=== PATIENT | male | born 1955 | race Caucasian/White ===

== ENCOUNTER 2018-12-30 08:43 | Emergency (ER) | payer OTHER ==
--- NOTE | 2018-12-30 08:55 | PDOC ---
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 He says he woke up with sudden pain that started in his stump with radiation to his right hip; pain is throbbing in nature and constant. He states it feels similar to his previous "clot pains." His nurse at the rehab facility called EMS for concern of clot. Patient states his right BKA 3 weeks ago was for an infection and has been in rehab since for therapy and for prosthetic fitting. He denies fever, chills, BRADEN , chest pain, SOB, syncope, falls, dysuria, erythema, unilateral leg swelling, incision drainage. He did however endorse 2 days of palpitations with no inciting events that is atypical for him. Of note, he notes recent flareup of his UC 4-5 days ago with blood per rectum and loose stools and his AC (plavix and eliquis) being held. PMHx: as noted above ROS: as noted SHx: Denies tobacco use; no recent alcohol use; no rec drugs Allergies: NKDA Past History - Past Medical History Allergies/Adverse Reactions: Allergies Allergy/AdvReac Type Severity Reaction Status Date / Time No Known Drug Allergies Allergy Verified 12/30/18 09:02 Review of Systems - Review of Systems Comments:: 12/30/18 12:19 GENERAL/CONSTITUTIONAL: No fever or chills. No weakness. HEAD, EYES, EARS, NOSE AND THROAT: No change in vision. No ear pain or discharge. No sore throat. CARDIOVASCULAR: No chest pain or shortness of breath RESPIRATORY: No cough, wheezing, or hemoptysis. GASTROINTESTINAL: No nausea, vomiting, diarrhea or constipation. GENITOURINARY: No dysuria, frequency, or change in urination. MUSCULOSKELETAL: +right stump pain SKIN: No rash NEUROLOGIC: No headache, vertigo, loss of consciousness, or change in strength/ sensation. ENDOCRINE: No increased thirst. No abnormal weight change HEMATOLOGIC/LYMPHATIC: No anemia, easy bleeding, or history of blood clots. ALLERGIC/IMMUNOLOGIC: No hives or skin allergy. *Physical Exam - Physical Exam Comments: 12/30/18 12:20 GENERAL: Awake, alert, and fully oriented, mild acute distress HEAD: No signs of trauma, normocephalic, atraumatic EYES: EOMI, sclera anicteric, conjunctiva clear ENT: Auricles normal inspection, hearing grossly normal, nares patent, oropharynx clear without exudates. Moist mucosa. Poor dentition NECK: Normal ROM, no lymphadenopathy LUNGS: No increased work of breathing, symmetrical chest rise, clear to auscultation bilaterally, no wheezes, crackles or rhonchi HEART: Regular rate and rhythm, normal S1 and S2, no murmurs, peripheral pulses 2+ and equal bilaterally. ABDOMEN: Soft, nontender, nondistended, normoactive bowel sounds. No guarding, no rebound. No masses EXTREMITIES: BL LE BKA; left stump with well healed scar, FROM, sensation intact ; right stump with well healing incision, shemar in place, no drainage or purulence, ROM limited by pain, TTP in stump and upper leg NEUROLOGICAL: Cranial nerves II through XII grossly intact. 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 In the setting of prior history as well recent surgery and AC being held, workup for DVT is warranted. SSI is unlikely given well healing scar, no induration or fluctuance, no drainage or purulence. Postop pain also possible -cbc, cmp, coags, tsh -BL LE DVT duplex -ofirmev 12/30/18 14:18 pain completely resolved with ofirmev PROM fully intact now and not limited by pain Discussed with patient that pain may be due to postop pain and therapy; recommended to continue therapy with focus on strengthening and stretching to prevent stiffness labs similar to his baseline; Hb/Hct from [facility] 10.5/33.4 from 12/22/18 same as levels here Patient comfortable with instruction and will DCd to [facility] for continued rehab *DC/Admit/Observation/Transfer Diagnosis at time of Disposition: Right leg pain - Discharge Dispostion Disposition: HOME Condition at time of disposition: Improved Decision to Admit order: No - Referrals Referrals: Boy Wills MD [Primary Care Provider] - - Patient Instructions Printed Discharge Instructions: DI for Leg Pain Additional Instructions: Additional Instructions: Please return to the emergency department with any new or worsening symptoms or concerns including severe leg pain, redness at incision site, drainage from incision site, severe swelling. Please follow up with a PCP for further management of UC and pain control Please continue therapy at rehab center and take meds as prescribed for pain control. - Post Discharge Activity
[2018-12-30 09:08] VITALS: TEMP 98.2; BMI 18.8
--- NOTE | 2018-12-30 09:26 | PDOC ---
Attending Attestation - Resident Resident Name: Trey Cummings - ED Attending Attestation I have performed the following: I have examined & evaluated the patient, The case was reviewed & discussed with the resident, I agree w/resident's findings & plan, Exceptions are as noted - HPI HPI: 12/30/18 10:07 63y M hx of factor V leiden, ulcerative colitis, hx of dvts (off ac because of recent rectl bleeding), sp b/l bka (RLE BKA several weeks ago) presents with 10/ 10 R leg pain starting this morning upon awakening. Pt has been doing rehab yesteday, today, when he woke up he saw his dressing fell off and that his knee was stiff, but painless niially but developed severe 10/10 pain on he medial aspect of his stump. pt deines any other trauma/injuies. Denie any fever/chills , cp, sob, abd pain, diarrhea, bpr, melena, back pain. on exam pt: Ext: b/l BKA, R stump has shemar in place with mild erythema w/o warmth/ induraiton/discharge on latearl aspect of wound. no obvious deformity or focal tendernes. mild ttp on medial aspect of stump but withou erythma/induration/ fluctuance. normal flexion/extension of R hip, unable to flex his R knee Abd: soft nontender card: rrr, no mg pulm: cta bl ddx - phantom limb pain, musle strain/tightnes due to rehab, consider dvt will obtain blood work analesia w/ tylenol & flexeril xray, US will reassess - Physicial Exam PE: 12/30/18 14:48 see above - Medical Decision Making 12/30/18 13:29 pts labs reviewed dVT study negative will reassess, antiticptae dc with PMD fu and ouptient mangement 12/30/18 14:47 labs reviewed US and xray neg pt was feeling beter, but the pain just returned will give the pt a ramadol and dc the pt with flexeril and supporive mangement and PMD fu suspect his sypmoms are secondary to muscle spasm/strain from his recent rehab return precaution were discused Heart Score/ECG Review - ECG Impressions Comment:: 12/30/18 13:29 Twelve-lead EKG was performed and reviewed by me. There is normal sinus rhythm with a normal rate. rate of 79 The axis is normal. The intervals are normal. There is normal R wave progression There are no ST or T wave abnormalities. Impression: Normal twelve-lead EKG
[2018-12-30] MEDS ORDERED: ACETAMINOPHEN 1000 MG/100 ML VIAL (NON FORMULARY) IVPB ONE (09:36)
[2018-12-30] MEDS ORDERED: ACETAMINOPHEN INJECTION 100 ML IVPB ONE (10:30)
[2018-12-30 10:42] LABS: BASO % 1.1 % (0-2.0); EOS % 2.4 % (0-4.5); HEMATOCRIT 33.6 % (35.4-49); HEMOGLOBIN 10.9 GM/dL (11.7-16.9); LYMPH % 7.5 % (8-40); MCH 26.8 pg (25.7-33.7); MCHC 32.4 g/dl (32.0-35.9); MEAN CELL VOLUME 82.9 fl (80-96); MEAN PLT VOLUME 7.1 fl (7.5-11.1); MONO % 5.1 % (3.8-10.2); NEUT % 83.9 % (42.8-82.8); PLATELET COUNT 506 K/MM3 (134-434); RBC 4.05 M/mm3 (4.00-5.60); RDW 19.1 % (11.9-15.9); WHITE BLOOD COUNT 12.3 K/mm3 (4.0-10.0)
[2018-12-30] MEDS ORDERED: CYCLOBENZAPRINE HCL 5 MG TABLET PO ONE (11:04)
[2018-12-30 11:15] LABS: ALBUMIN 3.3 g/dl (3.4-5.0); BILIRUBIN,TOTAL 0.5 mg/dL (0.2-1); BLOOD UREA NITROGEN 10.4 mg/dL (7-18); CALCIUM 9.5 mg/dL (8.5-10.1); CREATININE 0.7 mg/dL (0.55-1.3); TOT PROT 6.4 g/dl (6.4-8.2)
--- NOTE | 2018-12-30 12:23 | EKG ---
Test Reason : Blood Pressure : / mmHG Vent. Rate : 079 BPM Atrial Rate : 079 BPM P-R Int : 130 ms QRS Dur : 080 ms QT Int : 368 ms P-R-T Axes : 069 075 064 degrees QTc Int : 421 ms NORMAL SINUS RHYTHM NORMAL ECG WHEN COMPARED WITH ECG OF 02-FEB-2007 17:53, NO SIGNIFICANT CHANGE WAS FOUND Confirmed by GERALD BAY MD ([id number]) on 12/30/2018 12:23:05 PM Referred By: Confirmed By:GERALD BAY MD
[2018-12-30] MEDS ORDERED: CYCLOBENZAPRINE HCL 10 MG TABLET (FP) ONE (12:28)
[2018-12-30] MEDS ORDERED: traMADol HCL 50 MG TABLET PO ONE (14:47)
[2018-12-30] MEDS ORDERED: traMADol HCL 50 MG TABLET ONE (15:31)
[2018-12-30 18:54] VITALS: BP 133/89; PULSE 96
[2018-12-30] MEDS ORDERED: KETOROLAC TROMETHAMINE 30 MG/1 ML VIAL IVPUSH ONE (20:13)
[2018-12-30] MEDS ORDERED: KETOROLAC TROMETHAMINE 30 MG/1 ML VIAL ONE (20:15)
== END 2018-12-30 20:42 ==
LOC: JER 08:43
PROC: 3E033NZ Introduction of Analgesics, Hypnotics, Sedatives into Peripheral Vein, Percutaneous Approach (ICD-10-PCS; principal; 2018-12-30)
PROC: 3E0333Z Introduction of Anti-inflammatory into Peripheral Vein, Percutaneous Approach (ICD-10-PCS; 2018-12-30)
DX: Z89.511 Acquired absence of right leg below knee (principal); Z89.512 Acquired absence of left leg below knee; K62.5 Hemorrhage of anus and rectum; Z86.711 Personal history of pulmonary embolism; Z86.718 Personal history of other venous thrombosis and embolism; Z87.898 Personal history of other specified conditions; Z79.01 Long term (current) use of anticoagulants; D68.51 Activated protein C resistance; Z87.19 Personal history of other diseases of the digestive system
CPT/HCPCS: 36415; 73560-TC-RT-FY; 80053; 84439; 84443; 85025; 93005; 93010; 93970-TC; 99282-25; J0131

== ENCOUNTER 2019-06-20 10:03 | Inpatient (IN) | payer OTHER ==
--- NOTE | 2019-06-20 11:21 | PDOC ---
History of Present Illness - General History Source: Patient Exam Limitations: No Limitations - History of Present Illness Initial Comments: 06/20/19 11:42 Patient is a 64-year-old male with history of factor V Leiden, ulcerative colitis, peripheral arterial disease and bilateral BKA's who presents to the ED after being told to come to the ED for admission for osteomyelitis of his right stump. The patient states he had his right lower extremity amputated 6 months ago. He has had multiple episodes of infection including a debridement and wound VAC a few months ago. He states that the debridement and wound VAC was done at [facility]. He denies any fevers or chills. He was seen by Dr. 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 He does admit to having some pain to the right stump. He denies any drainage. <Queta Arriaza - Last Filed: 06/21/19 23:54> <Brendan Walters - Last Filed: 06/24/19 07:51> - General Chief Complaint: Wound Stated Complaint: SENT BY DR. AMADOR Time Seen by Provider: 06/20/19 10:50 Past History - Past Medical History COPD: No GI Disorders: Yes (ulcerative colitis) Hypercholesterolemia: Yes - Surgical History Orthopedic Surgery: Yes - Immunization History Immunization Up to Date: Yes - Psycho Social/Smoking Cessation Hx Smoking History: Never smoked Have you smoked in the past 12 months: No If you are a former smoker, when did you quit?: 15 years ago Information on smoking cessation initiated: No Hx Alcohol Use: No Drug/Substance Use Hx: No <Queta Arriaza - Last Filed: 06/21/19 23:54> <Brendan Walters - Last Filed: 06/24/19 07:51> - Past Medical History Allergies/Adverse Reactions: Allergies Allergy/AdvReac Type Severity Reaction Status Date / Time mercaptopurine Allergy Verified 05/20/19 11:32 Home Medications: Ambulatory Orders Aspirin [ASA -] 1 tab PO DAILY 05/20/19 Folic Acid 1 tab PO DAILY 05/20/19 Multivitamin [Multiple Vitamins] 1 tab PO DAILY 05/20/19 Atorvastatin Calcium [Lipitor] 20 mg PO DAILY 06/21/19 Thiamine HCl [Vitamin B1] 100 mg PO BID 06/21/19 Review of Systems - Review of Systems Comments:: 06/20/19 11:45 - Review of Systems Able to Perform ROS?: Yes Constitutional: No: Fever, Chills, Loss of Appetite, Night Sweats, Weakness HEENTM: No: Eye Pain, Vision changes, Ear Pain, Throat Pain, Throat Swelling, Mouth Pain, Difficulty Swallowing Respiratory: No: Cough, Shortness of Breath, Wheezing, Sputum Production Cardiac (ROS): No: Chest Pain, Chest Tightness, Palpitations, Irregular Heart Beat, Edema ABD/GI: No: Nausea, Vomiting, Abdominal Pain, Diarrhea : No Dysuria, No Hematuria, No Frequency, No Urgency Musculoskeletal: No: Muscle Pain, Back Pain, Joint Pain, Muscle Weakness, Neck Pain, Positive: Right stump osteomyelitis Integumentary: No: Lesions, Rash Neurological: No: Headache, Numbness, Tingling, Weakness, Speech Difficulties <Queta Arriaza - Last Filed: 06/21/19 23:54> *Physical Exam - Vital Signs Last Vital Signs Temp Pulse Resp BP Pulse Ox 97.8 F 83 16 136/70 97 06/20/19 10:13 06/20/19 10:13 06/20/19 10:13 06/20/19 10:13 06/20/19 10:13 - Physical Exam - Physical Exam General Appearance: Nourished, Appropriately Dressed, No Distress HEENT: EOMI, Normal Voice, No Muffled/Hoarse voice, Hearing Grossly Normal Neck: Supple, No Lymphadenopathy (R), No Lymphadenopathy (L), No Rigidity, No Decreased range of motion Respiratory/Chest: Lungs Clear, Normal Breath Sounds. No Respiratory Distress, No Accessory Muscle Use Cardiovascular: Regular Rhythm, Regular Rate, S1, S2 Gastrointestinal/Abdominal: Normal Bowel Sounds, Soft. Non-tender, No Guarding , No Rebound, No Rigidity Musculoskeletal: Normal Inspection. No Decreased Range of Motion; Right stump with erythema appreciated without warmth to touch. There is a wound to the area that is not draining. There is moderate tenderness to palpation; left bka stump without tenderness. Chronic skin changes appreciated. Extremity: Normal Capillary Refill, Normal Inspection Integumentary: Normal Color, Dry. No Rash Neurologic: elevator service technician II-XII NML intact, Fully Oriented, Alert, Normal Mood/Affect, Normal Response <Queta Arriaza D - Last Filed: 06/21/19 23:54> - Vital Signs Last Vital Signs Temp Pulse Resp BP Pulse Ox 98.8 F 66 18 123/58 L 100 06/24/19 05:00 06/24/19 05:00 06/24/19 05:00 06/24/19 05:00 06/21/19 00:05 <SelenaBrendan - Last Filed: 06/24/19 07:51> ED Treatment Course - LABORATORY CBC & Chemistry Diagram: 06/21/19 07:25 06/21/19 07:25 <ArsalanQueta D - Last Filed: 06/21/19 23:54> - LABORATORY CBC & Chemistry Diagram: 06/23/19 06:25 06/23/19 06:25 - ADDITIONAL ORDERS Additional order review: 06/20/19 11:40 Blood Culture - Preliminary Blood - Peripheral Venous NO GROWTH OBTAINED AFTER 72 HOURS, INCUBATION TO CONTINUE FOR 2 DAYS. 06/20/19 11:40 RBC 4.90 MCV 90.9 MCHC 35.0 RDW 15.7 D MPV 7.4 L Neutrophils % 68.1 Lymphocytes % 18.3 Monocytes % 9.8 Eosinophils % 2.7 Basophils % 1.1 - Medications Given in the ED: ED Medications Discontinued Medications Generic Name Dose Route Start Last Admin Trade Name Stephanq PRN Reason Stop Dose Admin Heparin Sodium (Porcine) 5,000 unit 06/20/19 18:00 06/20/19 18:11 Heparin - SQ 5,000 unit Q8H-IV CAMELIA Administration Piperacillin Sod/Tazobactam 50 mls @ 100 mls/hr 06/20/19 11:41 06/20/19 12:41 Sod 3.375 gm/ Dextrose IVPB 06/20/19 12:10 100 mls/hr ONCE ONE Administration Protocol Vancomycin HCl 1,000 mg/ 250 mls @ 200 mls/hr 06/21/19 10:00 06/21/19 15:24 Dextrose IVPB Not Given Q24H CAMELIA Protocol Piperacillin Sod/Tazobactam 50 mls @ 100 mls/hr 06/20/19 20:00 06/21/19 19:54 Sod 3.375 gm/ Dextrose IVPB Not Given Q8H-IV CAMELIA Protocol Piperacillin Sod/Tazobactam 50 mls @ 100 mls/hr 06/20/19 20:00 06/21/19 10:40 Sod 3.375 gm/ Dextrose IVPB 06/21/19 19:59 100 mls/hr Q8H-IV CAMELIA Administration Protocol Influenza Virus Vaccine Quadrival 60 mcg 06/21/19 10:00 06/21/19 15:19 Flulaval Quad [id number] IM 06/21/19 10:01 60 mcg .ONCE ONE Administration Vancomycin HCl 1,000 mg 06/20/19 11:41 06/20/19 12:43 Vancomycin (Pre-Docked) IVPB 06/20/19 11:42 1,000 mg ONCE ONE Administration Protocol <Brendan Walters - Last Filed: 06/24/19 07:51> Medical Decision Making - Medical Decision Making 06/20/19 11:19 Assessment: Pt is a 64 y/o male sent to the ED for admission for a Right stump osteomyelitis by his wound care doctor. The patient states he has some pain but it has been stable. He has no fevers. Plan: -Saline lock -labs ordered -blood culture ordered -Dr. Piyush Amador, paged 11:20 am -Vanc/zosyn ordered -Will reassess 06/20/19 12:52 The patient's labs are stable. We will admit him for IV antibiotics for osteomyelitis of his right stump. He understands and agrees with this treatment and plan he is stable for admission. [facility] hospitalist contacted for admission. 06/20/19 13:[address] Ramirez who will admit the patient, accepted to Dr. Robles's service for admission. <Queta Arriaza - Last Filed: 06/21/19 23:54> - Medical Decision Making 06/24/19 07:51 I reviewed the case of the mid-level practitioner and was available for consultation while in the emergency department <Brendan Walters - Last Filed: 06/24/19 07:51> Discharge - Discharge Information Problems reviewed: Yes - Admission Yes <Queta Arriaza - Last Filed: 06/21/19 23:54> <Brendan Walters - Last Filed: 06/24/19 07:51> - Discharge Information Clinical Impression/Diagnosis: Osteomyelitis of right leg Condition: Stable
[2019-06-20] MEDS ORDERED: PIPERACILLIN/TAZOB 3.375 GM 3.375 GM in DEXTROSE 5%-WATER - 50 ML IVPB ONE (11:41)
[2019-06-20] MEDS ORDERED: VANCOMYCIN 1 GM in D5W (PRE-DOCKED) 1,000 MG/250 ML IVPB ONE (11:41)
[2019-06-20 11:58] LABS: BASO % 1.1 % (0-2.0); EOS % 2.7 % (0-4.5); HEMATOCRIT 44.5 % (35.4-49); HEMOGLOBIN 15.6 GM/dL (11.7-16.9); LYMPH % 18.3 % (8-40); MCH 31.8 pg (25.7-33.7); MEAN CELL VOLUME 90.9 fl (80-96); MEAN PLT VOLUME 7.4 fl (7.5-11.1); MONO % 9.8 % (3.8-10.2); NEUT % 68.1 % (42.8-82.8); PLATELET COUNT 242 K/MM3 (134-434); RDW 15.7 % (11.9-15.9); WHITE BLOOD COUNT 6.1 K/mm3 (4.0-10.0)
[2019-06-20 12:07] LABS: INR 0.97 (0.83-1.09); PROTHROMBIN TIME (PATIENT) 11.5 SEC (9.7-13.0)
[2019-06-20 12:29] LABS: ALBUMIN 3.8 g/dl (3.4-5.0); BLOOD UREA NITROGEN 11.1 mg/dL (7-18); CREATININE 0.8 mg/dL (0.55-1.3); POTASSIUM 3.7 mmol/L (3.5-5.1); TOT PROT 6.7 g/dl (6.4-8.2)
[2019-06-20] MEDS ORDERED: PIPERACILLIN/TAZOB 3.375 GM 3.375 GM/50 ML BAG IVPB ONE ×2 (12:40→20:46)
--- NOTE | 2019-06-20 15:16 | CONSULT ---
- Consultation REQUESTING PROVIDER: Piyush Amador - Vascular Surgey / Wound Care CONSULT REQUEST: We have been asked to surgically evaluate this patient for ? OM to RLE BKA stump PCP: Jesus Robles HPI: Called to francisco 64 yo male w/ PMHx as noted below. Sent to [facility] ED by his PCP for further evaluation to r/o OM of his right BKA/stump. Patient states his right stump never fully healed. he's had a debridement and wound VAC application to assist in closure. He states it has gotten smaller after the VAC. Per ED documentation, patient was seen by Dr. 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 I don't see any documentation or labs supporting this. Patient has bilateral prosthesis and is unable to wear at this time because he c/o of some pain while wearing. Patient had similar ED visit on 12/30/18. Denies n/v/f/c. Denies pain to intermittent pain to his right stump. Denies any drainage. Denies odor emenating from wound. Denies skin temperature changes around wound. PMHx: Factor V Leiden, Ulcerative colitis, PAD, Multiple LE DVTs, Renal Vein Thrombosis PSHx: Left BKA 2009 Right BKA 12/10/18 Right BKA stump debridement/Wound VAC Home Meds Aspirin [ASA -] 1 tab PO DAILY 05/20/19 Folic Acid 1 tab PO DAILY 05/20/19 Multivitamin [Multiple Vitamins] 1 tab PO DAILY 05/20/19 Allergies Mercaptopurine ROS: 12 system review. Considered negative except for what's contained in the HPI. PE: GEN: A&O. NAD. HEAD: NC. AT. LUNGS: CTA bilat HEART: RRR ABD: Soft, nontender, not distended, UE: 2+ pulses, warm, well-perfused. No cyanosis. Cap refill <2 seconds. No peripheral edema. LE: LLE palpable femoral and politeal. BKA stump scar well healed. flex to 90 degrees and extends to 180 degrees. RLE palpable femoral + politeal. BKA flex to 90 degrees and extends to 180 degrees. Stump with small opening ~ 2 mm x 2 mm / overall the wound is largely contracted with scar tissue. Not malodorous. No drainage. Not tender to palpation. Tibia is superficial and inferior flap/muscle appears to have receded from covering bone. Skin intact and viable. PSYCH: Cooperative. Good eye contact. Appropriate mood and affect. Last Vital Signs Temp Pulse Resp BP Pulse Ox 97.9 F 73 16 105/57 L 98 06/20/19 15:03 06/20/19 15:03 06/20/19 15:03 06/20/19 15:03 06/20/19 15:03 CBC, BMP 06/20/19 11:40 06/20/19 11:40 Problem List - Problems (1) History of below-knee amputation of both lower extremities Assessment/Plan: Recommend wound culture f/u Right BKA Xray, possible further imaging pending results ID following Cont medical management at this time. Code(s): Z89.511 - ACQUIRED ABSENCE OF RIGHT LEG BELOW KNEE; Z89.512 - ACQUIRED ABSENCE OF LEFT LEG BELOW KNEE (2) Factor V Leiden Code(s): D68.51 - ACTIVATED PROTEIN C RESISTANCE (3) PAD (peripheral artery disease) Code(s): I73.9 - PERIPHERAL VASCULAR DISEASE, UNSPECIFIED (4) Multiple episodes of deep venous thrombosis Code(s): I82.509 - CHRONIC EMBOLISM AND THOMBOS UNSP DEEP VN UNSP LOW EXTRM Visit type - Case Type Case Type: ED Admission - Emergency Emergency Visit: Yes ED Registration Date: 06/20/19 Care time: The patient presented to the Emergency Department on the above date and was hospitalized for further evaluation of their emergent condition. - New patient This patient is new to me today: Yes Date on this admission: 06/20/19
--- NOTE | 2019-06-20 15:23 | HP ---
CHIEF COMPLAINT: right stump nonhealing wound PCP:Dr. Munoz HISTORY OF PRESENT ILLNESS: Patient is a 64 year old male with past medical history Factor V Leiden, renal vein thrombosis, LE DVTs, Peripheral artery disease s/p bilateral BKA, hx of C. diff colitis, presented to the ED due to nonhealing wound around the right stump , with recent MRI done showing osteomyelitis of the right tibia. Patient had R BKA done 7 months ago at [facility], and since then reported the surgical site wound never be healed, and he had multiple episodes of infections with debridement and wound vac. About a month ago, he was seen at wound care clinic, where wound cultures were done and MRI was ordered. Few days ago, patient did the MRI and was found to have osteomyelitis of the right tibia. Patient was informed and was told to come to the hospital for IV antibiotics, hence patient came in. Patient also reports nasal congestion and productive cough in the past 3 days, but denies any fever, chills, headache, dizziness, chest pain, SOB, abdominal pain, diarrhea, urinary symptoms. ER course was notable for: (1) (2) (3) Recent Travel:denies PAST MEDICAL HISTORY: Factor V Leiden renal vein thrombosis LE DVTs Peripheral artery disease s/p bilateral BKA C. diff colitis PAST SURGICAL HISTORY: Left BKA (9 years ago) Right BKA (October 2018) Social History: Smoking:denies Alcohol:drinks 2 cans of beers daily Drugs: denies Family History: Father, Uncle - blood disorders Allergies mercaptopurine Allergy (Verified 05/20/19 11:32) HOME MEDICATIONS: Home Medications Medication Instructions Recorded Aspirin [ASA -] 1 tab PO DAILY 05/20/19 Folic Acid 1 tab PO DAILY 05/20/19 Multivitamin [Multiple Vitamins] 1 tab PO DAILY 05/20/19 REVIEW OF SYSTEMS CONSTITUTIONAL: Absent: fever, chills, diaphoresis, generalized weakness, malaise, loss of appetite, weight change HEENT: Absent: rhinorrhea, nasal congestion, throat pain, throat swelling, difficulty swallowing, mouth swelling, ear pain, eye pain, visual changes CARDIOVASCULAR: Absent: chest pain, syncope, palpitations, irregular heart rate, lightheadedness , peripheral edema RESPIRATORY: cough Absent:shortness of breath, dyspnea with exertion, orthopnea, wheezing, stridor , hemoptysis GASTROINTESTINAL: Absent: abdominal pain, abdominal distension, nausea, vomiting, diarrhea, constipation, melena, hematochezia GENITOURINARY: Absent: dysuria, frequency, urgency, hesitancy, hematuria, flank pain, genital pain MUSCULOSKELETAL: Absent: myalgia, arthralgia, joint swelling, back pain, neck pain SKIN: Absent: rash, itching, pallor HEMATOLOGIC/IMMUNOLOGIC: Absent: easy bleeding, easy bruising, lymphadenopathy, frequent infections ENDOCRINE: Absent: unexplained weight gain, unexplained weight loss, heat intolerance, cold intolerance NEUROLOGIC: Absent: headache, focal weakness or paresthesias, dizziness, unsteady gait, seizure, mental status changes, bladder or bowel incontinence PSYCHIATRIC: Absent: anxiety, depression, suicidal or homicidal ideation, hallucinations. PHYSICAL EXAMINATION Vital Signs - 24 hr 06/20/19 10:13 Temperature 97.8 F Pulse Rate 83 Respiratory 16 Rate Blood Pressure 136/70 O2 Sat by Pulse 97 Oximetry (%) GENERAL: Awake, alert, and fully oriented, in no acute distress. HEAD: Normal with no signs of trauma. EYES: PERRLA, EOMI, sclera anicteric, conjunctiva clear. EARS, NOSE, THROAT: Moist mucous membranes. NECK: Normal range of motion, supple LUNGS: Breath sounds equal, clear to auscultation bilaterally. HEART: Regular rate and rhythm, normal S1 and S2 without murmur, rub or gallop. ABDOMEN: Soft, nontender, not distended, normoactive bowel sounds. MUSCULOSKELETAL: Normal range of motion at all joints LOWER EXTREMITIES: 2+ pulses, warm, well-perfused. Left stump with well healed scar, with erythema around stump area, sensation intact. ROM intact. Right stump with erythema, mild tendernes, nondraining wound at the incision site, ROM and sensation intact. NEUROLOGICAL: Cranial nerves II-XII intact. Normal speech. Normal gait. PSYCHIATRIC: Cooperative. Good eye contact. Appropriate mood and affect. SKIN: Warm, dry, normal turgor. Laboratory Results - last 24 hr 06/20/19 06/20/19 06/20/19 11:40 11:40 11:40 WBC 6.1 RBC 4.90 Hgb 15.6 Hct 44.5 MCV 90.9 MCH 31.8 MCHC 35.0 RDW 15.7 D Plt Count 242 MPV 7.4 L Absolute Neuts (auto) 4.2 Neutrophils % 68.1 Lymphocytes % 18.3 Monocytes % 9.8 Eosinophils % 2.7 Basophils % 1.1 Nucleated RBC % 2 H PT with INR 11.50 INR 0.97 Sodium 141 Potassium 3.7 Chloride 107 Carbon Dioxide 27 Anion Gap 7 L BUN 11.1 Creatinine 0.8 Est GFR (CKD-EPI)AfAm 110.96 Est GFR (CKD-EPI)NonAf 95.74 Random Glucose 130 H Calcium 9.0 Total Bilirubin 1.0 AST 16 ALT 32 Alkaline Phosphatase 91 Total Protein 6.7 Albumin 3.8 Blood Type Antibody Screen 06/20/19 11:40 WBC RBC Hgb Hct MCV MCH MCHC RDW Plt Count MPV Absolute Neuts (auto) Neutrophils % Lymphocytes % Monocytes % Eosinophils % Basophils % Nucleated RBC % PT with INR INR Sodium Potassium Chloride Carbon Dioxide Anion Gap BUN Creatinine Est GFR (CKD-EPI)AfAm Est GFR (CKD-EPI)NonAf Random Glucose Calcium Total Bilirubin AST ALT Alkaline Phosphatase Total Protein Albumin Blood Type O POSITIVE Antibody Screen Negative ASSESSMENT/PLAN: Patient is a 64 year old male with past medical history Factor V Leiden, renal vein thrombosis, LE DVTs, Peripheral artery disease s/p bilateral BKA, hx of C. diff colitis, presented to the ED due to nonhealing wound around the right stump , with recent MRI done showing osteomyelitis of the right tibia. #Osteomyelitis of R tibia -RLE MRI (06/10/2019)-There is subcutaneous edema at the level of the amputation and stump with enhancement compatible with evolving cellulitis and possible evolving ulceration. There is enhancement within the bone marrow of the remnant aspect of the tibia in its most distal aspect compatible with osteomyelitis. No evidence of abscess collection. No evidence of osteomyelitis of the remnant proximal third of the fibula. -Wound culture (05/20/2019) of right stump: Klebsiella, staph aureus, Staph coag neg, Diptheria/Corynebacterium -will start Vanc and Zosyn -blood cultures pending -ID (Dr. Palacio) consulted. -Surgery (Dr. Amador) consulted. -Left knee erythema, will order Left knee xray #Acute URI, likely viral -flu swab, RSV -Urine legionella/pneumoniae ordered -CXR #Etoh use -drinks 2 cans of beers daily -CIWA 0 -no indication to start detox at this time -close monitoring #Hx of Factor V Leiden, PAD, DVT -not on Eliquis, patient stopped taking it because it was causing bleed to right stump surgical site -may benefit from heme consult, for further management as patient would benefit from AC given thrombosis on multiple sites -hold ASA 81mg daily, pending surgical consult for possible debridement/?bone biopsy #FEN -not on any standing fluids -Electrolytes wnl, routine bmp monitoring -Sodium restricted diet #Prophylaxis -Heparin 5000u sq tid #Disposition -full code -admit to med surg Visit type - Emergency Visit Emergency Visit: Yes ED Registration Date: 06/20/19 Care time: The patient presented to the Emergency Department on the above date and was hospitalized for further evaluation of their emergent condition. - New Patient This patient is new to me today: Yes Date on this admission: 06/20/19 - Critical Care Critical Care patient: No ATTENDING PHYSICIAN STATEMENT I saw and evaluated the patient. I reviewed the resident's note and discussed the case with the resident. I agree with the resident's findings and plan as documented. SUBJECTIVE: OBJECTIVE: ASSESSMENT AND PLAN:
[2019-06-20] MEDS: LACTOBACILLUS ACIDOPHILUS 1 TABLET PO SCH (16:40)
[2019-06-20] MEDS ORDERED: HEPARIN NA (PORCINE) 5,000 UNITS/ML 1ML VIAL SQ SCH (18:00)
--- NOTE | 2019-06-20 18:06 | PN ---
Teaching Attending Note Name of Resident: Carol Geller ATTENDING PHYSICIAN STATEMENT I saw and evaluated the patient. I reviewed the resident's note and discussed the case with the resident. I agree with the resident's findings and plan as documented. SUBJECTIVE: Patient seen and examined at bedside. Was called to go to ER for MRI findings of R stump OM, grossly asymptomatic, c/o however of mild URI symptoms over the past few days. Objective: GENERAL: Awake, alert, and fully oriented, in no acute distress. AAox3 HEAD: Normal with no signs of trauma. EYES: PERRLA, EOMI, sclera anicteric, conjunctiva clear. EARS, NOSE, THROAT: Moist mucous membranes. NECK: Normal range of motion, supple LUNGS: Breath sounds equal, clear to auscultation bilaterally. HEART: Regular rate and rhythm, normal S1 and S2 without murmur, rub or gallop. ABDOMEN: Soft, nontender, not distended, normoactive bowel sounds. MUSCULOSKELETAL: Normal range of motion at all joints LOWER EXTREMITIES: warm, well-perfused. Left stump with well healed scar, with mild erythema around stump area, sensation intact. ROM intact. Right stump with erythema, mild tenderness, draining faint serous fluid, wound at the incision site, ROM and sensation intact. NEUROLOGICAL: Cranial nerves II-XII intact. Normal speech. Normal gait. PSYCHIATRIC: Cooperative. Good eye contact. Appropriate mood and affect. SKIN: Warm, dry, normal turgor. Vital Signs - 24 hr 06/20/19 06/20/19 06/20/19 10:13 15:03 17:17 Temperature 97.8 F 97.9 F 98.6 F Pulse Rate 83 Pulse Rate [ 73 69 Left Apical] Respiratory 16 16 16 Rate Blood Pressure 136/70 Blood Pressure 105/57 L 121/59 L [Left Arm] O2 Sat by Pulse 97 98 95 Oximetry (%) Laboratory Results - last 24 hr 06/20/19 06/20/19 06/20/19 11:40 11:40 11:40 WBC 6.1 RBC 4.90 Hgb 15.6 Hct 44.5 MCV 90.9 MCH 31.8 MCHC 35.0 RDW 15.7 D Plt Count 242 MPV 7.4 L Absolute Neuts (auto) 4.2 Neutrophils % 68.1 Lymphocytes % 18.3 Monocytes % 9.8 Eosinophils % 2.7 Basophils % 1.1 Nucleated RBC % 2 H ESR PT with INR 11.50 INR 0.97 Sodium 141 Potassium 3.7 Chloride 107 Carbon Dioxide 27 Anion Gap 7 L BUN 11.1 Creatinine 0.8 Est GFR (CKD-EPI)AfAm 110.96 Est GFR (CKD-EPI)NonAf 95.74 Random Glucose 130 H Calcium 9.0 Total Bilirubin 1.0 AST 16 ALT 32 Alkaline Phosphatase 91 Total Protein 6.7 Albumin 3.8 Influenza A (Rapid) Influenza B (Rapid) RSV Rapid Blood Type Antibody Screen 06/20/19 06/20/19 06/20/19 11:40 16:48 16:48 WBC RBC Hgb Hct MCV MCH MCHC RDW Plt Count MPV Absolute Neuts (auto) Neutrophils % Lymphocytes % Monocytes % Eosinophils % Basophils % Nucleated RBC % ESR PT with INR INR Sodium Potassium Chloride Carbon Dioxide Anion Gap BUN Creatinine Est GFR (CKD-EPI)AfAm Est GFR (CKD-EPI)NonAf Random Glucose Calcium Total Bilirubin AST ALT Alkaline Phosphatase Total Protein Albumin Influenza A (Rapid) Negative Influenza B (Rapid) Negative RSV Rapid Negative Blood Type O POSITIVE Antibody Screen Negative 06/20/19 16:56 WBC RBC Hgb Hct MCV MCH MCHC RDW Plt Count MPV Absolute Neuts (auto) Neutrophils % Lymphocytes % Monocytes % Eosinophils % Basophils % Nucleated RBC % ESR 7 PT with INR INR Sodium Potassium Chloride Carbon Dioxide Anion Gap BUN Creatinine Est GFR (CKD-EPI)AfAm Est GFR (CKD-EPI)NonAf Random Glucose Calcium Total Bilirubin AST ALT Alkaline Phosphatase Total Protein Albumin Influenza A (Rapid) Influenza B (Rapid) RSV Rapid Blood Type Antibody Screen Home Medications Medication Instructions Recorded Aspirin [ASA -] 1 tab PO DAILY 05/20/19 Folic Acid 1 tab PO DAILY 05/20/19 Multivitamin [Multiple Vitamins] 1 tab PO DAILY 05/20/19 Current Medications Generic Name Dose Route Start Last Admin Trade Name Freq PRN Reason Stop Dose Admin Heparin Sodium (Porcine) 5,000 unit 06/20/19 18:00 Heparin - SQ Q8H-IV CAMELIA Vancomycin HCl 1,000 mg/ 250 mls @ 200 mls/hr 06/21/19 10:00 Dextrose IVPB Q24H CAMELIA Protocol Piperacillin Sod/Tazobactam 50 mls @ 100 mls/hr 06/20/19 20:00 Sod 3.375 gm/ Dextrose IVPB Q8H-IV CAMELIA Protocol Piperacillin Sod/Tazobactam 50 mls @ 100 mls/hr 06/20/19 20:00 Sod 3.375 gm/ Dextrose IVPB 06/21/19 19:59 Q8H-IV CAMELIA Protocol Lactobacillus Acidophilus 1 tab 06/20/19 15:00 06/20/19 16:40 Bacid - PO 1 tab DAILY CAMELIA Administration 64 M h/o Factor V Leiden, renal vein thrombosis, LE DVTs (off AC for several months d/t ?GIB/colitis), Peripheral artery disease s/p bilateral BKA, hx of C. diff colitis s/p PO Vancomycin, presented to the ED due to non-healing wound around the right stump, with recent MRI done showing osteomyelitis of the right tibia was called in to go to ER for IV abx. Osteomyelitis of R tibia cont. IV Zosyn/Vancomycin, send blood cx, wound cx, will eventually need bone biopsy as gold standard for culture of wound. ID consult: Dr Palacio Vascular consult: Dr Perry GUZMAN symptoms obtain Flu/RSV/legionella/CXR supportive care ?Etoh abuse drinks 2 cans of beers daily CIWA 0 no indication to start detox at this time close monitoring Hx of Factor V Leiden, PAD, DVT Stopped taking Eliquis, patient stopped taking it because it was causing bleed to right stump surgical site as well as remote history of GIB due to ?colitis may benefit from heme consult, for further management as patient would benefit from AC given thrombosis on multiple sites hold ASA 81mg daily, pending surgical consult for possible debridement/?bone biopsy DVT ppx: Heparin SC Hematology consult for further AC Med Surg
[2019-06-20] MEDS ORDERED: HEPARIN NA (PORCINE) 5,000 UNITS/ML 1ML VIAL ONE (18:09)
[2019-06-20] MEDS: PIPERACILLIN/TAZOB 3.375 GM 3.375 GM in DEXTROSE 5%-WATER - 50 ML IVPB SCH (21:04)
[2019-06-21] MEDS ORDERED: PIPERACILLIN/TAZOBACTAM 3.375 GM VIAL IVPB ONE ×2 (02:09→10:35)
[2019-06-21] MEDS ORDERED: DEXTROSE 5%-WATER - 50 ML IVPB ONE ×2 (02:10→10:35)
[2019-06-21] MEDS: PIPERACILLIN/TAZOB 3.375 GM 3.375 GM in DEXTROSE 5%-WATER - 50 ML IVPB SCH ×3 (02:40→19:54)
[2019-06-21] MEDS: HEPARIN NA (PORCINE) 5,000 UNITS/ML 1ML VIAL SQ SCH ×3 (06:11→21:33)
[2019-06-21 07:51] LABS: BASO % 0.7 % (0-2.0); HEMATOCRIT 42.1 % (35.4-49); HEMOGLOBIN 14.5 GM/dL (11.7-16.9); LYMPH % 17.3 % (8-40); MCH 31.5 pg (25.7-33.7); MCHC 34.3 g/dl (32.0-35.9); MEAN CELL VOLUME 91.9 fl (80-96); MEAN PLT VOLUME 7.6 fl (7.5-11.1); MONO % 10.5 % (3.8-10.2); NEUT % 64.5 % (42.8-82.8); PLATELET COUNT 215 K/MM3 (134-434); RBC 4.58 M/mm3 (4.00-5.60); RDW 15.9 % (11.9-15.9); WHITE BLOOD COUNT 6.5 K/mm3 (4.0-10.0)
[2019-06-21 08:13] LABS: PROTHROMBIN TIME (PATIENT) 11.8 SEC (9.7-13.0)
[2019-06-21 08:15] LABS: ACTIVATED PTT 36.7 SECONDS (25.2-36.5)
[2019-06-21 08:18] LABS: ALBUMIN 3.3 g/dl (3.4-5.0); BILIRUBIN,TOTAL 1.4 mg/dL (0.2-1); BLOOD UREA NITROGEN 7.8 mg/dL (7-18); CALCIUM 8.7 mg/dL (8.5-10.1); CREATININE 0.7 mg/dL (0.55-1.3); MAGNESIUM 2.3 mg/dL (1.8-2.4); PHOSPHOROUS 3.4 mg/dL (2.5-4.9); TOT PROT 5.9 g/dl (6.4-8.2)
--- NOTE | 2019-06-21 09:41 | EKG ---
Test Reason : Blood Pressure : / mmHG Vent. Rate : 072 BPM Atrial Rate : 072 BPM P-R Int : 136 ms QRS Dur : 084 ms QT Int : 374 ms P-R-T Axes : 071 068 065 degrees QTc Int : 409 ms NORMAL SINUS RHYTHM NORMAL ECG WHEN COMPARED WITH ECG OF 30-DEC-2018 10:24, NO SIGNIFICANT CHANGE WAS FOUND Confirmed by Benedict Jolely MD ([id number]) on 06/21/2019 9:40:55 AM Referred By: Confirmed By:Benedict Jolley MD
[2019-06-21 09:59] LABS: BILIRUBIN,DIRECT 0.3 mg/dL (0.0-0.2)
[2019-06-21] MEDS ORDERED: VANCOMYCIN 1,000 MG in DEXTROSE 5%-WATER - 250 ML IVPB SCH (10:00)
[2019-06-21] MEDS ORDERED: FLU VACCINE QUAD 60 MCG/0.5 ML (MDV 19-20) IM ONE (10:00)
[2019-06-21] MEDS ORDERED: PT OWN MED DRAWER 7, Y5N ONE (10:35)
[2019-06-21] MEDS: MULTIVITAMINS (DAILY MVI) TABLET (FP) PO SCH (10:40)
[2019-06-21] MEDS: LACTOBACILLUS ACIDOPHILUS 1 TABLET PO SCH (10:40)
[2019-06-21] MEDS: FOLIC ACID 1 MG TABLET (FP) PO SCH (10:40)
--- NOTE | 2019-06-21 11:58 | CON.ID ---
Consult Consult Specialty:: infectious diseases Referred by:: Reason for Consultation:: osteo of the tibia - History of Present Illness Chief Complaint: non healing wound of the leg History of Present Illness: 64-year-old male with history of factor V Leiden, ulcerative colitis, peripheral arterial disease and bilateral BKA's who presents to the ED after being told to come to the ED for admission for osteomyelitis of his right stump. The patient states he had his right lower extremity amputated 6 months ago. He has had multiple episodes of infection including a debridement and wound VAC a few months ago. He states that the debridement and wound VAC was done at [facility]. He denies any fevers or chills. patient was worked up and his wound is growing multiple bacteria patient has taken off and on abx patient needs to get a bone biopsy to determine exactly what type of bacteria patient has - History Source History Provided By: Patient Limitations to Obtaining History: No Limitations - Alcohol/Substance Use Hx Alcohol Use: Yes (2 beers daily) - Smoking History Smoking history: Never smoked Have you smoked in the past 12 months: No If you are a former smoker, when did you quit?: 15 years ago Home Medications - Allergies Allergies/Adverse Reactions: Allergies Allergy/AdvReac Type Severity Reaction Status Date / Time mercaptopurine Allergy Verified 05/20/19 11:32 - Home Medications Home Medications: Ambulatory Orders RX: Aspirin [ASA -] 1 tab PO DAILY 05/20/19 RX: Folic Acid 1 tab PO DAILY 05/20/19 RX: Multivitamin [Multiple Vitamins] 1 tab PO DAILY 05/20/19 RX: Atorvastatin Calcium [Lipitor] 20 mg PO DAILY 06/21/19 RX: Thiamine HCl [Vitamin B1 -] 100 mg PO BID 06/21/19 RX: Gabapentin 300 mg PO BID 06/27/19 RX: Ceftriaxone [Rocephin -] 2 gm IVPB DAILY #36 vial 06/29/19 RX: Enoxaparin [Lovenox -] 50 mg SQ Q12H #1 disp.syrin 06/30/19 RX: Warfarin Na [Coumadin -] 7.5 mg PO DAILY@1800 #30 tablet 06/30/19 Review of Systems - Review of Systems Constitutional: reports: No Symptoms Eyes: reports: No Symptoms HENT: reports: No Symptoms Neck: reports: No Symptoms Cardiovascular: reports: No Symptoms Respiratory: reports: No Symptoms Gastrointestinal: reports: No Symptoms Genitourinary: reports: No Symptoms Musculoskeletal: reports: Other Integumentary: reports: Wound Neurological: reports: No Symptoms Endocrine: reports: No Symptoms Hematology/Lymphatic: reports: No Symptoms Psychiatric: reports: No Symptoms Physical Exam Vital Signs: Vital Signs Temperature 98.1 F 06/21/19 10:00 Pulse Rate 72 06/21/19 10:00 Respiratory Rate 20 06/21/19 10:00 Blood Pressure 110/52 L 06/21/19 10:00 O2 Sat by Pulse Oximetry (%) 100 06/21/19 00:05 Constitutional: Yes: Well Nourished, Calm, Mild Distress Eyes: Yes: Conjunctiva Clear HENT: Yes: Atraumatic, Normocephalic Neck: Yes: Supple, Trachea Midline Cardiovascular: Yes: Pulse Irregular Respiratory: Yes: Regular, CTA Bilaterally Gastrointestinal: Yes: Normal Bowel Sounds, Soft Musculoskeletal: Yes: WNL Extremities: Yes: Other Wound/Incision: Yes: Other (infected) Neurological: Yes: Alert, Oriented Psychiatric: Yes: Alert, Oriented Labs: CBC, BMP 06/21/19 07:25 06/21/19 07:25 Imaging - Results MRI: Report Reviewed, Image Reviewed Assessment/Plan 64 y/o with questionable h/o factor V leiden def, PVD, clotting in LE ( venous VS arterial ?) , non compliance, h/o L remote BKA, and recent R BKA, who presented due to an out patient MRI showing tibial OM. 1- OM in R tibia : 2- H/o Clotting disorder ( ? V Leiden def) , h/o DVT Vs arterial thrombosis: very poor historian and no previous records available. 3 hld wound infection plan needs biopsy of the tibia hold abx for now once biopsy is done will start abx wound care rest as per the team
--- NOTE | 2019-06-21 14:59 | PN ---
Physical Exam: SUBJECTIVE: Patient seen and examined at the bedside. Stated that he is feeling better. Continues to have some weakness throughout but overall improved. Endorses some pain at the site of ulcer on the lateral side but only to palpation. Denies cp, sob, abd pain, n/v/c/d, headaches, dizziness, lightheadedness, fever, chills, bleeding or fluid from the stump site. Noted that he is not compliant with visiting doctors or taking all medications on time. OBJECTIVE: Vital Signs Period Temp Pulse Resp BP Sys/Lam Pulse Ox Last 24 Hr 97.9 F-98.6 F 63-73 16-20 101-142/51-59 95-100 GENERAL: The patient is awake, alert, and fully oriented, in no acute distress. EYES: PERRL, extraocular movements intact, conjunctiva clear. No ptosis. ENT: Oropharynx clear without exudates, dry mucous membranes. NECK: Trachea midline, full range of motion, supple. LUNGS: Breath sounds equal, clear to auscultation bilaterally, no wheezes, no crackles, no accessory muscle use. HEART: Regular rate and rhythm, S1, S2 without murmur, rub. ABDOMEN: Soft, nontender, nondistended, normoactive bowel sounds, no guarding, no rebound, no masses. EXTREMITIES: Bilateral BKA, noted lesion of the R BKA stump, non-draining, non- bleeding. Chronic Ulcer NEUROLOGICAL: Moving all limbs spontaneously and has 5/5 muscle strength throughout. Sensation intact to gross touch. PSYCH: Pressured speech. Compliant with exam. SKIN: As above on extremities. Dry, warm. Laboratory Results - last 24 hr 06/20/19 06/20/19 06/20/19 11:40 16:48 16:48 WBC RBC Hgb Hct MCV MCH MCHC RDW Plt Count MPV Absolute Neuts (auto) Neutrophils % Lymphocytes % Monocytes % Eosinophils % Basophils % Nucleated RBC % ESR PT with INR INR PTT (Actin FS) Sodium 141 Potassium 3.7 Chloride 107 Carbon Dioxide 27 Anion Gap 7 L BUN 11.1 Creatinine 0.8 Est GFR (CKD-EPI)AfAm 110.96 Est GFR (CKD-EPI)NonAf 95.74 Random Glucose 130 H Calcium 9.0 Phosphorus Magnesium Total Bilirubin 1.0 Direct Bilirubin AST 16 ALT 32 Alkaline Phosphatase 91 C-Reactive Protein 0.7 H Total Protein 6.7 Albumin 3.8 Influenza A (Rapid) Negative Influenza B (Rapid) Negative RSV Rapid Negative 06/20/19 06/21/19 06/21/19 16:56 07:25 07:25 WBC 6.5 RBC 4.58 Hgb 14.5 Hct 42.1 MCV 91.9 MCH 31.5 MCHC 34.3 RDW 15.9 Plt Count 215 MPV 7.6 Absolute Neuts (auto) 4.2 Neutrophils % 64.5 Lymphocytes % 17.3 Monocytes % 10.5 H Eosinophils % 7.0 H D Basophils % 0.7 Nucleated RBC % 0 ESR 7 PT with INR 11.80 INR 1.00 PTT (Actin FS) 36.7 H Sodium Potassium Chloride Carbon Dioxide Anion Gap BUN Creatinine Est GFR (CKD-EPI)AfAm Est GFR (CKD-EPI)NonAf Random Glucose Calcium Phosphorus Magnesium Total Bilirubin Direct Bilirubin AST ALT Alkaline Phosphatase C-Reactive Protein Total Protein Albumin Influenza A (Rapid) Influenza B (Rapid) RSV Rapid 06/21/19 07:25 WBC RBC Hgb Hct MCV MCH MCHC RDW Plt Count MPV Absolute Neuts (auto) Neutrophils % Lymphocytes % Monocytes % Eosinophils % Basophils % Nucleated RBC % ESR PT with INR INR PTT (Actin FS) Sodium 141 Potassium 4.0 Chloride 109 H Carbon Dioxide 28 Anion Gap 5 L BUN 7.8 Creatinine 0.7 Est GFR (CKD-EPI)AfAm 117.22 Est GFR (CKD-EPI)NonAf 101.14 Random Glucose 101 Calcium 8.7 Phosphorus 3.4 Magnesium 2.3 Total Bilirubin 1.4 H Direct Bilirubin 0.3 H AST 13 L ALT 25 Alkaline Phosphatase 71 C-Reactive Protein Total Protein 5.9 L Albumin 3.3 L Influenza A (Rapid) Influenza B (Rapid) RSV Rapid Active Medications Generic Name Dose Route Start Last Admin Trade Name Freq PRN Reason Stop Dose Admin Folic Acid 1 mg 06/21/19 10:00 06/21/19 10:40 Folic Acid - PO 1 mg DAILY CAMELIA Administration Heparin Sodium (Porcine) 5,000 unit 06/21/19 01:32 06/21/19 06:11 Heparin - SQ 5,000 unit TID CAMELIA Administration Lactobacillus Acidophilus 1 tab 06/20/19 15:00 06/21/19 10:40 Bacid - PO 1 tab DAILY CAMELIA Administration Multivitamins/Minerals/Vitamin C 1 tab 06/21/19 10:00 06/21/19 10:40 Tab-A-Vit - PO 1 tab DAILY CAMELIA Administration ASSESSMENT/PLAN: Roshan Crump is a 64 year old male with past medical history of Factor V Leiden, renal vein thrombosis, LE DVTs, Peripheral artery disease s/p bilateral BKA, hx of C. diff colitis, admitted for osteomyelitis. Osteomyelitis of R tibia - RLE MRI (06/10/2019)-There is subcutaneous edema at the level of the amputation and stump with enhancement compatible with evolving cellulitis and possible evolving ulceration. There is enhancement within the bone marrow of the remnant aspect of the tibia in its most distal aspect compatible with osteomyelitis. No evidence of abscess collection. No evidence of osteomyelitis of the remnant proximal third of the fibula. - Wound culture (05/20/2019) of right stump: Klebsiella, staph aureus, Staph coag neg, Diptheria/Corynebacterium - hold antibiotics in anticipation of possible bone biopsy - blood cultures pending - ID consulted, recs appreciated, spoken with an stating that is likely chronic osteo and would ideally require bone biopsy - vascular surgery consulted, spoken with and stating will evaluate patient for bone biopsy - left knee x-ray with no soft tissue swelling - ESR 7, CRP 0.7 Acute URI, likely viral - flu swab, RSV negative - CXR with no acute pathology - legionella/strep antigen - continue to monitor, no antibiotics for now - currently improving Hx of Factor V Leiden, PAD, DVT - unclear history, attempting to obtain records from PCP in regard to Factor V Leiden history - not on Eliquis, medication was stopped due to bleeding from stump site and hx of GI bleed, was only on medication for less than 1 year - hematology consulted - hold ASA 81mg daily, pending surgical consult for bone biopsy HLD - continue home atorvastatin FEN - not on any standing fluids - continue to monitor electrolytes and replete as necessary - Sodium restricted diet Prophylaxis - Heparin 5000 units sq tid Disposition - full code - continue to monitor on med surg Visit type - Emergency Visit Emergency Visit: Yes ED Registration Date: 06/20/19 Care time: The patient presented to the Emergency Department on the above date and was hospitalized for further evaluation of their emergent condition. - New Patient This patient is new to me today: Yes Date on this admission: 06/21/19 - Critical Care Critical Care patient: No
--- NOTE | 2019-06-21 16:19 | CONSULT ---
Consultation: CONSULT SERVICE: Hematology/Oncology Resident HISTORY OF PRESENT ILLNESS: 64yo M with h/o Factor V leiden, Renal vein thrombosis, prior LE DVTs, peripheral artery disease who originally presented to ED due to nonhealing wound on RLE BKA stump. Pt was noted to have recent MRI suspicious for osteomyelitis of R tibia. We were asked to medically evaluate this patient due to his suspected Factor V leiden pathology and further AC recommendations. Pt was reportedly on Eliquis in the past, however he was taken off due to unknown reason. Pt thinks he may have had a GI bleed, however he is a poor medical coder and has poor follow-up. Pt has not followed with a physician in many years. His most recent physician was Dr. Munoz [facility] (does not have the number). PMHx: As above PSHx: L BKA (9 yrs prior), R BKA (10/2018) SoHx: Tobacco - Denie Alcohol - 2 cans of beer daily Drugs - Denies Family Hx: Father - "Vascular problem" unknown disorder to patient Uncle - "Vascular problem" Unknown disorder to patient REVIEW OF SYSTEMS: As per HPI PHYSICAL EXAMINATION Vital Signs - 24 hr 06/20/19 06/20/19 06/21/19 17:17 21:04 00:05 Temperature 98.6 F 97.9 F Pulse Rate 64 Pulse Rate [ 69 63 Left Apical] Respiratory 16 18 18 Rate Blood Pressure 103/51 L Blood Pressure 121/59 L 101/53 L [Left Arm] O2 Sat by Pulse 95 98 100 Oximetry (%) 06/21/19 06/21/19 06/21/19 02:00 06:35 09:00 Temperature 98.2 F 98.1 F Pulse Rate 64 72 Pulse Rate [ Left Apical] Respiratory 18 20 20 Rate Blood Pressure 102/57 L 142/54 L Blood Pressure [Left Arm] O2 Sat by Pulse Oximetry (%) 06/21/19 10:00 Temperature 98.1 F Pulse Rate 72 Pulse Rate [ Left Apical] Respiratory 20 Rate Blood Pressure 110/52 L Blood Pressure [Left Arm] O2 Sat by Pulse Oximetry (%) GENERAL: NAD, Awake, alert, and fully oriented but poor historian HEENT: NC/AT, EOMI, NGOC, sclera anicteric, MMM NECK: No JVD, no lymphadenopathy LUNGS: CTA bilaterally. No wheezes, and no crackles. No accessory muscle use. HEART: RRR, normal S1 and S2 without murmur ABDOMEN: Soft, NT/ND, normoactive bowel sounds, no guarding, no masses. No hepatomegaly : Normal testicular exam UPPER EXTREMITIES: 2+ radial pulses, warm, No peripheral edema. LOWER EXTREMITIES: BKA stumps: L with well healed scar and slight erythema. R stump erythema, tenderness to palpation without fluctuance LN: No cervical chain, axillary or inguinal lymphadenopathy noted SKIN: Warm, dry, normal turgor, no rashes or lesions noted. Laboratory Results - last 24 hr 06/20/19 06/20/19 06/20/19 11:40 16:48 16:48 WBC RBC Hgb Hct MCV MCH MCHC RDW Plt Count MPV Absolute Neuts (auto) Neutrophils % Lymphocytes % Monocytes % Eosinophils % Basophils % Nucleated RBC % ESR PT with INR INR PTT (Actin FS) Sodium 141 Potassium 3.7 Chloride 107 Carbon Dioxide 27 Anion Gap 7 L BUN 11.1 Creatinine 0.8 Est GFR (CKD-EPI)AfAm 110.96 Est GFR (CKD-EPI)NonAf 95.74 Random Glucose 130 H Calcium 9.0 Phosphorus Magnesium Total Bilirubin 1.0 Direct Bilirubin AST 16 ALT 32 Alkaline Phosphatase 91 C-Reactive Protein 0.7 H Total Protein 6.7 Albumin 3.8 Influenza A (Rapid) Negative Influenza B (Rapid) Negative RSV Rapid Negative 06/20/19 06/21/19 06/21/19 16:56 07:25 07:25 WBC 6.5 RBC 4.58 Hgb 14.5 Hct 42.1 MCV 91.9 MCH 31.5 MCHC 34.3 RDW 15.9 Plt Count 215 MPV 7.6 Absolute Neuts (auto) 4.2 Neutrophils % 64.5 Lymphocytes % 17.3 Monocytes % 10.5 H Eosinophils % 7.0 H D Basophils % 0.7 Nucleated RBC % 0 ESR 7 PT with INR 11.80 INR 1.00 PTT (Actin FS) 36.7 H Sodium Potassium Chloride Carbon Dioxide Anion Gap BUN Creatinine Est GFR (CKD-EPI)AfAm Est GFR (CKD-EPI)NonAf Random Glucose Calcium Phosphorus Magnesium Total Bilirubin Direct Bilirubin AST ALT Alkaline Phosphatase C-Reactive Protein Total Protein Albumin Influenza A (Rapid) Influenza B (Rapid) RSV Rapid 02/25/20 07:25 WBC RBC Hgb Hct MCV MCH MCHC RDW Plt Count MPV Absolute Neuts (auto) Neutrophils % Lymphocytes % Monocytes % Eosinophils % Basophils % Nucleated RBC % ESR PT with INR INR PTT (Actin FS) Sodium 141 Potassium 4.0 Chloride 109 H Carbon Dioxide 28 Anion Gap 5 L BUN 7.8 Creatinine 0.7 Est GFR (CKD-EPI)AfAm 117.22 Est GFR (CKD-EPI)NonAf 101.14 Random Glucose 101 Calcium 8.7 Phosphorus 3.4 Magnesium 2.3 Total Bilirubin 1.4 H Direct Bilirubin 0.3 H AST 13 L ALT 25 Alkaline Phosphatase 71 C-Reactive Protein Total Protein 5.9 L Albumin 3.3 L Influenza A (Rapid) Influenza B (Rapid) RSV Rapid Active Medications Generic Name Dose Route Start Last Admin Trade Name Freq PRN Reason Stop Dose Admin Atorvastatin Calcium 20 mg 06/21/19 22:00 Lipitor - PO HS CAMELIA Folic Acid 1 mg 06/21/19 10:00 06/21/19 10:40 Folic Acid - PO 1 mg DAILY CAMELIA Administration Heparin Sodium (Porcine) 5,000 unit 06/21/19 01:32 06/21/19 14:00 Heparin - SQ 5,000 unit TID ACMELIA Administration Lactobacillus Acidophilus 1 tab 06/20/19 15:00 06/21/19 10:40 Bacid - PO 1 tab DAILY CAMELIA Administration Multivitamins/Minerals/Vitamin C 1 tab 06/21/19 10:00 06/21/19 10:40 Tab-A-Vit - PO 1 tab DAILY CAMELIA Administration Thiamine HCl 100 mg 06/21/19 22:00 Vitamin B1 - PO BID CAMELIA ASSESSMENT/PLAN: ? Factor V leiden Prior provoked thrombus R osteomyelitis --Will need to obtain any records for patient regarding his AC use --If patient is Factor V leiden + then would need lifelong AC and would need to have discussion with regards to future bleeding due to higher thrombo-embolic risk --If no records found would need to repeat testing to confirm --All this being said, AC currently on hold as of question to intervention for R BKA ulceration per vascular/wound care team Case to be discussed DO Amira Briggs IM PGY-3 Visit type - Emergency Visit Emergency Visit: Yes ED Registration Date: 06/20/19 Care time: The patient presented to the Emergency Department on the above date and was hospitalized for further evaluation of their emergent condition. - New Patient This patient is new to me today: No - Critical Care Critical Care patient: No ATTENDING PHYSICIAN STATEMENT I saw and evaluated the patient. I reviewed the resident's note and discussed the case with the resident. I agree with the resident's findings and plan as documented. SUBJECTIVE: OBJECTIVE: ASSESSMENT AND PLAN:
--- NOTE | 2019-06-21 16:59 | PN ---
Teaching Attending Note Name of Resident: Roshan Kelley ATTENDING PHYSICIAN STATEMENT I saw and evaluated the patient. I reviewed the resident's note and discussed the case with the resident. I agree with the resident's findings and plan as documented. SUBJECTIVE: no fever or chills. No pain. he is a poor historian He reports the diagnosis of clotting disorder long time ago, he last saw a reinsurance accountant about 9 years ago. He reported bleeding from GI tract at some point. He reports L LE clot that lead to the L BKA. He also reports recent infection /ischemia in RLE that led to R BKA ( about 8 months ago). He was started on eliquis after the last ischemic episode, but due to bleeding at the stump his pcp stopped his eliquis. OBJECTIVE: NAD CV: RRR. no MRG Lungs: CTAB Ext: b/l BKA. R stump with a wound with no discharge. no surrounding erythema or edema. no tenderness No edema on thighs ASSESSMENT AND PLAN: 64 y/o with questionable h/o factor V leiden def, PVD, clotting in LE ( venous VS arterial ?) , non compliance, h/o L remote BKA, and recent R BKA, who presented due to an out patient MRI showing tibial OM. 1- OM in R tibia : - stop Abx. - d/dw Dr. Palacio - plan for bone Bx in 48 hr 2- H/o Clotting disorder ( ? V Leiden def) , h/o DVT Vs arterial thrombosis: very poor historian and no previous records available. - We need his records to clarify previous diagnoses - Ideally, and if truly he had DVT/arterial thrombosis x 2, and if he has V leiden def, he needs to be anticoagulated. - recent use of eliquis was stopped due to bleeding from fresh stump, but stump is not fresh any more. - Will ask heme/onc help. - will try to obtain records f orm his PCP and recent hospitalization - hold asa now for bone Bx. 3- H/o HL: cont atorvastatin dispo: HLOC
[2019-06-21] MEDS: THIAMINE HCL 100 MG TABLET (FP) PO SCH (21:08)
[2019-06-21] MEDS: ATORVASTATIN CA 20 MG TABLET (FP) PO SCH (21:08)
[2019-06-22] MEDS: HEPARIN NA (PORCINE) 5,000 UNITS/ML 1ML VIAL SQ SCH ×3 (05:27→21:48)
--- NOTE | 2019-06-22 06:33 | PN ---
Physical Exam: SUBJECTIVE: Patient seen and examined at the bedside. Noted that he was feeling more energetic than yesterday with less weakness. Said he felt stiff in his legs. Denied fever, chills, cp, sob, abd pain, n/v/c/d, numbness, tingling, headaches, dizziness, lightheadedness. Noted that he had most of his hematology workup performed at [facility] but does not regularly see a behavioral health case manager. OBJECTIVE: Vital Signs Period Temp Pulse Resp BP Sys/Lam Pulse Ox Last 24 Hr 97.8 F-98.3 F 72-83 20-22 110-142/52-60 GENERAL: The patient is awake, alert, and fully oriented, in no acute distress. EYES: PERRL, extraocular movements intact, conjunctiva clear. No ptosis. ENT: Oropharynx clear without exudates, moist mucous membranes. Noted poor oral hygiene. LUNGS: Breath sounds equal, clear to auscultation bilaterally, no wheezes, no crackles, no accessory muscle use. HEART: Regular rate and rhythm, S1, S2 without murmur, rub. ABDOMEN: Soft, nontender, nondistended, normoactive bowel sounds, no guarding, no rebound, no masses. EXTREMITIES: Bilateral BKA, noted lesion of the R BKA stump, non-draining, non- bleeding. Chronic Ulcer NEUROLOGICAL: Moving all limbs spontaneously and has 5/5 muscle strength throughout. Sensation intact to gross touch. PSYCH: Pressured speech. Compliant with exam. Normal mood and affect. SKIN: As above on extremities. Dry, warm. Laboratory Results - last 24 hr 06/21/19 06/21/19 06/21/19 07:25 07:25 07:25 WBC 6.5 RBC 4.58 Hgb 14.5 Hct 42.1 MCV 91.9 MCH 31.5 MCHC 34.3 RDW 15.9 Plt Count 215 MPV 7.6 Absolute Neuts (auto) 4.2 Neutrophils % 64.5 Lymphocytes % 17.3 Monocytes % 10.5 H Eosinophils % 7.0 H D Basophils % 0.7 Nucleated RBC % 0 PT with INR 11.80 INR 1.00 PTT (Actin FS) 36.7 H Sodium 141 Potassium 4.0 Chloride 109 H Carbon Dioxide 28 Anion Gap 5 L BUN 7.8 Creatinine 0.7 Est GFR (CKD-EPI)AfAm 117.22 Est GFR (CKD-EPI)NonAf 101.14 Random Glucose 101 Calcium 8.7 Phosphorus 3.4 Magnesium 2.3 Total Bilirubin 1.4 H Direct Bilirubin 0.3 H AST 13 L ALT 25 Alkaline Phosphatase 71 Total Protein 5.9 L Albumin 3.3 L Active Medications Generic Name Dose Route Start Last Admin Trade Name Freq PRN Reason Stop Dose Admin Atorvastatin Calcium 20 mg 06/21/19 22:00 06/21/19 21:08 Lipitor - PO 20 mg HS CAMELIA Administration Folic Acid 1 mg 06/21/19 10:00 06/21/19 10:40 Folic Acid - PO 1 mg DAILY CAMELIA Administration Heparin Sodium (Porcine) 5,000 unit 06/21/19 01:32 06/22/19 05:27 Heparin - SQ 5,000 unit TID CAMELIA Administration Lactobacillus Acidophilus 1 tab 06/20/19 15:00 06/21/19 10:40 Bacid - PO 1 tab DAILY CAMELIA Administration Multivitamins/Minerals/Vitamin C 1 tab 06/21/19 10:00 06/21/19 10:40 Tab-A-Vit - PO 1 tab DAILY CAMELIA Administration Thiamine HCl 100 mg 06/21/19 22:00 06/21/19 21:08 Vitamin B1 - PO 100 mg BID CAMELIA Administration ASSESSMENT/PLAN: Roshan Crump is a 64 year old male with past medical history of Factor V Leiden, renal vein thrombosis, LE DVTs, Peripheral artery disease s/p bilateral BKA, hx of C. diff colitis, admitted for osteomyelitis. Osteomyelitis of R tibia - RLE MRI (06/10/2019)-There is subcutaneous edema at the level of the amputation and stump with enhancement compatible with evolving cellulitis and possible evolving ulceration. There is enhancement within the bone marrow of the remnant aspect of the tibia in its most distal aspect compatible with osteomyelitis. No evidence of abscess collection. No evidence of osteomyelitis of the remnant proximal third of the fibula. - Wound culture (05/20/2019) of right stump: Klebsiella, staph aureus, Staph coag neg, Diptheria/Corynebacterium - hold antibiotics in anticipation of possible bone biopsy - blood cultures negative to date - ID consulted, recs appreciated, spoken with an stating that is likely chronic osteo will restart on antibiotics after bone biopsy - vascular surgery consulted, spoken with and stating will obtain bone biopsy tomorrow - left knee x-ray with no soft tissue swelling - ESR 7, CRP 0.7 Acute URI, likely viral - flu swab, RSV negative - CXR with no acute pathology - legionella/strep antigen - continue to monitor, no antibiotics for now - currently improving Hx of Factor V Leiden, PAD, DVT - unclear history, attempting to obtain records from PCP and [facility] in regard to Factor V Leiden history - not on Eliquis, medication was stopped due to bleeding from stump site and hx of GI bleed, was only on medication for less than 1 year - hematology consulted, will need to obtain records or if records unobtainable then needs repeat testing for Factor V Leiden and likely lifelong AC after discussion of risks and benefits - hold ASA 81mg daily for bone biopsy HLD - continue home atorvastatin FEN - not on any standing fluids - continue to monitor electrolytes and replete as necessary - Sodium restricted diet Prophylaxis - Heparin 5000 units sq tid Disposition - full code - continue to monitor on med surg Visit type - Emergency Visit Emergency Visit: Yes ED Registration Date: 06/20/19 Care time: The patient presented to the Emergency Department on the above date and was hospitalized for further evaluation of their emergent condition. - New Patient This patient is new to me today: Yes Date on this admission: 06/22/19 - Critical Care Critical Care patient: No
[2019-06-22 07:55] LABS: BASO % 0.6 % (0-2.0); EOS % 3.6 % (0-4.5); HEMATOCRIT 42.2 % (35.4-49); HEMOGLOBIN 14.7 GM/dL (11.7-16.9); LYMPH % 16.3 % (8-40); MCH 31.7 pg (25.7-33.7); MCHC 34.7 g/dl (32.0-35.9); MEAN CELL VOLUME 91.3 fl (80-96); MEAN PLT VOLUME 7.9 fl (7.5-11.1); MONO % 8.4 % (3.8-10.2); NEUT % 71.1 % (42.8-82.8); PLATELET COUNT 204 K/MM3 (134-434); RBC 4.63 M/mm3 (4.00-5.60); RDW 16.1 % (11.9-15.9); WHITE BLOOD COUNT 8.1 K/mm3 (4.0-10.0)
[2019-06-22 08:32] LABS: ALBUMIN 3.2 g/dl (3.4-5.0); BILIRUBIN,TOTAL 1.1 mg/dL (0.2-1); BLOOD UREA NITROGEN 6.1 mg/dL (7-18); CREATININE 0.5 mg/dL (0.55-1.3); MAGNESIUM 2.2 mg/dL (1.8-2.4)
--- NOTE | 2019-06-22 09:19 | PN ---
Teaching Attending Note Name of Resident: Roshan Kelley ATTENDING PHYSICIAN STATEMENT I saw and evaluated the patient. I reviewed the resident's note and discussed the case with the resident. I agree with the resident's findings and plan as documented. SUBJECTIVE: Patient is comfortable, lying in bed. Vital Signs Temperature 98.1 F 06/21/19 21:02 Pulse Rate 78 06/21/19 21:02 Respiratory Rate 22 H 06/21/19 21:02 Blood Pressure 113/60 06/21/19 21:02 O2 Sat by Pulse Oximetry (%) 100 06/21/19 00:05 GENERAL: The patient is awake, alert, and fully oriented, in no acute distress. HEAD: Normal with no signs of trauma. EYES: PERRL, extraocular movements intact, sclera anicteric, conjunctiva clear. ENT: Ears normal, oropharynx clear without exudates, moist mucous membranes. NECK: Trachea midline, full range of motion, supple. LUNGS: Breath sounds equal, clear to auscultation bilaterally, no wheezes, no crackles, no accessory muscle use. HEART: Regular rate and rhythm, S1, S2 without murmur, rub or gallop. ABDOMEN: Soft, NT,ND, normoactive bowel sounds, no guarding, no rebound, no hepatosplenomegaly, no masses. EXTREMITIES: 2+ pulses, warm, well-perfused, b/l BKA NEUROLOGICAL: Cranial nerves II through XII grossly intact. Normal speech, gait not observed. PSYCH: Normal mood, normal affect. SKIN: Warm, dry, normal turgor, no rashes or lesions noted CBCD WBC 8.1 K/mm3 (4.0-10.0) 06/22/19 06:35 RBC 4.63 M/mm3 (4.00-5.60) 06/22/19 06:35 Hgb 14.7 GM/dL (11.7-16.9) 06/22/19 06:35 Hct 42.2 % (35.4-49) 06/22/19 06:35 MCV 91.3 fl (80-96) 06/22/19 06:35 MCHC 34.7 g/dl (32.0-35.9) 06/22/19 06:35 RDW 16.1 % (11.9-15.9) H 06/22/19 06:35 Plt Count 204 K/MM3 (134-434) 06/22/19 06:35 MPV 7.9 fl (7.5-11.1) 06/22/19 06:35 CMP Sodium 142 mmol/L (136-145) 06/22/19 06:35 Potassium 4.0 mmol/L (3.5-5.1) 06/22/19 06:35 Chloride 110 mmol/L (98-107) H 06/22/19 06:35 Carbon Dioxide 25 mmol/L (21-32) 06/22/19 06:35 Anion Gap 7 MMOL/L (8-16) L 06/22/19 06:35 BUN 6.1 mg/dL (7-18) L 06/22/19 06:35 Creatinine 0.5 mg/dL (0.55-1.3) L 06/22/19 06:35 Random Glucose 93 mg/dL (74-106) 06/22/19 06:35 Calcium 9.0 mg/dL (8.5-10.1) 06/22/19 06:35 Total Bilirubin 1.1 mg/dL (0.2-1) H 06/22/19 06:35 AST 13 U/L (15-37) L 06/22/19 06:35 ALT 23 U/L (13-61) 06/22/19 06:35 Alkaline Phosphatase 76 U/L (45-117) 06/22/19 06:35 Total Protein 6.0 g/dl (6.4-8.2) L 06/22/19 06:35 Albumin 3.2 g/dl (3.4-5.0) L 06/22/19 06:35 Current Medications Generic Name Dose Route Start Last Admin Trade Name Freq PRN Reason Stop Dose Admin Atorvastatin Calcium 20 mg 06/21/19 22:00 06/21/19 21:08 Lipitor - PO 20 mg HS CAMELIA Administration Folic Acid 1 mg 06/21/19 10:00 06/21/19 10:40 Folic Acid - PO 1 mg DAILY CAMELIA Administration Heparin Sodium (Porcine) 5,000 unit 06/21/19 01:32 06/22/19 05:27 Heparin - SQ 5,000 unit TID CAMELIA Administration Lactobacillus Acidophilus 1 tab 06/20/19 15:00 06/21/19 10:40 Bacid - PO 1 tab DAILY CAMELIA Administration Multivitamins/Minerals/Vitamin C 1 tab 06/21/19 10:00 06/21/19 10:40 Tab-A-Vit - PO 1 tab DAILY CAMELIA Administration Thiamine HCl 100 mg 06/21/19 22:00 06/21/19 21:08 Vitamin B1 - PO 100 mg BID CAMELIA Administration Home Medications Medication Instructions Recorded Aspirin [ASA -] 1 tab PO DAILY 05/20/19 Folic Acid 1 tab PO DAILY 05/20/19 Multivitamin [Multiple Vitamins] 1 tab PO DAILY 05/20/19 Atorvastatin Calcium [Lipitor] 20 mg PO DAILY 06/21/19 Thiamine HCl [Vitamin B1] 100 mg PO BID 06/21/19 Microbiology 06/20/19 11:40 Blood - Peripheral Venous Blood Culture - Preliminary NO GROWTH OBTAINED AFTER 24 HOURS, INCUBATION TO CONTINUE FOR 4 DAYS. Assessment and plan: Assessment and plan: 64 y/o with questionable h/o factor V leiden def, PVD, clotting in LE ( venous VS arterial ?) , non compliance, h/o L remote BKA, and recent R BKA, who presented due to an out patient MRI showing tibial OM. # OM in R tibia : stop Abx. dw Dr. Palacio, plan for bone Bx in 48 hr # H/o Clotting disorder /DVT/ arterial thrombosis: very poor historian and no previous records available. ON lovenox will bridge him with coumadin once picc line # H/o HL: cont atorvastatin #BL BKAs DVT px: lovenox
[2019-06-22] MEDS: MULTIVITAMINS (DAILY MVI) TABLET (FP) PO SCH (11:01)
[2019-06-22] MEDS: THIAMINE HCL 100 MG TABLET (FP) PO SCH ×2 (11:01→21:48)
[2019-06-22] MEDS: FOLIC ACID 1 MG TABLET (FP) PO SCH (11:01)
[2019-06-22] MEDS: LACTOBACILLUS ACIDOPHILUS 1 TABLET PO SCH (11:02)
--- NOTE | 2019-06-22 12:21 | PN ---
Progress Note, Physician History of Present Illness: stable no new issues - Current Medication List Current Medications: Active Medications Atorvastatin Calcium (Lipitor -) 20 mg PO HS [facility] Last Admin: 06/21/19 21:08 Dose: 20 mg Folic Acid (Folic Acid -) 1 mg PO DAILY [facility] Last Admin: 06/22/19 11:01 Dose: 1 mg Heparin Sodium (Porcine) (Heparin -) 5,000 unit SQ TID [facility] Last Admin: 06/22/19 05:27 Dose: 5,000 unit Lactobacillus Acidophilus (Bacid -) 1 tab PO DAILY [facility] Last Admin: 06/22/19 11:02 Dose: 1 tab Multivitamins/Minerals/Vitamin C (Tab-A-Vit -) 1 tab PO DAILY [facility] Last Admin: 06/22/19 11:01 Dose: 1 tab Thiamine HCl (Vitamin B1 -) 100 mg PO BID [facility] Last Admin: 06/22/19 11:01 Dose: 100 mg - Objective Vital Signs: Vital Signs Temperature 98.1 F 06/21/19 21:02 Pulse Rate 78 06/21/19 21:02 Respiratory Rate 22 H 06/21/19 21:02 Blood Pressure 113/60 06/21/19 21:02 O2 Sat by Pulse Oximetry (%) 100 06/21/19 00:05 Constitutional: Yes: No Distress, Calm Cardiovascular: Yes: S1, S2 Respiratory: Yes: Regular, CTA Bilaterally Gastrointestinal: Yes: Normal Bowel Sounds, Soft Musculoskeletal: Yes: Other Extremities: Yes: Other (amputation and osteo of tibia) Wound/Incision: Yes: Draining Neurological: Yes: Alert, Oriented Psychiatric: Yes: Alert, Oriented Labs: CBC, BMP 06/22/19 06:35 06/22/19 06:35 INR, PTT INR 1.00 (0.83-1.09) 06/21/19 07:25 Assessment/Plan 64 y/o with questionable h/o factor V leiden def, PVD, clotting in LE ( venous VS arterial ?) , non compliance, h/o L remote BKA, and recent R BKA, who presented due to an out patient MRI showing tibial OM. 1- OM in R tibia : 2- H/o Clotting disorder ( ? V Leiden def) , h/o DVT Vs arterial thrombosis: very poor historian and no previous records available. 3 hld wound infection plan awaiting for the plan for bone biopsy once that is done will start patient on abx wound care rest as per the team
--- NOTE | 2019-06-22 20:25 | PN ---
Teaching Attending Note Name of Resident: Roshan Lynn ATTENDING PHYSICIAN STATEMENT I saw and evaluated the patient. I reviewed the resident's note and discussed the case with the resident. I agree with the resident's findings and plan as documented. SUBJECTIVE: Patient seen and examined Vague history of 2009 - left -BKA- told of Factor V leyden deficincy 2019 Right BKA Infection stump of right BKA OBJECTIVE:[facility] records Has a history of positive anti-cardiolipin, non-compliance with AC, ulcerative colitis, alcohol abuse/dependence. Patient had a history of thromboembolic events (LLE thrombus s/p L BKA in 2009, positive anti-cardiolipin IGMx2). Was previously on warfarin 5mg qhs but had not been compliant. FH-Father clot' uncle-stroke Last Vital Signs Temp Pulse Resp BP Pulse Ox 97.9 F 71 20 125/61 100 06/22/19 16:30 06/22/19 16:30 06/22/19 16:30 06/22/19 16:30 06/21/19 00:05 HEENT: SANTA, EOM Intact Oropharynx: No thrush, No mucositis,poor dentition Cor: RSR, No murmurs, No gallops Lungs: diminished breath sounds bilaterally Abd: Soft, Normal bowel sounds, No organomegaly ExtL -BKA; R-BKA- stump wound CBC, BMP 06/22/19 06:35 06/22/19 06:35 Current Medications Generic Name Dose Route Start Last Admin Trade Name Freq PRN Reason Stop Dose Admin Atorvastatin Calcium 20 mg 06/21/19 22:00 06/21/19 21:08 Lipitor - PO 20 mg HS CAMELIA Administration Folic Acid 1 mg 06/21/19 10:00 06/22/19 11:01 Folic Acid - PO 1 mg DAILY CAMELIA Administration Heparin Sodium (Porcine) 5,000 unit 06/21/19 01:32 06/22/19 14:14 Heparin - SQ 5,000 unit TID CAMELIA Administration Lactobacillus Acidophilus 1 tab 06/20/19 15:00 06/22/19 11:02 Bacid - PO 1 tab DAILY CAMELIA Administration Multivitamins/Minerals/Vitamin C 1 tab 06/21/19 10:00 06/22/19 11:01 Tab-A-Vit - PO 1 tab DAILY CAMELIA Administration Thiamine HCl 100 mg 06/21/19 22:00 06/22/19 11:01 Vitamin B1 - PO 100 mg BID CAMELIA Administration ASSESSMENT AND PLAN: Impression: Vague history If positive anticardiolipin IgM on 2 occasions 12 weeks apart - this is consistent with APLS ? of Factor V leyden also raised Needs indefinite a/c. In view of APLS positivity coumadn rathe than NOAC is recommended.
[2019-06-22] MEDS: ATORVASTATIN CA 20 MG TABLET (FP) PO SCH (21:49)
[2019-06-23 07:05] LABS: BASO % 0.9 % (0-2.0); EOS % 3.7 % (0-4.5); HEMATOCRIT 41.2 % (35.4-49); HEMOGLOBIN 14.3 GM/dL (11.7-16.9); LYMPH % 27.9 % (8-40); MCH 32.2 pg (25.7-33.7); MCHC 34.8 g/dl (32.0-35.9); MEAN CELL VOLUME 92.5 fl (80-96); MEAN PLT VOLUME 7.8 fl (7.5-11.1); MONO % 9.8 % (3.8-10.2); NEUT % 57.7 % (42.8-82.8); PLATELET COUNT 218 K/MM3 (134-434); RBC 4.45 M/mm3 (4.00-5.60); RDW 15.9 % (11.9-15.9); WHITE BLOOD COUNT 5.6 K/mm3 (4.0-10.0)
[2019-06-23 07:32] LABS: INR 0.97 (0.83-1.09); PROTHROMBIN TIME (PATIENT) 11.4 SEC (9.7-13.0)
[2019-06-23 07:35] LABS: ACTIVATED PTT 32.1 SECONDS (25.2-36.5)
[2019-06-23 08:11] LABS: BLOOD UREA NITROGEN 10.1 mg/dL (7-18); CALCIUM 8.9 mg/dL (8.5-10.1); CREATININE 0.6 mg/dL (0.55-1.3); MAGNESIUM 2.2 mg/dL (1.8-2.4); POTASSIUM 4.3 mmol/L (3.5-5.1)
--- NOTE | 2019-06-23 09:03 | PN ---
Progress Note, Physician History of Present Illness: stable no new issues - Current Medication List Current Medications: Active Medications Atorvastatin Calcium (Lipitor -) 20 mg PO HS [facility] Last Admin: 06/22/19 21:49 Dose: 20 mg Folic Acid (Folic Acid -) 1 mg PO DAILY [facility] Last Admin: 06/22/19 11:01 Dose: 1 mg Heparin Sodium (Porcine) (Heparin -) 5,000 unit SQ TID [facility] Last Admin: 06/22/19 21:48 Dose: 5,000 unit Lactobacillus Acidophilus (Bacid -) 1 tab PO DAILY [facility] Last Admin: 06/22/19 11:02 Dose: 1 tab Multivitamins/Minerals/Vitamin C (Tab-A-Vit -) 1 tab PO DAILY [facility] Last Admin: 06/22/19 11:01 Dose: 1 tab Thiamine HCl (Vitamin B1 -) 100 mg PO BID [facility] Last Admin: 06/22/19 21:48 Dose: 100 mg - Objective Vital Signs: Vital Signs Temperature 97.6 F 06/23/19 06:43 Pulse Rate 58 L 06/23/19 06:43 Respiratory Rate 06/23/19 06:43 Blood Pressure 124/74 06/23/19 06:43 O2 Sat by Pulse Oximetry (%) 100 06/21/19 00:05 Constitutional: Yes: No Distress, Calm Cardiovascular: Yes: S1, S2 Respiratory: Yes: Regular, CTA Bilaterally Gastrointestinal: Yes: Normal Bowel Sounds, Soft Musculoskeletal: Yes: WNL Extremities: Yes: Other Neurological: Yes: Alert, Oriented Psychiatric: Yes: Alert, Oriented Labs: CBC, BMP 06/23/19 06:25 06/23/19 06:25 INR, PTT INR 0.97 (0.83-1.09) 06/23/19 06:25 Assessment/Plan 64 y/o with questionable h/o factor V leiden def, PVD, clotting in LE ( venous VS arterial ?) , non compliance, h/o L remote BKA, and recent R BKA, who presented due to an out patient MRI showing tibial OM. 1- OM in R tibia : 2- H/o Clotting disorder ( ? V Leiden def) , h/o DVT Vs arterial thrombosis: very poor historian and no previous records available. 3 hld wound infection plan awaiting for the plan for bone biopsy once that is done will start patient on abx wound care rest as per the team
--- NOTE | 2019-06-23 09:28 | PN ---
Physical Exam: SUBJECTIVE: Patient seen and examined at the bedside. Stated he has more energy than yesterday. Denies acute complaints of fever, chills, cp, sob, abd pain, n/v /c/d, dizziness, lightheadedness, headaches, drainage from wounds, extremity pain. OBJECTIVE: Vital Signs Period Temp Pulse Resp BP Sys/Lam Pulse Ox Last 24 Hr 97.6 F-98.4 F 58-76 20-20 116-125/60-74 GENERAL: The patient is awake, alert, and fully oriented, in no acute distress. EYES: PERRL, extraocular movements intact, conjunctiva clear. No ptosis. ENT: Oropharynx clear without exudates, moist mucous membranes. Noted poor oral hygiene. LUNGS: Breath sounds equal, clear to auscultation bilaterally, no wheezes, no crackles, no accessory muscle use. HEART: Regular rate and rhythm, S1, S2 without murmur, rub. ABDOMEN: Soft, nontender, nondistended, normoactive bowel sounds, no guarding, no rebound, no masses. EXTREMITIES: Bilateral BKA, noted lesion of the R BKA stump, non-draining, non- bleeding. Chronic Ulcer NEUROLOGICAL: Moving all limbs spontaneously and has 5/5 muscle strength throughout. Sensation intact to gross touch. PSYCH: Pressured speech. Compliant with exam. Normal mood and affect. SKIN: As above on extremities. Dry, warm. Laboratory Results - last 24 hr 06/23/19 06/23/19 06/23/19 06:25 06:25 06:25 WBC 5.6 RBC 4.45 Hgb 14.3 Hct 41.2 MCV 92.5 MCH 32.2 MCHC 34.8 RDW 15.9 Plt Count 218 MPV 7.8 Absolute Neuts (auto) 3.2 Neutrophils % 57.7 Lymphocytes % 27.9 D Monocytes % 9.8 Eosinophils % 3.7 Basophils % 0.9 Nucleated RBC % 0 PT with INR 11.40 INR 0.97 PTT (Actin FS) 32.1 Sodium 142 Potassium 4.3 Chloride 110 H Carbon Dioxide 25 Anion Gap 7 L BUN 10.1 Creatinine 0.6 Est GFR (CKD-EPI)AfAm 124.89 Est GFR (CKD-EPI)NonAf 107.76 Random Glucose 97 Calcium 8.9 Magnesium 2.2 Active Medications Generic Name Dose Route Start Last Admin Trade Name Freq PRN Reason Stop Dose Admin Atorvastatin Calcium 20 mg 06/21/19 22:00 06/22/19 21:49 Lipitor - PO 20 mg HS [facility] Administration Folic Acid 1 mg 06/21/19 10:00 06/22/19 11:01 Folic Acid - PO 1 mg DAILY [facility] Administration Heparin Sodium (Porcine) 5,000 unit 06/21/19 01:32 06/22/19 21:48 Heparin - SQ 5,000 unit TID [facility] Administration Lactobacillus Acidophilus 1 tab 06/20/19 15:00 06/22/19 11:02 Bacid - PO 1 tab DAILY [facility] Administration Multivitamins/Minerals/Vitamin C 1 tab 06/21/19 10:00 06/22/19 11:01 Tab-A-Vit - PO 1 tab DAILY [facility] Administration Thiamine HCl 100 mg 06/21/19 22:00 06/22/19 21:48 Vitamin B1 - PO 100 mg BID [facility] Administration Records obtained from [facility] (Jun 14 2014): Has a history of positive anti-cardiolipin, non-compliance with AC, ulcerative colitis, alcohol abuse/dependence. Was admitted at the time for LOC which was deemed likely in the setting of patient's chronic alcohol use. Patient had a history of thromboembolic events (LLE thrombus s/p L BKA in 2009, positive anti-cardiolipin IGMx2). Was previously on warfarin 5mg qhs but had not been compliant. Was rebridged and restarted on warfarin 5mg qhs. Had consistently low plt levels (100k) and elevated factor VIII. Was advised to follow up with hematology outpatient. ASSESSMENT/PLAN: Roshan Crump is a 64 year old male with past medical history of Factor V Leiden, renal vein thrombosis, LE DVTs, Peripheral artery disease s/p bilateral BKA, hx of C. diff colitis, admitted for osteomyelitis. Osteomyelitis of R tibia - RLE MRI (06/10/2019)-There is subcutaneous edema at the level of the amputation and stump with enhancement compatible with evolving cellulitis and possible evolving ulceration. There is enhancement within the bone marrow of the remnant aspect of the tibia in its most distal aspect compatible with osteomyelitis. No evidence of abscess collection. No evidence of osteomyelitis of the remnant proximal third of the fibula. - Wound culture (05/20/2019) of right stump: Klebsiella, staph aureus, Staph coag neg, Diptheria/Corynebacterium - hold antibiotics in anticipation of possible bone biopsy - blood cultures negative to date - ID consulted, recs appreciated, spoken with an stating that is likely chronic osteo will restart on antibiotics after bone biopsy - vascular surgery consulted, spoken with and stating will obtain bone biopsy - left knee x-ray with no soft tissue swelling - ESR 7, CRP 0.7 Acute URI, likely viral - flu swab, RSV negative - CXR with no acute pathology - legionella/strep antigen - continue to monitor, no antibiotics for now - currently improving Hx of Factor V Leiden, PAD, DVT - unclear history, attempting to obtain records from PCP and [facility] in regard to Factor V Leiden history - not on Eliquis, medication was stopped due to bleeding from stump site and hx of GI bleed, was only on medication for less than 1 year - hematology consulted, obtaining repeat Factor V Leiden testing after inconclusive records from [facility] - hold ASA 81mg daily for bone biopsy HLD - continue home atorvastatin FEN - not on any standing fluids - continue to monitor electrolytes and replete as necessary - Sodium restricted diet Prophylaxis - Heparin 5000 units sq tid Disposition - full code - continue to monitor on med surg Visit type - Emergency Visit Emergency Visit: Yes ED Registration Date: 06/20/19 Care time: The patient presented to the Emergency Department on the above date and was hospitalized for further evaluation of their emergent condition. - New Patient This patient is new to me today: No - Critical Care Critical Care patient: No
[2019-06-23] MEDS: THIAMINE HCL 100 MG TABLET (FP) PO SCH ×2 (11:24→22:24)
[2019-06-23] MEDS: MULTIVITAMINS (DAILY MVI) TABLET (FP) PO SCH (11:24)
[2019-06-23] MEDS: LACTOBACILLUS ACIDOPHILUS 1 TABLET PO SCH (11:24)
[2019-06-23] MEDS: FOLIC ACID 1 MG TABLET (FP) PO SCH (11:24)
--- NOTE | 2019-06-23 16:51 | PN ---
Progress Note (short form) - Note Progress Note: Vascular Surgery Pt brought down to wound care clinic. The right bka stump was prepped and drapped in a sterile surgical manner. 5cc of lidocaine given to stump. Consent was obtained prior to starting procedure. Using bone biopsy kit -- bone biopsy was performed of the right bka stump. Bone sent down to path. US performed showing Osteo of the bka stump with cortical breakdown. ID on case. Piyush Amador dO
--- NOTE | 2019-06-23 19:10 | PN ---
Teaching Attending Note Name of Resident: Roshan Kelley ATTENDING PHYSICIAN STATEMENT I saw and evaluated the patient. I reviewed the resident's note and discussed the case with the resident. I agree with the resident's findings and plan as documented. SUBJECTIVE: Patient is comfortable with no acute distress. Vital Signs Temperature 98.2 F 06/23/19 10:00 Pulse Rate 70 06/23/19 13:52 Respiratory Rate 18 06/23/19 13:52 Blood Pressure 120/72 06/23/19 13:52 O2 Sat by Pulse Oximetry (%) 100 06/21/19 00:05 GENERAL: The patient is awake, alert, and fully oriented, in no acute distress. HEAD: Normal with no signs of trauma. EYES: PERRL, extraocular movements intact, sclera anicteric, conjunctiva clear. ENT: Ears normal, oropharynx clear without exudates, moist mucous membranes. NECK: Trachea midline, full range of motion, supple. LUNGS: Breath sounds equal, clear to auscultation bilaterally, no wheezes, no crackles, no accessory muscle use. HEART: Regular rate and rhythm, S1, S2 positive, with no murmur, rub or gallop. ABDOMEN: Soft, NT,ND, normoactive bowel sounds, no guarding, no rebound, no hepatosplenomegaly, no masses. EXTREMITIES: 2+ pulses, warm, well-perfused, bl bka NEUROLOGICAL: Cranial nerves II through XII grossly intact. Normal speech, gait is stable . PSYCH: Normal mood, normal affect. SKIN: Warm, dry, normal turgor, no rashes or lesions noted CBCD WBC 5.6 K/mm3 (4.0-10.0) 06/23/19 06:25 RBC 4.45 M/mm3 (4.00-5.60) 06/23/19 06:25 Hgb 14.3 GM/dL (11.7-16.9) 06/23/19 06:25 Hct 41.2 % (35.4-49) 06/23/19 06:25 MCV 92.5 fl (80-96) 06/23/19 06:25 MCHC 34.8 g/dl (32.0-35.9) 06/23/19 06:25 RDW 15.9 % (11.9-15.9) 06/23/19 06:25 Plt Count 218 K/MM3 (134-434) 06/23/19 06:25 MPV 7.8 fl (7.5-11.1) 06/23/19 06:25 CMP Sodium 142 mmol/L (136-145) 06/23/19 06:25 Potassium 4.3 mmol/L (3.5-5.1) 06/23/19 06:25 Chloride 110 mmol/L (98-107) H 06/23/19 06:25 Carbon Dioxide 25 mmol/L (21-32) 06/23/19 06:25 Anion Gap 7 MMOL/L (8-16) L 06/23/19 06:25 BUN 10.1 mg/dL (7-18) 06/23/19 06:25 Creatinine 0.6 mg/dL (0.55-1.3) 06/23/19 06:25 Random Glucose 97 mg/dL (74-106) 06/23/19 06:25 Calcium 8.9 mg/dL (8.5-10.1) 06/23/19 06:25 Total Bilirubin 1.1 mg/dL (0.2-1) H 06/22/19 06:35 AST 13 U/L (15-37) L 06/22/19 06:35 ALT 23 U/L (13-61) 06/22/19 06:35 Alkaline Phosphatase 76 U/L (45-117) 06/22/19 06:35 Total Protein 6.0 g/dl (6.4-8.2) L 06/22/19 06:35 Albumin 3.2 g/dl (3.4-5.0) L 06/22/19 06:35 Current Medications Generic Name Dose Route Start Last Admin Trade Name Freq PRN Reason Stop Dose Admin Aspirin 81 mg 06/24/19 10:00 Asa - PO DAILY [facility] Atorvastatin Calcium 20 mg 06/21/19 22:00 06/22/19 21:49 Lipitor - PO 20 mg HS [facility] Administration Folic Acid 1 mg 06/21/19 10:00 06/23/19 11:24 Folic Acid - PO 1 mg DAILY [facility] Administration Heparin Sodium (Porcine) 5,000 unit 06/21/19 01:32 06/22/19 21:48 Heparin - SQ 5,000 unit TID [facility] Administration Lactobacillus Acidophilus 1 tab 06/20/19 15:00 06/23/19 11:24 Bacid - PO 1 tab DAILY [facility] Administration Multivitamins/Minerals/Vitamin C 1 tab 06/21/19 10:00 06/23/19 11:24 Tab-A-Vit - PO 1 tab DAILY [facility] Administration Thiamine HCl 100 mg 06/21/19 22:00 06/23/19 11:24 Vitamin B1 - PO 100 mg BID [facility] Administration Home Medications Medication Instructions Recorded Aspirin [ASA -] 1 tab PO DAILY 05/20/19 Folic Acid 1 tab PO DAILY 05/20/19 Multivitamin [Multiple Vitamins] 1 tab PO DAILY 05/20/19 Atorvastatin Calcium [Lipitor] 20 mg PO DAILY 06/21/19 Thiamine HCl [Vitamin B1] 100 mg PO BID 06/21/19 Microbiology 06/21/19 12:50 Blood - Peripheral Venous Blood Culture - Final NO GROWTH AFTER 5 DAYS INCUBATION 06/23/19 14:14 Leg - Right Lower Gram Stain - Final 06/23/19 14:14 Leg - Right Lower Wound Culture - Preliminary Staphylococcus Latex Coag Pos Lactose Fermenting Neg Bacilli 06/20/19 11:40 Blood - Peripheral Venous Blood Culture - Final NO GROWTH AFTER 5 DAYS INCUBATION 06/21/19 14:00 Urine For Antigen Detection Legionella Antigen - Final 06/21/19 14:00 Urine For Antigen Detection Streptococcus pneumoniae Antigen (M - Final Assessment and plan: 64 y/o with questionable h/o factor V leiden def, PVD, clotting in LE , non compliance, h/o L remote BKA, and recent R BKA, who presented due to an out patient MRI showing tibial OM. # OM in R tibia : off Abx x 48hrs, bone Bx today , follow cx # H/o Clotting disorder /DVT/ arterial thrombosis: very poor historian and no previous records available. will restart lovenox with bridging him with coumadin once picc line , once bx results # H/o HL: cont atorvastatin #BL BKAs DVT px: lovenox
[2019-06-23] MEDS: HEPARIN NA (PORCINE) 5,000 UNITS/ML 1ML VIAL SQ SCH (22:24)
[2019-06-23] MEDS: ATORVASTATIN CA 20 MG TABLET (FP) PO SCH (22:24)
[2019-06-24] MEDS: HEPARIN NA (PORCINE) 5,000 UNITS/ML 1ML VIAL SQ SCH ×2 (06:04→14:19)
--- NOTE | 2019-06-24 09:30 | PN ---
Teaching Attending Note Name of Resident: Roshan Kelley ATTENDING PHYSICIAN STATEMENT I saw and evaluated the patient. I reviewed the resident's note and discussed the case with the resident. I agree with the resident's findings and plan as documented. SUBJECTIVE: Patient is comfortable with no acute distress. OBJECTIVE: Vital Signs Temperature 98.8 F 06/24/19 05:00 Pulse Rate 66 06/24/19 05:00 Respiratory Rate 18 06/24/19 05:00 Blood Pressure 123/58 L 06/24/19 05:00 O2 Sat by Pulse Oximetry (%) 100 06/21/19 00:05 GENERAL: The patient is awake, alert, and fully oriented, in no acute distress. HEAD: Normal with no signs of trauma. EYES: PERRL, extraocular movements intact, sclera anicteric, conjunctiva clear. ENT: Ears normal, oropharynx clear without exudates, moist mucous membranes. NECK: Trachea midline, full range of motion, supple. LUNGS: Breath sounds equal, clear to auscultation bilaterally, no wheezes, no crackles, no accessory muscle use. HEART: Regular rate and rhythm, S1, S2 positive, with no murmur, rub or gallop. ABDOMEN: Soft, NT,ND, normoactive bowel sounds, no guarding, no rebound, no hepatosplenomegaly, no masses. EXTREMITIES: 2+ pulses, warm, well-perfused, bl bka NEUROLOGICAL: Cranial nerves II through XII grossly intact. Normal speech, gait is stable . PSYCH: Normal mood, normal affect. SKIN: Warm, dry, normal turgor, no rashes or lesions noted CBCD WBC 5.6 K/mm3 (4.0-10.0) 06/23/19 06:25 RBC 4.45 M/mm3 (4.00-5.60) 06/23/19 06:25 Hgb 14.3 GM/dL (11.7-16.9) 06/23/19 06:25 Hct 41.2 % (35.4-49) 06/23/19 06:25 MCV 92.5 fl (80-96) 06/23/19 06:25 MCHC 34.8 g/dl (32.0-35.9) 06/23/19 06:25 RDW 15.9 % (11.9-15.9) 06/23/19 06:25 Plt Count 218 K/MM3 (134-434) 06/23/19 06:25 MPV 7.8 fl (7.5-11.1) 06/23/19 06:25 CMP Sodium 142 mmol/L (136-145) 06/23/19 06:25 Potassium 4.3 mmol/L (3.5-5.1) 06/23/19 06:25 Chloride 110 mmol/L (98-107) H 06/23/19 06:25 Carbon Dioxide 25 mmol/L (21-32) 06/23/19 06:25 Anion Gap 7 MMOL/L (8-16) L 06/23/19 06:25 BUN 10.1 mg/dL (7-18) 06/23/19 06:25 Creatinine 0.6 mg/dL (0.55-1.3) 06/23/19 06:25 Random Glucose 97 mg/dL (74-106) 06/23/19 06:25 Calcium 8.9 mg/dL (8.5-10.1) 06/23/19 06:25 Total Bilirubin 1.1 mg/dL (0.2-1) H 06/22/19 06:35 AST 13 U/L (15-37) L 06/22/19 06:35 ALT 23 U/L (13-61) 06/22/19 06:35 Alkaline Phosphatase 76 U/L (45-117) 06/22/19 06:35 Total Protein 6.0 g/dl (6.4-8.2) L 06/22/19 06:35 Albumin 3.2 g/dl (3.4-5.0) L 06/22/19 06:35 Current Medications Generic Name Dose Route Start Last Admin Trade Name Freq PRN Reason Stop Dose Admin Aspirin 81 mg 06/24/19 10:00 Asa - PO DAILY [facility] Atorvastatin Calcium 20 mg 06/21/19 22:00 06/23/19 22:24 Lipitor - PO 20 mg HS [facility] Administration Folic Acid 1 mg 06/21/19 10:00 06/23/19 11:24 Folic Acid - PO 1 mg DAILY [facility] Administration Heparin Sodium (Porcine) 5,000 unit 06/21/19 01:32 06/24/19 06:04 Heparin - SQ 5,000 unit TID [facility] Administration Lactobacillus Acidophilus 1 tab 06/20/19 15:00 06/23/19 11:24 Bacid - PO 1 tab DAILY [facility] Administration Multivitamins/Minerals/Vitamin C 1 tab 06/21/19 10:00 06/23/19 11:24 Tab-A-Vit - PO 1 tab DAILY [facility] Administration Thiamine HCl 100 mg 06/21/19 22:00 06/23/19 22:24 Vitamin B1 - PO 100 mg BID [facility] Administration Home Medications Medication Instructions Recorded Aspirin [ASA -] 1 tab PO DAILY 05/20/19 Folic Acid 1 tab PO DAILY 05/20/19 Multivitamin [Multiple Vitamins] 1 tab PO DAILY 05/20/19 Atorvastatin Calcium [Lipitor] 20 mg PO DAILY 06/21/19 Thiamine HCl [Vitamin B1] 100 mg PO BID 06/21/19 Microbiology 06/21/19 12:50 Blood - Peripheral Venous Blood Culture - Preliminary NO GROWTH OBTAINED AFTER 48 HOURS, INCUBATION TO CONTINUE FOR 3 DAYS. 06/20/19 11:40 Blood - Peripheral Venous Blood Culture - Preliminary NO GROWTH OBTAINED AFTER 72 HOURS, INCUBATION TO CONTINUE FOR 2 DAYS. Assessment and plan: 64 y/o with questionable h/o factor V leiden def, PVD, clotting in LE , non compliance, h/o L remote BKA, and recent R BKA, who presented due to an out patient MRI showing tibial OM. # OM in R tibia : s/p Bx , pending cx # H/o Clotting disorder /DVT/ arterial thrombosis: very poor historian and no previous records available. will restart lovenox with bridging him with coumadin , once bx results needing Picc line. # H/o HL: cont atorvastatin #BL BKAs DVT px: lovenox
[2019-06-24] MEDS ORDERED: PT OWN MED DRAWER 7, Y5N ONE (09:53)
[2019-06-24] MEDS ORDERED: ASPIRIN 81 MG CHEWABLE TABLETS PO SCH (10:00)
[2019-06-24] MEDS: LACTOBACILLUS ACIDOPHILUS 1 TABLET PO SCH (10:00)
[2019-06-24] MEDS: THIAMINE HCL 100 MG TABLET (FP) PO SCH ×2 (10:00→22:01)
[2019-06-24] MEDS: MULTIVITAMINS (DAILY MVI) TABLET (FP) PO SCH (10:00)
[2019-06-24] MEDS: FOLIC ACID 1 MG TABLET (FP) PO SCH (10:00)
--- NOTE | 2019-06-24 11:01 | PN ---
Progress Note, Physician History of Present Illness: stable no new issues biopsy done - Current Medication List Current Medications: Active Medications Aspirin (Asa -) 81 mg PO DAILY [facility] Atorvastatin Calcium (Lipitor -) 20 mg PO HS [facility] Last Admin: 06/23/19 22:24 Dose: 20 mg Folic Acid (Folic Acid -) 1 mg PO DAILY [facility] Last Admin: 06/24/19 10:00 Dose: 1 mg Heparin Sodium (Porcine) (Heparin -) 5,000 unit SQ TID [facility] Last Admin: 06/24/19 06:04 Dose: 5,000 unit Lactobacillus Acidophilus (Bacid -) 1 tab PO DAILY [facility] Last Admin: 06/24/19 10:00 Dose: 1 tab Multivitamins/Minerals/Vitamin C (Tab-A-Vit -) 1 tab PO DAILY [facility] Last Admin: 06/24/19 10:00 Dose: 1 tab Thiamine HCl (Vitamin B1 -) 100 mg PO BID [facility] Last Admin: 06/24/19 10:00 Dose: 100 mg - Objective Vital Signs: Vital Signs Temperature 98.8 F 06/24/19 05:00 Pulse Rate 66 06/24/19 05:00 Respiratory Rate 18 06/24/19 05:00 Blood Pressure 123/58 L 06/24/19 05:00 O2 Sat by Pulse Oximetry (%) 100 06/21/19 00:05 Constitutional: Yes: No Distress, Calm Cardiovascular: Yes: S1, S2 Respiratory: Yes: Regular, CTA Bilaterally Gastrointestinal: Yes: Normal Bowel Sounds, Soft Musculoskeletal: Yes: WNL Extremities: Yes: Other Neurological: Yes: Alert, Oriented Psychiatric: Yes: Alert, Oriented Labs: CBC, BMP 06/23/19 06:25 06/23/19 06:25 INR, PTT INR 0.97 (0.83-1.09) 06/23/19 06:25 Assessment/Plan 64 y/o with questionable h/o factor V leiden def, PVD, clotting in LE ( venous VS arterial ?) , non compliance, h/o L remote BKA, and recent R BKA, who presented due to an out patient MRI showing tibial OM. 1- OM in R tibia : 2- H/o Clotting disorder ( ? V Leiden def) , h/o DVT Vs arterial thrombosis: very poor historian and no previous records available. 3 hld wound infection plan will start patient on ceftriaxone await for biopsy results then will decide further plan rest as per the team
--- NOTE | 2019-06-24 11:15 | PN ---
Physical Exam: SUBJECTIVE: Patient seen and examined at the bedside. Patient stated that he felt well but does have some pain at the leg where the biopsy was done yesterday. Endorses good appetite. Denies fever, chills, cp, sob, abd pain, n/v/ c/d, headaches, dizziness, lightheadedness, visual changes, urinary issues. OBJECTIVE: Vital Signs Period Temp Pulse Resp BP Sys/Lam Pulse Ox Last 24 Hr 97.8 F-98.8 F 60-70 18-18 120-123/58-88 GENERAL: The patient is awake, alert, and fully oriented, in no acute distress. EYES: PERRL, extraocular movements intact, conjunctiva clear. No ptosis. ENT: Oropharynx clear without exudates, moist mucous membranes. Noted poor oral hygiene. LUNGS: Breath sounds equal, clear to auscultation bilaterally, no wheezes, no crackles, no accessory muscle use. HEART: Regular rate and rhythm, S1, S2 without murmur, rub. ABDOMEN: Soft, nontender, nondistended, normoactive bowel sounds, no guarding, no rebound. EXTREMITIES: Bilateral BKA, dressing over biopsy site intact and clean. NEUROLOGICAL: Moving all limbs spontaneously and has 5/5 muscle strength throughout. Sensation intact to gross touch. PSYCH: Pressured speech. Compliant with exam. Normal mood and affect. SKIN: As above on extremities. Dry, warm. Active Medications Generic Name Dose Route Start Last Admin Trade Name Freq PRN Reason Stop Dose Admin Aspirin 81 mg 06/24/19 10:00 Asa - PO DAILY CAMELIA Atorvastatin Calcium 20 mg 06/21/19 22:00 06/23/19 22:24 Lipitor - PO 20 mg HS CAMELIA Administration Folic Acid 1 mg 06/21/19 10:00 06/24/19 10:00 Folic Acid - PO 1 mg DAILY CAMELIA Administration Heparin Sodium (Porcine) 5,000 unit 06/21/19 01:32 06/24/19 06:04 Heparin - SQ 5,000 unit TID CAMELIA Administration Ceftriaxone Sodium 2 gm/ 100 mls @ 200 mls/hr 06/24/19 11:15 Dextrose IVPB DAILY CAMELIA Protocol Lactobacillus Acidophilus 1 tab 06/20/19 15:00 06/24/19 10:00 Bacid - PO 1 tab DAILY CAMELIA Administration Multivitamins/Minerals/Vitamin C 1 tab 06/21/19 10:00 06/24/19 10:00 Tab-A-Vit - PO 1 tab DAILY CAMELIA Administration Thiamine HCl 100 mg 06/21/19 22:00 06/24/19 10:00 Vitamin B1 - PO 100 mg BID CAMELIA Administration Records obtained from [facility] (Jun 14 2014): Has a history of positive anti-cardiolipin, non-compliance with AC, ulcerative colitis, alcohol abuse/dependence. Was admitted at the time for LOC which was deemed likely in the setting of patient's chronic alcohol use. Patient had a history of thromboembolic events (LLE thrombus s/p L BKA in 2009, positive anti-cardiolipin IGMx2). Was previously on warfarin 5mg qhs but had not been compliant. Was rebridged and restarted on warfarin 5mg qhs. Had consistently low plt levels (100k) and elevated factor VIII. Was advised to follow up with hematology outpatient. ASSESSMENT/PLAN: Roshan Crump is a 64 year old male with past medical history of Factor V Leiden, renal vein thrombosis, LE DVTs, Peripheral artery disease s/p bilateral BKA, hx of C. diff colitis, admitted for osteomyelitis. Osteomyelitis of R tibia - RLE MRI (06/10/2019)-There is subcutaneous edema at the level of the amputation and stump with enhancement compatible with evolving cellulitis and possible evolving ulceration. There is enhancement within the bone marrow of the remnant aspect of the tibia in its most distal aspect compatible with osteomyelitis. No evidence of abscess collection. No evidence of osteomyelitis of the remnant proximal third of the fibula. - Wound culture (05/20/2019) of right stump: Klebsiella, staph aureus, Staph coag neg, Diptheria/Corynebacterium - blood cultures negative to date - ID consulted, recs appreciated, started ceftriaxone and will tailor antibiotics to biopsy results - vascular surgery consulted, obtained bone biopsy - ESR 7, CRP 0.7 Acute URI, likely viral - flu swab, RSV negative - CXR with no acute pathology - legionella/strep antigen negative - currently improving Hx of Factor V Leiden, PAD, DVT - unclear history, records as above noting history of anticardiolipin antibodies consistent with antiphospholipid syndrome - not on Eliquis, medication was stopped due to bleeding from stump site and hx of GI bleed, was only on medication for less than 1 year, was also previously on coumadin however patient stopped because he no longer wanted frequent INR checks - after discussion with hematology, the ideal AC for antiphospholipid syndrome would be coumadin - options were discussed with the patient regarding the benefits of warfarin including optimal AC for antiphospholipid syndrome, reversibility, and less risk compared with NOACs for GI bleed as patient has a history of GI bleed. Patient understands that he will require frequent monitoring of INR with coumadin. - will start coumadin 5mg and check INR - repeat Factor V Leiden testing after inconclusive records from [facility] - restart aspirin 81mg tomorrow HLD - continue home atorvastatin FEN - not on any standing fluids - continue to monitor electrolytes and replete as necessary - Sodium restricted diet Prophylaxis - Heparin 5000 units sq tid Disposition - full code - continue to monitor on med surg Visit type - Emergency Visit Emergency Visit: Yes ED Registration Date: 06/20/19 Care time: The patient presented to the Emergency Department on the above date and was hospitalized for further evaluation of their emergent condition. - New Patient This patient is new to me today: No - Critical Care Critical Care patient: No
[2019-06-24] MEDS ORDERED: DEXTROSE 5%-WATER 100 ML IVPB ONE (11:30)
[2019-06-24] MEDS: CEFTRIAXONE 2 GM in DEXTROSE 5%-WATER 100 ML IVPB SCH (11:37)
[2019-06-24] MEDS: ENOXAPARIN NA (PORCINE) 60 MG/0.6 ML DISP.SYRIN SQ SCH (17:48)
[2019-06-24] MEDS ORDERED: ENOXAPARIN NA (PORCINE) 40 MG/0.4 ML DISP.SYRIN SQ SCH (18:00)
[2019-06-24] MEDS ORDERED: WARFARIN NA 5 MG TABLET (UD) PO SCH (18:00)
[2019-06-24] MEDS: ATORVASTATIN CA 20 MG TABLET (FP) PO SCH (22:01)
[2019-06-25] MEDS: ENOXAPARIN NA (PORCINE) 60 MG/0.6 ML DISP.SYRIN SQ SCH ×2 (06:45→19:33)
[2019-06-25 08:36] LABS: INR 0.98 (0.83-1.09); PROTHROMBIN TIME (PATIENT) 11.6 SEC (9.7-13.0)
[2019-06-25 08:39] LABS: ACTIVATED PTT 40.9 SECONDS (25.2-36.5)
[2019-06-25] MEDS ORDERED: DEXTROSE 5%-WATER 100 ML IVPB ONE (10:21)
[2019-06-25] MEDS: CEFTRIAXONE 2 GM in DEXTROSE 5%-WATER 100 ML IVPB SCH (10:29)
[2019-06-25] MEDS: THIAMINE HCL 100 MG TABLET (FP) PO SCH ×2 (10:30→21:45)
[2019-06-25] MEDS: MULTIVITAMINS (DAILY MVI) TABLET (FP) PO SCH (10:30)
[2019-06-25] MEDS: LACTOBACILLUS ACIDOPHILUS 1 TABLET PO SCH (10:30)
[2019-06-25] MEDS: FOLIC ACID 1 MG TABLET (FP) PO SCH (10:30)
--- NOTE | 2019-06-25 15:28 | PN ---
Progress Note, Physician History of Present Illness: Pt is alert, afebrile, tolerating antibiotics. Has no specific complaints. Occasional loose BMs but no abd discomfort. - Current Medication List Current Medications: Active Medications Atorvastatin Calcium (Lipitor -) 20 mg PO HS [facility] Last Admin: 06/24/19 22:01 Dose: 20 mg Enoxaparin Sodium (Lovenox -) 50 mg SQ Q12H [facility] Last Admin: 06/25/19 06:45 Dose: 50 mg Folic Acid (Folic Acid -) 1 mg PO DAILY [facility] Last Admin: 06/25/19 10:30 Dose: 1 mg Ceftriaxone Sodium 2 gm/ (Dextrose) 100 mls @ 200 mls/hr IVPB DAILY [facility]; Protocol Last Admin: 06/25/19 10:29 Dose: 200 mls/hr Lactobacillus Acidophilus (Bacid -) 1 tab PO DAILY [facility] Last Admin: 06/25/19 10:30 Dose: 1 tab Multivitamins/Minerals/Vitamin C (Tab-A-Vit -) 1 tab PO DAILY [facility] Last Admin: 06/25/19 10:30 Dose: 1 tab Thiamine HCl (Vitamin B1 -) 100 mg PO BID [facility] Last Admin: 06/25/19 10:30 Dose: 100 mg - Objective Vital Signs: Vital Signs Temperature 97.3 F L 06/25/19 15:00 Pulse Rate 88 06/25/19 15:00 Respiratory Rate 20 06/25/19 15:00 Blood Pressure 134/65 06/25/19 15:00 O2 Sat by Pulse Oximetry (%) 98 06/24/19 21:00 Constitutional: Yes: No Distress, Calm Cardiovascular: Yes: Regular Rate and Rhythm Respiratory: Yes: Regular Gastrointestinal: Yes: Normal Bowel Sounds, Soft Genitourinary: Yes: WNL Extremities: Yes: Amputation (b/l BKA) Edema: No Integumentary: Yes: WNL Wound/Incision: Yes: Dressing Dry and Intact (Rt BKA , wound site dressed Lt BKA healed) Neurological: Yes: Alert Labs: CBC, BMP 06/23/19 06:25 06/23/19 06:25 INR, PTT INR 0.98 (0.83-1.09) 06/25/19 07:20 Microbiology 06/21/19 12:50 Blood - Peripheral Venous Blood Culture - Preliminary NO GROWTH OBTAINED AFTER 96 HOURS, INCUBATION TO CONTINUE FOR 1 DAYS. 06/23/19 14:14 Leg - Right Lower Gram Stain - Final 06/23/19 14:14 Leg - Right Lower Wound Culture - Preliminary Staphylococcus Latex Coag Pos Lactose Fermenting Neg Bacilli 06/20/19 11:40 Blood - Peripheral Venous Blood Culture - Final NO GROWTH AFTER 5 DAYS INCUBATION 06/21/19 14:00 Urine For Antigen Detection Legionella Antigen - Final 06/21/19 14:00 Urine For Antigen Detection Streptococcus pneumoniae Antigen (M - Final Problem List - Problems (1) Factor V Leiden Code(s): D68.51 - ACTIVATED PROTEIN C RESISTANCE (2) History of below-knee amputation of both lower extremities Code(s): Z89.511 - ACQUIRED ABSENCE OF RIGHT LEG BELOW KNEE; Z89.512 - ACQUIRED ABSENCE OF LEFT LEG BELOW KNEE (3) Multiple episodes of deep venous thrombosis Code(s): I82.509 - CHRONIC EMBOLISM AND THOMBOS UNSP DEEP VN UNSP LOW EXTRM (4) Osteomyelitis of right leg Code(s): M86.9 - OSTEOMYELITIS, UNSPECIFIED (5) PAD (peripheral artery disease) Code(s): I73.9 - PERIPHERAL VASCULAR DISEASE, UNSPECIFIED Assessment/Plan 64 y/o with questionable h/o factor V leiden def, PVD, clotting in LE ( venous VS arterial ?) , non compliance, h/o L remote BKA, and recent R BKA, who presented due to an out patient MRI showing tibial OM. Rt tibial OM/ wound infection s/p Rt BKA ? Factor V Leiden deficiency Hx of DVTs PVD Hx of Lt BKA - Pt s/p biopsy, follow up results - wound culture results noted, f/u final isolates - continue Ceftriaxone for now - continue wound care
--- NOTE | 2019-06-25 21:17 | PN ---
Progress Note (short form) - Note Progress Note: Patient is lying in bed with no acute distress. Vital Signs Temperature 97.7 F 06/25/19 17:49 Pulse Rate 76 06/25/19 17:49 Respiratory Rate 18 06/25/19 17:49 Blood Pressure 120/56 L 06/25/19 17:49 O2 Sat by Pulse Oximetry (%) 98 06/25/19 09:00 GENERAL: The patient is awake, alert, and fully oriented, in no acute distress. HEAD: Normal with no signs of trauma. EYES: PERRL, extraocular movements intact, sclera anicteric, conjunctiva clear. ENT: Ears normal, oropharynx clear without exudates, moist mucous membranes. NECK: Trachea midline, full range of motion, supple. LUNGS: Breath sounds equal, clear to auscultation bilaterally, no wheezes, no crackles, no accessory muscle use. HEART: Regular rate and rhythm, S1, S2 without murmur, rub or gallop. ABDOMEN: Soft, nontender, nondistended, normoactive bowel sounds, no guarding, no rebound, no hepatosplenomegaly, no masses. EXTREMITIES: 2+ pulses, warm, bl BKA s NEUROLOGICAL: Cranial nerves II through XII grossly intact. Normal speech, gait not observed. PSYCH: Normal mood, normal affect. SKIN: Warm, dry, normal turgor, no rashes or lesions noted CBCD WBC 5.6 K/mm3 (4.0-10.0) 06/23/19 06:25 RBC 4.45 M/mm3 (4.00-5.60) 06/23/19 06:25 Hgb 14.3 GM/dL (11.7-16.9) 06/23/19 06:25 Hct 41.2 % (35.4-49) 06/23/19 06:25 MCV 92.5 fl (80-96) 06/23/19 06:25 MCHC 34.8 g/dl (32.0-35.9) 06/23/19 06:25 RDW 15.9 % (11.9-15.9) 06/23/19 06:25 Plt Count 218 K/MM3 (134-434) 06/23/19 06:25 MPV 7.8 fl (7.5-11.1) 02/27/20 06:25 CMP Sodium 142 mmol/L (136-145) 06/23/19 06:25 Potassium 4.3 mmol/L (3.5-5.1) 06/23/19 06:25 Chloride 110 mmol/L (98-107) H 06/23/19 06:25 Carbon Dioxide 25 mmol/L (21-32) 06/23/19 06:25 Anion Gap 7 MMOL/L (8-16) L 06/23/19 06:25 BUN 10.1 mg/dL (7-18) 06/23/19 06:25 Creatinine 0.6 mg/dL (0.55-1.3) 06/23/19 06:25 Random Glucose 97 mg/dL (74-106) 06/23/19 06:25 Calcium 8.9 mg/dL (8.5-10.1) 06/23/19 06:25 Total Bilirubin 1.1 mg/dL (0.2-1) H 06/22/19 06:35 AST 13 U/L (15-37) L 06/22/19 06:35 ALT 23 U/L (13-61) 06/22/19 06:35 Alkaline Phosphatase 76 U/L (45-117) 06/22/19 06:35 Total Protein 6.0 g/dl (6.4-8.2) L 06/22/19 06:35 Albumin 3.2 g/dl (3.4-5.0) L 06/22/19 06:35 Home Medications Medication Instructions Recorded Aspirin [ASA -] 1 tab PO DAILY 05/20/19 Folic Acid 1 tab PO DAILY 05/20/19 Multivitamin [Multiple Vitamins] 1 tab PO DAILY 05/20/19 Atorvastatin Calcium [Lipitor] 20 mg PO DAILY 06/21/19 Thiamine HCl [Vitamin B1] 100 mg PO BID 06/21/19 Current Medications Generic Name Dose Route Start Last Admin Trade Name Freq PRN Reason Stop Dose Admin Atorvastatin Calcium 20 mg 06/21/19 22:00 06/24/19 22:01 Lipitor - PO 20 mg HS CAMELIA Administration Enoxaparin Sodium 50 mg 06/24/19 18:00 06/25/19 19:33 Lovenox - SQ 50 mg Q12H CAMELIA Administration Folic Acid 1 mg 06/21/19 10:00 06/25/19 10:30 Folic Acid - PO 1 mg DAILY CAMELIA Administration Ceftriaxone Sodium 2 gm/ 100 mls @ 200 mls/hr 06/24/19 11:15 06/25/19 10:29 Dextrose IVPB 200 mls/hr DAILY CAMELIA Administration Protocol Lactobacillus Acidophilus 1 tab 06/20/19 15:00 06/25/19 10:30 Bacid - PO 1 tab DAILY CAMELIA Administration Multivitamins/Minerals/Vitamin C 1 tab 06/21/19 10:00 06/25/19 10:30 Tab-A-Vit - PO 1 tab DAILY CAMELIA Administration Thiamine HCl 100 mg 06/21/19 22:00 06/25/19 10:30 Vitamin B1 - PO 100 mg BID CAMELIA Administration Microbiology 06/21/19 12:50 Blood - Peripheral Venous Blood Culture - Preliminary NO GROWTH OBTAINED AFTER 96 HOURS, INCUBATION TO CONTINUE FOR 1 DAYS. 06/23/19 14:14 Leg - Right Lower Gram Stain - Final 06/23/19 14:14 Leg - Right Lower Wound Culture - Preliminary Staphylococcus Latex Coag Pos Lactose Fermenting Neg Bacilli 06/20/19 11:40 Blood - Peripheral Venous Blood Culture - Final NO GROWTH AFTER 5 DAYS INCUBATION 06/21/19 14:00 Urine For Antigen Detection Legionella Antigen - Final 06/21/19 14:00 Urine For Antigen Detection Streptococcus pneumoniae Antigen (M - Final FOR 4 DAYS. Assessment and plan: 64 y/o with questionable h/o factor V leiden def, PVD, clotting in LE ( venous VS arterial ?) , non compliance, h/o L remote BKA, and recent R BKA, who presented due to an out patient MRI showing tibial OM. # OM in R tibia : off Abx. for now, will get a picc line on thursday and continue ABx outpatient abx as per ID. on IV Rocephin continue # H/o Clotting disorder /DVT/ arterial thrombosis: very poor historian and no previous records available. ON lovenox will bridge him with coumadin once picc line # H/o HL: cont atorvastatin #BL BKAs DVT px: lovenox Visit type - Emergency Visit Emergency Visit: Yes ED Registration Date: 06/20/19 Care time: The patient presented to the Emergency Department on the above date and was hospitalized for further evaluation of their emergent condition. - New Patient This patient is new to me today: No - Critical Care Critical Care patient: No - Discharge Referral Referred to [facility] No
[2019-06-25] MEDS: ATORVASTATIN CA 20 MG TABLET (FP) PO SCH (21:45)
[2019-06-26] MEDS: ENOXAPARIN NA (PORCINE) 60 MG/0.6 ML DISP.SYRIN SQ SCH ×2 (06:11→17:17)
[2019-06-26] MEDS ORDERED: DEXTROSE 5%-WATER 100 ML IVPB ONE (08:50)
[2019-06-26] MEDS: FOLIC ACID 1 MG TABLET (FP) PO SCH (09:47)
[2019-06-26] MEDS: CEFTRIAXONE 2 GM in DEXTROSE 5%-WATER 100 ML IVPB SCH (09:47)
[2019-06-26] MEDS: MULTIVITAMINS (DAILY MVI) TABLET (FP) PO SCH (09:47)
[2019-06-26] MEDS: THIAMINE HCL 100 MG TABLET (FP) PO SCH ×2 (09:47→21:31)
[2019-06-26] MEDS: LACTOBACILLUS ACIDOPHILUS 1 TABLET PO SCH (09:47)
--- NOTE | 2019-06-26 14:44 | PN ---
Physical Exam: SUBJECTIVE: Patient seen and examined. He reports feeling more sleepy than usual , but he has no other complaints. He denies chest pain, shortness of breath, fever, or chills. He reports some pain in left leg but is controllable. OBJECTIVE: Vital Signs Period Temp Pulse Resp BP Sys/Lam Pulse Ox Last 24 Hr 97.3 F-97.8 F 70-88 18-20 112-134/51-66 97 GENERAL: The patient is awake, alert, and fully oriented, in no acute distress. HEAD: Normal with no signs of trauma. EYES: PERRL, extraocular movements intact, conjunctiva clear. ENT: Ears normal, nares patent, moist mucous membranes. NECK: Trachea midline, full range of motion, supple. LUNGS: Breath sounds equal, clear to auscultation anteriorly. HEART: Regular rate and rhythm, no murmur. ABDOMEN: Soft, nontender, nondistended, normoactive bowel sounds. EXTREMITIES: Warm, well-perfused, b/l BKA, bandaged, no erythema noted NEUROLOGICAL: Cranial nerves II through XII grossly intact. Normal speech, gait not observed. PSYCH: Normal mood, normal affect. SKIN: Warm, dry, normal turgor, no rashes or lesions noted Active Medications Generic Name Dose Route Start Last Admin Trade Name Freq PRN Reason Stop Dose Admin Atorvastatin Calcium 20 mg 06/21/19 22:00 06/25/19 21:45 Lipitor - PO 20 mg HS CAMELIA Administration Enoxaparin Sodium 50 mg 06/24/19 18:00 06/26/19 06:11 Lovenox - SQ 50 mg Q12H CAMELIA Administration Folic Acid 1 mg 06/21/19 10:00 06/26/19 09:47 Folic Acid - PO 1 mg DAILY CAMELIA Administration Ceftriaxone Sodium 2 gm/ 100 mls @ 200 mls/hr 06/24/19 11:15 06/26/19 09:47 Dextrose IVPB 200 mls/hr DAILY CAMELIA Administration Protocol Lactobacillus Acidophilus 1 tab 06/20/19 15:00 06/26/19 09:47 Bacid - PO 1 tab DAILY CAMELIA Administration Multivitamins/Minerals/Vitamin C 1 tab 06/21/19 10:00 06/26/19 09:47 Tab-A-Vit - PO 1 tab DAILY CAMELIA Administration Thiamine HCl 100 mg 06/21/19 22:00 06/26/19 09:47 Vitamin B1 - PO 100 mg BID CAMELIA Administration ASSESSMENT/PLAN: Pt is a 64 y/o male with hx of clotting disorder (possibly Factor V Leiden), renal vein thrombosis, LE DVTs, PAD s/p bilateral BKA, hx of C. diff colitis, admitted for osteomyelitis of right tibia. #right tibial osteomyelitis -blood cultures negative -waiting for biopsy results -wound culture shows insignificant amount of organisms -ceftriaxone 2g daily day 4 -ID following -previously given Vanc and Zosyn -anticipate PICC placement #clotting disorder hx -indeterminate records/poor historian -Lovenox 50mg Q12H -plan bridge to coumadin #HLD -continue home atorvastatin FEN PO fluids monitor labs sodium restricted diet DVT Ppx Lovenox dispo med/surg continue abx Visit type - Emergency Visit Emergency Visit: Yes ED Registration Date: 06/20/19 Care time: The patient presented to the Emergency Department on the above date and was hospitalized for further evaluation of their emergent condition. - New Patient This patient is new to me today: Yes Date on this admission: 06/26/19 - Critical Care Critical Care patient: No - Discharge Referral Referred to [facility] No ATTENDING PHYSICIAN STATEMENT I saw and evaluated the patient. I reviewed the resident's note and discussed the case with the resident. I agree with the resident's findings and plan as documented. SUBJECTIVE: OBJECTIVE: ASSESSMENT AND PLAN:
--- NOTE | 2019-06-26 15:38 | PN ---
Progress Note, Physician History of Present Illness: Pt states he feels well. Denies pain, remains afebrile, tolerating antibiotics. - Current Medication List Current Medications: Active Medications Atorvastatin Calcium (Lipitor -) 20 mg PO HS [facility] Last Admin: 06/25/19 21:45 Dose: 20 mg Enoxaparin Sodium (Lovenox -) 50 mg SQ Q12H [facility] Last Admin: 06/26/19 06:11 Dose: 50 mg Folic Acid (Folic Acid -) 1 mg PO DAILY [facility] Last Admin: 06/26/19 09:47 Dose: 1 mg Ceftriaxone Sodium 2 gm/ (Dextrose) 100 mls @ 200 mls/hr IVPB DAILY [facility]; Protocol Last Admin: 06/26/19 09:47 Dose: 200 mls/hr Lactobacillus Acidophilus (Bacid -) 1 tab PO DAILY [facility] Last Admin: 06/26/19 09:47 Dose: 1 tab Multivitamins/Minerals/Vitamin C (Tab-A-Vit -) 1 tab PO DAILY [facility] Last Admin: 06/26/19 09:47 Dose: 1 tab Thiamine HCl (Vitamin B1 -) 100 mg PO BID [facility] Last Admin: 06/26/19 09:47 Dose: 100 mg - Objective Vital Signs: Vital Signs Temperature 97.7 F 06/26/19 14:47 Pulse Rate 91 H 06/26/19 14:47 Respiratory Rate 18 06/26/19 14:47 Blood Pressure 103/53 L 06/26/19 14:47 O2 Sat by Pulse Oximetry (%) 99 06/26/19 09:00 Constitutional: Yes: No Distress, Calm Cardiovascular: Yes: Regular Rate and Rhythm Respiratory: Yes: Regular Gastrointestinal: Yes: Normal Bowel Sounds, Soft Genitourinary: Yes: WNL Extremities: Yes: Amputation (Lt BKA healed, Rt BKA with dressing intact/no edema or tenderness) Integumentary: Yes: WNL Wound/Incision: Yes: Dressing Dry and Intact (Rt BKA) Neurological: Yes: Alert, Oriented Labs: CBC, BMP 06/23/19 06:25 06/23/19 06:25 INR, PTT INR 0.98 (0.83-1.09) 06/25/19 07:20 Microbiology 06/21/19 12:50 Blood - Peripheral Venous Blood Culture - Final NO GROWTH AFTER 5 DAYS INCUBATION 06/23/19 14:14 Leg - Right Lower Gram Stain - Final 06/23/19 14:14 Leg - Right Lower Wound Culture - Preliminary Staphylococcus Latex Coag Pos Lactose Fermenting Neg Bacilli 06/20/19 11:40 Blood - Peripheral Venous Blood Culture - Final NO GROWTH AFTER 5 DAYS INCUBATION 06/21/19 14:00 Urine For Antigen Detection Legionella Antigen - Final 06/21/19 14:00 Urine For Antigen Detection Streptococcus pneumoniae Antigen (M - Final Problem List - Problems (1) Factor V Leiden Code(s): D68.51 - ACTIVATED PROTEIN C RESISTANCE (2) History of below-knee amputation of both lower extremities Code(s): Z89.511 - ACQUIRED ABSENCE OF RIGHT LEG BELOW KNEE; Z89.512 - ACQUIRED ABSENCE OF LEFT LEG BELOW KNEE (3) Multiple episodes of deep venous thrombosis Code(s): I82.509 - CHRONIC EMBOLISM AND THOMBOS UNSP DEEP VN UNSP LOW EXTRM (4) Osteomyelitis of right leg Code(s): M86.9 - OSTEOMYELITIS, UNSPECIFIED (5) PAD (peripheral artery disease) Code(s): I73.9 - PERIPHERAL VASCULAR DISEASE, UNSPECIFIED Assessment/Plan 64 y/o with questionable h/o factor V leiden def, PVD, clotting in LE ( venous VS arterial ?) , non compliance, h/o L remote BKA, and recent R BKA, who presented due to an out patient MRI showing tibial OM. Rt tibial OM/ wound infection s/p Rt BKA ? Factor V Leiden deficiency Hx of DVTs PVD Hx of Lt BKA - Pt s/p biopsy, follow up results - f/u final wound culture isolates - continue Ceftriaxone for now, adjust if necessary based on wound culture results - continue wound care Pt currently stable
--- NOTE | 2019-06-26 19:44 | PN ---
Teaching Attending Note Name of Resident: Rochelle Duenas ATTENDING PHYSICIAN STATEMENT I saw and evaluated the patient. I reviewed the resident's note and discussed the case with the resident. I agree with the resident's findings and plan as documented. SUBJECTIVE: Patient is comfortable with no acute distress Vital Signs Temperature 97.7 F 06/26/19 14:47 Pulse Rate 91 H 06/26/19 14:47 Respiratory Rate 18 06/26/19 14:47 Blood Pressure 103/53 L 06/26/19 14:47 O2 Sat by Pulse Oximetry (%) 99 06/26/19 09:00 GENERAL: The patient is awake, alert, and fully oriented, in no acute distress. HEAD: Normal with no signs of trauma. EYES: PERRL, extraocular movements intact, sclera anicteric, conjunctiva clear. ENT: Ears normal, oropharynx clear without exudates, moist mucous membranes. NECK: Trachea midline, full range of motion, supple. LUNGS: Breath sounds equal, clear to auscultation bilaterally, no wheezes, no crackles, no accessory muscle use. HEART: Regular rate and rhythm, S1, S2 without murmur, rub or gallop. ABDOMEN: Soft, Nt,ND, normoactive bowel sounds, no guarding, no rebound, no hepatosplenomegaly, no masses. EXTREMITIES: 2+ pulses, warm, bl BKA s NEUROLOGICAL: Cranial nerves II through XII grossly intact. Normal speech, gait not observed. PSYCH: Normal mood, normal affect. SKIN: Warm, dry, normal turgor, no rashes or lesions noted CBCD WBC 5.6 K/mm3 (4.0-10.0) 06/23/19 06:25 RBC 4.45 M/mm3 (4.00-5.60) 06/23/19 06:25 Hgb 14.3 GM/dL (11.7-16.9) 06/23/19 06:25 Hct 41.2 % (35.4-49) 06/23/19 06:25 MCV 92.5 fl (80-96) 06/23/19 06:25 MCHC 34.8 g/dl (32.0-35.9) 06/23/19 06:25 RDW 15.9 % (11.9-15.9) 06/23/19 06:25 Plt Count 218 K/MM3 (134-434) 06/23/19 06:25 MPV 7.8 fl (7.5-11.1) 06/23/19 06:25 CMP Sodium 142 mmol/L (136-145) 06/23/19 06:25 Potassium 4.3 mmol/L (3.5-5.1) 06/23/19 06:25 Chloride 110 mmol/L (98-107) H 06/23/19 06:25 Carbon Dioxide 25 mmol/L (21-32) 06/23/19 06:25 Anion Gap 7 MMOL/L (8-16) L 06/23/19 06:25 BUN 10.1 mg/dL (7-18) 06/23/19 06:25 Creatinine 0.6 mg/dL (0.55-1.3) 06/23/19 06:25 Random Glucose 97 mg/dL (74-106) 06/23/19 06:25 Calcium 8.9 mg/dL (8.5-10.1) 06/23/19 06:25 Total Bilirubin 1.1 mg/dL (0.2-1) H 06/22/19 06:35 AST 13 U/L (15-37) L 06/22/19 06:35 ALT 23 U/L (13-61) 06/22/19 06:35 Alkaline Phosphatase 76 U/L (45-117) 06/22/19 06:35 Total Protein 6.0 g/dl (6.4-8.2) L 06/22/19 06:35 Albumin 3.2 g/dl (3.4-5.0) L 06/22/19 06:35 Current Medications Generic Name Dose Route Start Last Admin Trade Name Stephanq PRN Reason Stop Dose Admin Atorvastatin Calcium 20 mg 06/21/19 22:00 06/25/19 21:45 Lipitor - PO 20 mg HS CAMELIA Administration Enoxaparin Sodium 50 mg 06/24/19 18:00 06/26/19 17:17 Lovenox - SQ 50 mg Q12H CMAELIA Administration Folic Acid 1 mg 06/21/19 10:00 06/26/19 09:47 Folic Acid - PO 1 mg DAILY CAMELIA Administration Ceftriaxone Sodium 2 gm/ 100 mls @ 200 mls/hr 06/24/19 11:15 06/26/19 09:47 Dextrose IVPB 200 mls/hr DAILY CAMELIA Administration Protocol Lactobacillus Acidophilus 1 tab 06/20/19 15:00 06/26/19 09:47 Bacid - PO 1 tab DAILY CAMELIA Administration Multivitamins/Minerals/Vitamin C 1 tab 06/21/19 10:00 06/26/19 09:47 Tab-A-Vit - PO 1 tab DAILY CAMELIA Administration Thiamine HCl 100 mg 06/21/19 22:00 06/26/19 09:47 Vitamin B1 - PO 100 mg BID CAMELIA Administration Home Medications Medication Instructions Recorded Aspirin [ASA -] 1 tab PO DAILY 05/20/19 RX: Folic Acid 1 tab PO DAILY 05/20/19 RX: Multivitamin [Multiple 1 tab PO DAILY 05/20/19 Vitamins] Atorvastatin Calcium [Lipitor] 20 mg PO DAILY 06/21/19 Thiamine HCl [Vitamin B1] 100 mg PO BID 06/21/19 Microbiology 06/21/19 12:50 Blood - Peripheral Venous Blood Culture - Final NO GROWTH AFTER 5 DAYS INCUBATION 06/23/19 14:14 Leg - Right Lower Gram Stain - Final 06/23/19 14:14 Leg - Right Lower Wound Culture - Preliminary Staphylococcus Latex Coag Pos Lactose Fermenting Neg Bacilli 06/20/19 11:40 Blood - Peripheral Venous Blood Culture - Final NO GROWTH AFTER 5 DAYS INCUBATION 06/21/19 14:00 Urine For Antigen Detection Legionella Antigen - Final 06/21/19 14:00 Urine For Antigen Detection Streptococcus pneumoniae Antigen (M - Final Assessment and plan: 64 y/o with questionable h/o factor V leiden def, PVD, clotting in LE ( venous VS arterial ?) , non compliance, h/o L remote BKA, and recent R BKA, who presented due to an out patient MRI showing tibial OM. # OM in R tibia : on IV rocephin now, a picc line in am and continue ABx outpatient as per ID. on IV Rocephin continue # H/o Clotting disorder /DVT/ arterial thrombosis: very poor historian and no previous records available. ON lovenox will bridge him with coumadin once picc line in place # H/o HL: cont atorvastatin #BL BKAs DVT px: lovenox
[2019-06-26] MEDS: ATORVASTATIN CA 20 MG TABLET (FP) PO SCH (21:31)
[2019-06-27] MEDS: ENOXAPARIN NA (PORCINE) 60 MG/0.6 ML DISP.SYRIN SQ SCH (06:21)
--- NOTE | 2019-06-27 06:54 | PN ---
Progress Note, Physician History of Present Illness: stable no new issues - Current Medication List Current Medications: Active Medications Atorvastatin Calcium (Lipitor -) 20 mg PO HS [facility] Last Admin: 06/26/19 21:31 Dose: 20 mg Enoxaparin Sodium (Lovenox -) 50 mg SQ Q12H [facility] Last Admin: 06/27/19 06:21 Dose: 50 mg Folic Acid (Folic Acid -) 1 mg PO DAILY [facility] Last Admin: 06/26/19 09:47 Dose: 1 mg Ceftriaxone Sodium 2 gm/ (Dextrose) 100 mls @ 200 mls/hr IVPB DAILY [facility]; Protocol Last Admin: 06/26/19 09:47 Dose: 200 mls/hr Lactobacillus Acidophilus (Bacid -) 1 tab PO DAILY [facility] Last Admin: 06/26/19 09:47 Dose: 1 tab Multivitamins/Minerals/Vitamin C (Tab-A-Vit -) 1 tab PO DAILY [facility] Last Admin: 06/26/19 09:47 Dose: 1 tab Thiamine HCl (Vitamin B1 -) 100 mg PO BID [facility] Last Admin: 06/26/19 21:31 Dose: 100 mg - Objective Vital Signs: Vital Signs Temperature 97.7 F 06/27/19 03:00 Pulse Rate 64 06/27/19 03:00 Respiratory Rate 18 06/27/19 03:00 Blood Pressure 105/64 06/27/19 03:00 O2 Sat by Pulse Oximetry (%) 96 06/26/19 19:56 Constitutional: Yes: No Distress, Calm Cardiovascular: Yes: S1, S2 Respiratory: Yes: Regular, CTA Bilaterally Gastrointestinal: Yes: Normal Bowel Sounds, Soft Musculoskeletal: Yes: WNL Extremities: Yes: Other Wound/Incision: Yes: Dressing Dry and Intact Neurological: Yes: Alert, Oriented Psychiatric: Yes: Alert, Oriented Labs: CBC, BMP 06/23/19 06:25 06/23/19 06:25 INR, PTT INR 0.98 (0.83-1.09) 06/25/19 07:20 Assessment/Plan 64 y/o with questionable h/o factor V leiden def, PVD, clotting in LE ( venous VS arterial ?) , non compliance, h/o L remote BKA, and recent R BKA, who presented due to an out patient MRI showing tibial OM. 1- OM in R tibia : 2- H/o Clotting disorder ( ? V Leiden def) , h/o DVT Vs arterial thrombosis: very poor historian and no previous records available. 3 hld wound infection plan continue abx await for identification of the bacteria
[2019-06-27 07:07] LABS: EOS % 3.6 % (0-4.5); HEMATOCRIT 42.8 % (35.4-49); HEMOGLOBIN 14.8 GM/dL (11.7-16.9); LYMPH % 26.9 % (8-40); MCH 32.2 pg (25.7-33.7); MCHC 34.5 g/dl (32.0-35.9); MEAN CELL VOLUME 93.1 fl (80-96); MONO % 8.7 % (3.8-10.2); NEUT % 59.8 % (42.8-82.8); PLATELET COUNT 280 K/MM3 (134-434); RBC 4.59 M/mm3 (4.00-5.60); RDW 15.6 % (11.9-15.9); WHITE BLOOD COUNT 7.3 K/mm3 (4.0-10.0)
[2019-06-27 07:51] LABS: ALBUMIN 3.3 g/dl (3.4-5.0); BILIRUBIN,TOTAL 0.7 mg/dL (0.2-1); BLOOD UREA NITROGEN 13.5 mg/dL (7-18); CALCIUM 8.8 mg/dL (8.5-10.1); CREATININE 0.8 mg/dL (0.55-1.3); POTASSIUM 4.9 mmol/L (3.5-5.1)
[2019-06-27 07:55] LABS: INR 0.97 (0.83-1.09); PROTHROMBIN TIME (PATIENT) 11.5 SEC (9.7-13.0)
[2019-06-27 07:58] LABS: ACTIVATED PTT 37.5 SECONDS (25.2-36.5)
[2019-06-27] MEDS ORDERED: PT OWN MED DRAWER 7, Y5N ONE (10:03)
[2019-06-27] MEDS ORDERED: DEXTROSE 5%-WATER 100 ML IVPB ONE (10:03)
[2019-06-27] MEDS: CEFTRIAXONE 2 GM in DEXTROSE 5%-WATER 100 ML IVPB SCH (10:06)
[2019-06-27] MEDS: MULTIVITAMINS (DAILY MVI) TABLET (FP) PO SCH (10:07)
[2019-06-27] MEDS: THIAMINE HCL 100 MG TABLET (FP) PO SCH ×2 (10:07→21:21)
[2019-06-27] MEDS: LACTOBACILLUS ACIDOPHILUS 1 TABLET PO SCH (10:07)
[2019-06-27] MEDS: FOLIC ACID 1 MG TABLET (FP) PO SCH (10:07)
--- NOTE | 2019-06-27 10:28 | PN ---
Physical Exam: SUBJECTIVE: Patient seen and examined at the bedside. Stated he was feeling well with more energy. Stated his pain was well controlled. Denied cp, sob, abd pain, n/v/c/d, headaches, dizziness, lightheadedness, visual changes, numbness, tingling, focal weakness. OBJECTIVE: Vital Signs Period Temp Pulse Resp BP Sys/Lam Pulse Ox Last 24 Hr 97.6 F-97.7 F 64-91 18-18 103-118/53-64 96 GENERAL: The patient is awake, alert, and fully oriented, in no acute distress. EYES: PERRL, extraocular movements intact, conjunctiva clear. No ptosis. ENT: Oropharynx clear without exudates, moist mucous membranes. Noted poor oral hygiene. LUNGS: Breath sounds equal, clear to auscultation bilaterally, no wheezes, no crackles, no accessory muscle use. HEART: Regular rate and rhythm, S1, S2 without murmur, rub. ABDOMEN: Soft, nontender, nondistended, normoactive bowel sounds, no guarding, no rebound. EXTREMITIES: Bilateral BKA, dressing over biopsy site intact and clean. NEUROLOGICAL: Moving all limbs spontaneously and has 5/5 muscle strength throughout. Sensation intact to gross touch. PSYCH: Pressured speech. Compliant with exam. Normal mood and affect. SKIN: As above on extremities. Dry, warm. Laboratory Results - last 24 hr 06/27/19 06/27/19 06/27/19 06:00 06:00 06:00 WBC 7.3 RBC 4.59 Hgb 14.8 Hct 42.8 MCV 93.1 MCH 32.2 MCHC 34.5 RDW 15.6 Plt Count 280 D MPV 8.0 Absolute Neuts (auto) 4.4 Neutrophils % 59.8 Lymphocytes % 26.9 Monocytes % 8.7 Eosinophils % 3.6 Basophils % 1.0 Nucleated RBC % 0 PT with INR 11.50 INR 0.97 PTT (Actin FS) 37.5 H Sodium 141 Potassium 4.9 Chloride 106 Carbon Dioxide 32 Anion Gap 3 L BUN 13.5 Creatinine 0.8 Est GFR (CKD-EPI)AfAm 110.96 Est GFR (CKD-EPI)NonAf 95.74 Random Glucose 94 Calcium 8.8 Total Bilirubin 0.7 AST 12 L ALT 22 Alkaline Phosphatase 71 Total Protein 6.0 L Albumin 3.3 L Active Medications Generic Name Dose Route Start Last Admin Trade Name Freq PRN Reason Stop Dose Admin Atorvastatin Calcium 20 mg 06/21/19 22:00 06/26/19 21:31 Lipitor - PO 20 mg HS CAMELIA Administration Enoxaparin Sodium 50 mg 06/24/19 18:00 06/27/19 06:21 Lovenox - SQ 50 mg Q12H CAMELIA Administration Folic Acid 1 mg 06/21/19 10:00 06/27/19 10:07 Folic Acid - PO 1 mg DAILY CAMELIA Administration Ceftriaxone Sodium 2 gm/ 100 mls @ 200 mls/hr 06/24/19 11:15 06/27/19 10:06 Dextrose IVPB 200 mls/hr DAILY CAMELIA Administration Protocol Lactobacillus Acidophilus 1 tab 06/20/19 15:00 06/27/19 10:07 Bacid - PO 1 tab DAILY CAMELIA Administration Multivitamins/Minerals/Vitamin C 1 tab 06/21/19 10:00 06/27/19 10:07 Tab-A-Vit - PO 1 tab DAILY CAMELIA Administration Thiamine HCl 100 mg 06/21/19 22:00 06/27/19 10:07 Vitamin B1 - PO 100 mg BID CAMELIA Administration Records obtained from [facility] (Jun 14 2014): Has a history of positive anti-cardiolipin, non-compliance with AC, ulcerative colitis, alcohol abuse/dependence. Was admitted at the time for LOC which was deemed likely in the setting of patient's chronic alcohol use. Patient had a history of thromboembolic events (LLE thrombus s/p L BKA in 2009, positive anti-cardiolipin IGMx2). Was previously on warfarin 5mg qhs but had not been compliant. Was rebridged and restarted on warfarin 5mg qhs. Had consistently low plt levels (100k) and elevated factor VIII. Was advised to follow up with hematology outpatient. ASSESSMENT/PLAN: Roshan Crump is a 64 year old male with past medical history of Factor V Leiden, renal vein thrombosis, LE DVTs, Peripheral artery disease s/p bilateral BKA, hx of C. diff colitis, admitted for osteomyelitis. Osteomyelitis of R tibia - RLE MRI (06/10/2019)-There is subcutaneous edema at the level of the amputation and stump with enhancement compatible with evolving cellulitis and possible evolving ulceration. There is enhancement within the bone marrow of the remnant aspect of the tibia in its most distal aspect compatible with osteomyelitis. No evidence of abscess collection. No evidence of osteomyelitis of the remnant proximal third of the fibula. - Wound culture (05/20/2019) of right stump: Klebsiella, staph aureus, Staph coag neg, Diptheria/Corynebacterium - blood cultures negative to date - ID consulted, recs appreciated, started ceftriaxone (day 5) and will tailor antibiotics to biopsy results, will need PICC, to be placed tomorrow - vascular surgery consulted, obtained bone biopsy - bone biopsy showing Klebsiella pneumonia and Staph Aureus with multiple sensitivities - ESR 7, CRP 0.7 Acute URI, likely viral - flu swab, RSV negative - CXR with no acute pathology - legionella/strep antigen negative - currently improving Hx of Factor V Leiden, PAD, DVT - unclear history, records as above noting history of anticardiolipin antibodies consistent with antiphospholipid syndrome - not on Eliquis, medication was stopped due to bleeding from stump site and hx of GI bleed, was only on medication for less than 1 year, was also previously on coumadin however patient stopped because he no longer wanted frequent INR checks - after discussion with hematology, the ideal AC for antiphospholipid syndrome would be coumadin - options were discussed with the patient regarding the benefits of warfarin including optimal AC for antiphospholipid syndrome, reversibility, and less risk compared with NOACs for GI bleed as patient has a history of GI bleed. Patient understands that he will require frequent monitoring of INR with coumadin. - Lovenox 50mg bid for bridging, will start coumadin after placement of PICC - repeat Factor V Leiden testing after inconclusive records from [facility] - restart aspirin 81mg after PICC placement HLD - continue home atorvastatin FEN - not on any standing fluids - continue to monitor electrolytes and replete as necessary - Sodium restricted diet Prophylaxis - Lovenox 50mg subq bid, held in light of pending PICC placement Disposition - full code - continue to monitor on med surg Visit type - Emergency Visit Emergency Visit: Yes ED Registration Date: 06/20/19 Care time: The patient presented to the Emergency Department on the above date and was hospitalized for further evaluation of their emergent condition. - New Patient This patient is new to me today: No - Critical Care Critical Care patient: No
[2019-06-27 14:46] VITALS: BMI 18.4
--- NOTE | 2019-06-27 19:34 | PN ---
Teaching Attending Note Name of Resident: Roshan Kelley ATTENDING PHYSICIAN STATEMENT I saw and evaluated the patient. I reviewed the resident's note and discussed the case with the resident. I agree with the resident's findings and plan as documented. SUBJECTIVE: comfortbale with no acute distress. Vital Signs Temperature 97.3 F L 06/27/19 16:30 Pulse Rate 73 06/27/19 16:30 Respiratory Rate 20 06/27/19 16:30 Blood Pressure 96/51 L 06/27/19 16:30 O2 Sat by Pulse Oximetry (%) 99 06/27/19 09:00 GENERAL: The patient is awake, alert, and fully oriented, in no acute distress. HEAD: Normal with no signs of trauma. EYES: PERRL, extraocular movements intact, sclera anicteric, conjunctiva clear. ENT: Ears normal, oropharynx clear without exudates, moist mucous membranes. NECK: Trachea midline, full range of motion, supple. LUNGS: Breath sounds equal, clear to auscultation bilaterally, no wheezes, no crackles, no accessory muscle use. HEART: Regular rate and rhythm, S1, S2 without murmur, rub or gallop. ABDOMEN: Soft, Nt,ND, normoactive bowel sounds, no guarding, no rebound, no hepatosplenomegaly, no masses. EXTREMITIES: 2+ pulses, warm, bl BKA s NEUROLOGICAL: Cranial nerves II through XII grossly intact. Normal speech, gait not observed. PSYCH: Normal mood, normal affect. SKIN: Warm, dry, normal turgor, no rashes or lesions noted CBCD WBC 7.3 K/mm3 (4.0-10.0) 06/27/19 06:00 RBC 4.59 M/mm3 (4.00-5.60) 06/27/19 06:00 Hgb 14.8 GM/dL (11.7-16.9) 06/27/19 06:00 Hct 42.8 % (35.4-49) 06/27/19 06:00 MCV 93.1 fl (80-96) 06/27/19 06:00 MCHC 34.5 g/dl (32.0-35.9) 06/27/19 06:00 RDW 15.6 % (11.9-15.9) 06/27/19 06:00 Plt Count 280 K/MM3 (134-434) D 06/27/19 06:00 MPV 8.0 fl (7.5-11.1) 06/27/19 06:00 CMP Sodium 141 mmol/L (136-145) 06/27/19 06:00 Potassium 4.9 mmol/L (3.5-5.1) 06/27/19 06:00 Chloride 106 mmol/L (98-107) 06/27/19 06:00 Carbon Dioxide 32 mmol/L (21-32) 06/27/19 06:00 Anion Gap 3 MMOL/L (8-16) L 06/27/19 06:00 BUN 13.5 mg/dL (7-18) 06/27/19 06:00 Creatinine 0.8 mg/dL (0.55-1.3) 06/27/19 06:00 Random Glucose 94 mg/dL (74-106) 06/27/19 06:00 Calcium 8.8 mg/dL (8.5-10.1) 06/27/19 06:00 Total Bilirubin 0.7 mg/dL (0.2-1) 06/27/19 06:00 AST 12 U/L (15-37) L 06/27/19 06:00 ALT 22 U/L (13-61) 06/27/19 06:00 Alkaline Phosphatase 71 U/L (45-117) 06/27/19 06:00 Total Protein 6.0 g/dl (6.4-8.2) L 06/27/19 06:00 Albumin 3.3 g/dl (3.4-5.0) L 06/27/19 06:00 Current Medications Generic Name Dose Route Start Last Admin Trade Name Freq PRN Reason Stop Dose Admin Atorvastatin Calcium 20 mg 06/21/19 22:00 06/26/19 21:31 Lipitor - PO 20 mg HS CAMELIA Administration Enoxaparin Sodium 50 mg 06/24/19 18:00 06/27/19 06:21 Lovenox - SQ 50 mg Q12H CAMELIA Administration Folic Acid 1 mg 06/21/19 10:00 06/27/19 10:07 Folic Acid - PO 1 mg DAILY CAMELIA Administration Ceftriaxone Sodium 2 gm/ 100 mls @ 200 mls/hr 06/24/19 11:15 06/27/19 10:06 Dextrose IVPB 200 mls/hr DAILY CAMELIA Administration Protocol Lactobacillus Acidophilus 1 tab 06/20/19 15:00 06/27/19 10:07 Bacid - PO 1 tab DAILY CAMELIA Administration Multivitamins/Minerals/Vitamin C 1 tab 06/21/19 10:00 06/27/19 10:07 Tab-A-Vit - PO 1 tab DAILY CAMELIA Administration Thiamine HCl 100 mg 06/21/19 22:00 06/27/19 10:07 Vitamin B1 - PO 100 mg BID CAMELIA Administration Home Medications Medication Instructions Recorded Aspirin [ASA -] 1 tab PO DAILY 05/20/19 Folic Acid 1 tab PO DAILY 05/20/19 Multivitamin [Multiple Vitamins] 1 tab PO DAILY 05/20/19 Atorvastatin Calcium [Lipitor] 20 mg PO DAILY 06/21/19 Thiamine HCl [Vitamin B1] 100 mg PO BID 06/21/19 Gabapentin 300 mg PO BID 06/27/19 Home Medications Medication Instructions Recorded Aspirin [ASA -] 1 tab PO DAILY 05/20/19 RX: Folic Acid 1 tab PO DAILY 05/20/19 RX: Multivitamin [Multiple 1 tab PO DAILY 05/20/19 Vitamins] Atorvastatin Calcium [Lipitor] 20 mg PO DAILY 06/21/19 Thiamine HCl [Vitamin B1] 100 mg PO BID 06/21/19 Microbiology 06/21/19 12:50 Blood - Peripheral Venous Blood Culture - Final NO GROWTH AFTER 5 DAYS INCUBATION 06/23/19 14:14 Leg - Right Lower Gram Stain - Final 06/23/19 14:14 Leg - Right Lower Wound Culture - Preliminary Staphylococcus Latex Coag Pos Lactose Fermenting Neg Bacilli 06/20/19 11:40 Blood - Peripheral Venous Blood Culture - Final NO GROWTH AFTER 5 DAYS INCUBATION 06/21/19 14:00 Urine For Antigen Detection Legionella Antigen - Final 06/21/19 14:00 Urine For Antigen Detection Streptococcus pneumoniae Antigen (M - Final Assessment and plan: 64 y/o with questionable h/o factor V leiden def, PVD, clotting in LE ( venous VS arterial ?) , non compliance, h/o L remote BKA, and recent R BKA, who presented due to an out patient MRI showing tibial OM. # OM in R tibia : on IV rocephin now, a picc line in am , will check with ID which antibioitc to dc patient home with , will wait for the sensitivity # H/o Clotting disorder /DVT/ arterial thrombosis: very poor historian and no previous records available. ON lovenox will bridge him with coumadin once picc line in place # H/o HL: cont atorvastatin #BL BKAs DVT px: lovenox
--- NOTE | 2019-06-27 20:30 | PN ---
Progress Note (short form) - Note Progress Note: Patient seen and examined Denies any specific complaints Last Vital Signs Temp Pulse Resp BP Pulse Ox 97.3 F L 73 20 96/51 L 99 06/27/19 16:30 06/27/19 16:30 06/27/19 16:30 06/27/19 16:30 06/27/19 20:04 Cor: RSR, No murmurs, No gallops Lungs: Clear to P&A Abd: Soft, Normal bowel sounds, No organomegaly Ext:b/l amputations Labs/Meds reviewed A/P 64 y/o with questionable h/o factor V leiden def, PVD, clotting in LE leading to amputation in 2009 ( arterial ?) , h/o L remote BKA, and recent R BKA, who presented due to an out patient MRI showing tibial OM. # OM in R tibia : on IV rocephin now, a picc line in am , will check with ID which antibioitc to dc patient home with , will wait for the sensitivity # H/o Clotting disorder ???/ arterial thrombosis: very poor historian and no previous records available. ON lovenox will bridge him with coumadin once picc line in place. # H/o HL: cont atorvastatin #BL BKAs h/o TIA If positive anticardiolipin IgM on 2 occasions 12 weeks apart - this is consistent with APLS ? of Factor V leiden also raised If indeed + Antiphospholipid and arterial theombosis-- LLE/ TIA---Needs indefinite a/c. In view of this coumadn rather than NOAC is recommended. Moniotor interaction with antibiotics Would repeat antiphospholipid testing--lupus anticoagulant/anticardiolipin antibody IgG/IGM/ [id number] ab IgG /IGM
[2019-06-27] MEDS: ATORVASTATIN CA 20 MG TABLET (FP) PO SCH (21:21)
[2019-06-28 08:29] LABS: INR 0.93 (0.83-1.09)
--- NOTE | 2019-06-28 08:30 | PN ---
Physical Exam: SUBJECTIVE: Patient seen and examined at the bedside. Stated he is feeling well. Denied cp, sob, abd pain, n/v/c/d, fever, chills, headaches, dizziness, lightheadedness, numbness, tingling, pain at the site of the ulcer, bleeding episodes, visual changes. OBJECTIVE: Vital Signs Period Temp Pulse Resp BP Sys/Lam Pulse Ox Last 24 Hr 97.3 F-98.5 F 59-77 18-20 96-117/49-61 99-99 GENERAL: The patient is awake, alert, and fully oriented, in no acute distress. EYES: PERRL, extraocular movements intact, conjunctiva clear. No ptosis. ENT: Oropharynx clear without exudates, moist mucous membranes. Noted poor oral hygiene. LUNGS: Breath sounds equal, clear to auscultation bilaterally, no wheezes, no crackles, no accessory muscle use. HEART: Regular rate and rhythm, S1, S2 without murmur, rub. ABDOMEN: Soft, nontender, nondistended, normoactive bowel sounds, no guarding, no rebound. EXTREMITIES: Bilateral BKA, dressing over biopsy site intact and clean. No pain to palpation of ulcer site. NEUROLOGICAL: Moving all limbs spontaneously and has 5/5 muscle strength throughout. Sensation intact to gross touch. PSYCH: Compliant with exam. Normal mood and affect. SKIN: As above on extremities. Dry, warm. Active Medications Generic Name Dose Route Start Last Admin Trade Name Freq PRN Reason Stop Dose Admin Atorvastatin Calcium 20 mg 06/21/19 22:00 06/27/19 21:21 Lipitor - PO 20 mg HS CAMELIA Administration Enoxaparin Sodium 50 mg 06/24/19 18:00 06/27/19 06:21 Lovenox - SQ 50 mg Q12H CAMELIA Administration Folic Acid 1 mg 06/21/19 10:00 06/27/19 10:07 Folic Acid - PO 1 mg DAILY CAMELIA Administration Ceftriaxone Sodium 2 gm/ 100 mls @ 200 mls/hr 06/24/19 11:15 06/27/19 10:06 Dextrose IVPB 200 mls/hr DAILY CAMELIA Administration Protocol Lactobacillus Acidophilus 1 tab 06/20/19 15:00 06/27/19 10:07 Bacid - PO 1 tab DAILY CAMELIA Administration Multivitamins/Minerals/Vitamin C 1 tab 06/21/19 10:00 06/27/19 10:07 Tab-A-Vit - PO 1 tab DAILY CAMELIA Administration Thiamine HCl 100 mg 06/21/19 22:00 06/27/19 21:21 Vitamin B1 - PO 100 mg BID CAMELIA Administration Records obtained from [facility] (Jun 14 2014): Has a history of positive anti-cardiolipin, non-compliance with AC, ulcerative colitis, alcohol abuse/dependence. Was admitted at the time for LOC which was deemed likely in the setting of patient's chronic alcohol use. Patient had a history of thromboembolic events (LLE thrombus s/p L BKA in 2009, positive anti-cardiolipin IGMx2). Was previously on warfarin 5mg qhs but had not been compliant. Was rebridged and restarted on warfarin 5mg qhs. Had consistently low plt levels (100k) and elevated factor VIII. Was advised to follow up with hematology outpatient. ASSESSMENT/PLAN: Roshan Crump is a 64 year old male with past medical history of Factor V Leiden, renal vein thrombosis, LE DVTs, Peripheral artery disease s/p bilateral BKA, hx of C. diff colitis, admitted for osteomyelitis. Osteomyelitis of R tibia - RLE MRI (06/10/2019)-There is subcutaneous edema at the level of the amputation and stump with enhancement compatible with evolving cellulitis and possible evolving ulceration. There is enhancement within the bone marrow of the remnant aspect of the tibia in its most distal aspect compatible with osteomyelitis. No evidence of abscess collection. No evidence of osteomyelitis of the remnant proximal third of the fibula. - Wound culture (05/20/2019) of right stump: Klebsiella, staph aureus, Staph coag neg, Diptheria/Corynebacterium - blood cultures negative to date - ID consulted, recs appreciated, started ceftriaxone (day 6) for a total of 6 weeks, PICC placed today - vascular surgery consulted, obtained bone biopsy - bone biopsy showing Klebsiella pneumonia and Staph Aureus with multiple sensitivities - ESR 7, CRP 0.7, will need follow up ESR/CRP outpatient Acute URI, likely viral - flu swab, RSV negative - CXR with no acute pathology - legionella/strep antigen negative - currently improving Hx of Factor V Leiden, PAD, DVT - unclear history, records as above noting history of anticardiolipin antibodies consistent with antiphospholipid syndrome - not on Eliquis, medication was stopped due to bleeding from stump site and hx of GI bleed, was only on medication for less than 1 year, was also previously on coumadin however patient stopped because he no longer wanted frequent INR checks - after discussion with hematology, the ideal AC for antiphospholipid syndrome would be coumadin - options were discussed with the patient regarding the benefits of warfarin including optimal AC for antiphospholipid syndrome, reversibility, and less risk compared with NOACs for GI bleed as patient has a history of GI bleed. Patient understands that he will require frequent monitoring of INR with coumadin. - Lovenox 50mg bid for bridging, started coumadin - repeat Factor V Leiden testing after inconclusive records from [facility] - repeat testing for antiphospholipid syndrome - restart aspirin 81mg after PICC placement HLD - continue home atorvastatin FEN - not on any standing fluids - continue to monitor electrolytes and replete as necessary - Sodium restricted diet Prophylaxis - Lovenox 50mg subq bid, restarted today after PICC Disposition - full code - continue to monitor on med surg Visit type - Emergency Visit Emergency Visit: Yes ED Registration Date: 06/20/19 Care time: The patient presented to the Emergency Department on the above date and was hospitalized for further evaluation of their emergent condition. - New Patient This patient is new to me today: No - Critical Care Critical Care patient: No
[2019-06-28 08:32] LABS: ACTIVATED PTT 35.1 SECONDS (25.2-36.5)
--- NOTE | 2019-06-28 08:58 | PN ---
Teaching Attending Note Name of Resident: Roshan Kelley ATTENDING PHYSICIAN STATEMENT I saw and evaluated the patient. I reviewed the resident's note and discussed the case with the resident. I agree with the resident's findings and plan as documented. SUBJECTIVE: Patient is comfortable with no acute distress, no nausea or vomiting. feels better. no new complains. Vital Signs Temperature 97.6 F 06/28/19 06:00 Pulse Rate 59 L 06/28/19 06:00 Respiratory Rate 18 06/28/19 06:00 Blood Pressure 111/61 06/28/19 06:00 O2 Sat by Pulse Oximetry (%) 99 06/27/19 20:04 GENERAL: The patient is awake, alert, and fully oriented, in no acute distress. HEAD: Normal with no signs of trauma. EYES: PERRL, extraocular movements intact, sclera anicteric, conjunctiva clear. ENT: Ears normal, oropharynx clear without exudates, moist mucous membranes. NECK: Trachea midline, full range of motion, supple. LUNGS: Breath sounds equal, clear to auscultation bilaterally, no wheezes, no crackles, no accessory muscle use. HEART: Regular rate and rhythm, S1, S2 without murmur, rub or gallop. ABDOMEN: Soft, Nt,ND, normoactive bowel sounds, no guarding, no rebound, no hepatosplenomegaly, no masses. EXTREMITIES: 2+ pulses, warm, bl BKA s NEUROLOGICAL: Cranial nerves II through XII grossly intact. Normal speech, gait not observed. PSYCH: Normal mood, normal affect. SKIN: Warm, dry, normal turgor, no rashes or lesions noted CBCD WBC 7.3 K/mm3 (4.0-10.0) 06/27/19 06:00 RBC 4.59 M/mm3 (4.00-5.60) 06/27/19 06:00 Hgb 14.8 GM/dL (11.7-16.9) 06/27/19 06:00 Hct 42.8 % (35.4-49) 06/27/19 06:00 MCV 93.1 fl (80-96) 06/27/19 06:00 MCHC 34.5 g/dl (32.0-35.9) 06/27/19 06:00 RDW 15.6 % (11.9-15.9) 06/27/19 06:00 Plt Count 280 K/MM3 (134-434) D 06/27/19 06:00 MPV 8.0 fl (7.5-11.1) 06/27/19 06:00 CMP Sodium 141 mmol/L (136-145) 06/27/19 06:00 Potassium 4.9 mmol/L (3.5-5.1) 06/27/19 06:00 Chloride 106 mmol/L (98-107) 06/27/19 06:00 Carbon Dioxide 32 mmol/L (21-32) 06/27/19 06:00 Anion Gap 3 MMOL/L (8-16) L 06/27/19 06:00 BUN 13.5 mg/dL (7-18) 06/27/19 06:00 Creatinine 0.8 mg/dL (0.55-1.3) 06/27/19 06:00 Random Glucose 94 mg/dL (74-106) 06/27/19 06:00 Calcium 8.8 mg/dL (8.5-10.1) 06/27/19 06:00 Total Bilirubin 0.7 mg/dL (0.2-1) 06/27/19 06:00 AST 12 U/L (15-37) L 06/27/19 06:00 ALT 22 U/L (13-61) 06/27/19 06:00 Alkaline Phosphatase 71 U/L (45-117) 06/27/19 06:00 Total Protein 6.0 g/dl (6.4-8.2) L 06/27/19 06:00 Albumin 3.3 g/dl (3.4-5.0) L 06/27/19 06:00 Current Medications Generic Name Dose Route Start Last Admin Trade Name Freq PRN Reason Stop Dose Admin Aspirin 81 mg 06/29/19 10:00 Asa - PO DAILY CAMELIA Atorvastatin Calcium 20 mg 06/21/19 22:00 06/27/19 21:21 Lipitor - PO 20 mg HS CAMELIA Administration Enoxaparin Sodium 50 mg 06/24/19 18:00 06/27/19 06:21 Lovenox - SQ 50 mg Q12H CAMELIA Administration Folic Acid 1 mg 06/21/19 10:00 06/28/19 09:34 Folic Acid - PO 1 mg DAILY CAMELIA Administration Ceftriaxone Sodium 2 gm/ 100 mls @ 200 mls/hr 06/24/19 11:15 06/28/19 09:34 Dextrose IVPB 200 mls/hr DAILY CAMELIA Administration Protocol Lactobacillus Acidophilus 1 tab 06/20/19 15:00 06/28/19 09:34 Bacid - PO 1 tab DAILY CAMELIA Administration Multivitamins/Minerals/Vitamin C 1 tab 06/21/19 10:00 06/28/19 09:34 Tab-A-Vit - PO 1 tab DAILY CAMELIA Administration Thiamine HCl 100 mg 06/21/19 22:00 06/28/19 09:34 Vitamin B1 - PO 100 mg BID CAMELIA Administration Warfarin Sodium 5 mg 06/28/19 18:00 Coumadin - PO DAILY@1800 [facility] Home Medications Medication Instructions Recorded Aspirin [ASA -] 1 tab PO DAILY 05/20/19 RX: Folic Acid 1 tab PO DAILY 05/20/19 RX: Multivitamin [Multiple 1 tab PO DAILY 05/20/19 Vitamins] Atorvastatin Calcium [Lipitor] 20 mg PO DAILY 06/21/19 Thiamine HCl [Vitamin B1] 100 mg PO BID 06/21/19 Microbiology 06/21/19 12:50 Blood - Peripheral Venous Blood Culture - Final NO GROWTH AFTER 5 DAYS INCUBATION 06/23/19 14:14 Leg - Right Lower Gram Stain - Final 06/23/19 14:14 Leg - Right Lower Wound Culture - Preliminary Staphylococcus Latex Coag Pos Lactose Fermenting Neg Bacilli 06/20/19 11:40 Blood - Peripheral Venous Blood Culture - Final NO GROWTH AFTER 5 DAYS INCUBATION 06/21/19 14:00 Urine For Antigen Detection Legionella Antigen - Final 06/21/19 14:00 Urine For Antigen Detection Streptococcus pneumoniae Antigen (M - Final Assessment and plan: Patient is a 64yom with questionable h/o factor V leiden def, PVD, possible DVT , non compliance, with Hx of Left BKA, and recent Right BKA, who presented to the ED for having out patient MRI showing tibial OM. # OM in R tibia : on IV rocephin now,patient is going for a picc line today . Sensitivity is back , will discuss with to what antibiotic will send the patient out with. # H/o Clotting disorder /DVT/ arterial thrombosis: very poor historian and no previous records available. ON lovenox/ bridge him with coumadin 5mg today # H/o HL: cont atorvastatin #BL BKAs DVT px: lovenox bridge lovenox/coumadin picc line for [facility] abx for om
[2019-06-28] MEDS ORDERED: DEXTROSE 5%-WATER 100 ML IVPB ONE (09:07)
[2019-06-28] MEDS: CEFTRIAXONE 2 GM in DEXTROSE 5%-WATER 100 ML IVPB SCH (09:34)
[2019-06-28] MEDS: MULTIVITAMINS (DAILY MVI) TABLET (FP) PO SCH (09:34)
[2019-06-28] MEDS: FOLIC ACID 1 MG TABLET (FP) PO SCH (09:34)
[2019-06-28] MEDS: THIAMINE HCL 100 MG TABLET (FP) PO SCH ×2 (09:34→21:32)
[2019-06-28] MEDS: LACTOBACILLUS ACIDOPHILUS 1 TABLET PO SCH (09:34)
--- NOTE | 2019-06-28 11:44 | PN ---
Progress Note, Physician History of Present Illness: stable no new issues cx result noted - Current Medication List Current Medications: Active Medications Atorvastatin Calcium (Lipitor -) 20 mg PO HS [facility] Last Admin: 06/27/19 21:21 Dose: 20 mg Enoxaparin Sodium (Lovenox -) 50 mg SQ Q12H [facility] Last Admin: 06/27/19 06:21 Dose: 50 mg Folic Acid (Folic Acid -) 1 mg PO DAILY [facility] Last Admin: 06/28/19 09:34 Dose: 1 mg Ceftriaxone Sodium 2 gm/ (Dextrose) 100 mls @ 200 mls/hr IVPB DAILY [facility]; Protocol Last Admin: 06/28/19 09:34 Dose: 200 mls/hr Lactobacillus Acidophilus (Bacid -) 1 tab PO DAILY [facility] Last Admin: 06/28/19 09:34 Dose: 1 tab Multivitamins/Minerals/Vitamin C (Tab-A-Vit -) 1 tab PO DAILY [facility] Last Admin: 06/28/19 09:34 Dose: 1 tab Thiamine HCl (Vitamin B1 -) 100 mg PO BID [facility] Last Admin: 06/28/19 09:34 Dose: 100 mg - Objective Vital Signs: Vital Signs Temperature 97.6 F 06/28/19 06:00 Pulse Rate 59 L 06/28/19 06:00 Respiratory Rate 18 06/28/19 06:00 Blood Pressure 111/61 06/28/19 06:00 O2 Sat by Pulse Oximetry (%) 99 06/27/19 20:04 Constitutional: Yes: No Distress, Calm Cardiovascular: Yes: S1, S2 Respiratory: Yes: Regular, CTA Bilaterally Gastrointestinal: Yes: Normal Bowel Sounds, Soft Musculoskeletal: Yes: WNL Extremities: Yes: Other Neurological: Yes: Alert, Oriented Psychiatric: Yes: Alert, Oriented Labs: CBC, BMP 06/27/19 06:00 06/27/19 06:00 INR, PTT INR 0.93 (0.83-1.09) 06/28/19 07:10 Assessment/Plan 64 y/o with questionable h/o factor V leiden def, PVD, clotting in LE ( venous VS arterial ?) , non compliance, h/o L remote BKA, and recent R BKA, who presented due to an out patient MRI showing tibial OM. 1- OM in R tibia : 2- H/o Clotting disorder ( ? V Leiden def) , h/o DVT Vs arterial thrombosis: very poor historian and no previous records available. 3 hld wound infection plan continue abx ceftriaxone for 6 weeks esr and crp follow up wound care follow up rest as per the team
[2019-06-28] MEDS: ENOXAPARIN NA (PORCINE) 60 MG/0.6 ML DISP.SYRIN SQ SCH (17:35)
[2019-06-28] MEDS ORDERED: WARFARIN NA 5 MG TABLET (UD) PO SCH (18:00)
[2019-06-28] MEDS: ATORVASTATIN CA 20 MG TABLET (FP) PO SCH (21:32)
[2019-06-29] MEDS: ENOXAPARIN NA (PORCINE) 60 MG/0.6 ML DISP.SYRIN SQ SCH ×2 (05:55→17:37)
--- NOTE | 2019-06-29 06:33 | PN ---
Physical Exam: SUBJECTIVE: Patient seen and examined at the bedside. Stated that he was feeling good and had more energy today. Denied any acute complaints of cp, sob, abd pain, n/v/c/d/, headaches, dizziness, lightheadedness, focal weakness, numbness, tingling. OBJECTIVE: Vital Signs Period Temp Pulse Resp BP Sys/Lam Pulse Ox Last 24 Hr 97.5 F-98.0 F 60-76 18-20 102-119/61-68 94-94 GENERAL: The patient is awake, alert, and fully oriented, in no acute distress. EYES: PERRL, extraocular movements intact, conjunctiva clear. No ptosis. ENT: Oropharynx clear without exudates, moist mucous membranes. Noted poor oral hygiene. LUNGS: Breath sounds equal, clear to auscultation bilaterally, no wheezes, no crackles, no accessory muscle use. HEART: Regular rate and rhythm, S1, S2 without murmur, rub. ABDOMEN: Soft, nontender, nondistended, normoactive bowel sounds, no guarding, no rebound. EXTREMITIES: Bilateral BKA, dressing over biopsy site intact and clean. No pain to palpation of ulcer site. PICC line in place on R arm NEUROLOGICAL: Moving all limbs spontaneously and has 5/5 muscle strength throughout. Sensation intact to gross touch. PSYCH: Compliant with exam. Normal mood and affect. SKIN: As above on extremities. Dry, warm. Laboratory Results - last 24 hr 06/28/19 07:10 PT with INR 11.00 INR 0.93 PTT (Actin FS) 35.1 Active Medications Generic Name Dose Route Start Last Admin Trade Name Ivone PRN Reason Stop Dose Admin Aspirin 81 mg 06/29/19 10:00 Asa - PO DAILY [facility] Atorvastatin Calcium 20 mg 06/21/19 22:00 06/28/19 21:32 Lipitor - PO 20 mg HS CAMELIA Administration Enoxaparin Sodium 50 mg 06/24/19 18:00 06/29/19 05:55 Lovenox - SQ 50 mg Q12H CAMELIA Administration Folic Acid 1 mg 06/21/19 10:00 06/28/19 09:34 Folic Acid - PO 1 mg DAILY CAMELIA Administration Ceftriaxone Sodium 2 gm/ 100 mls @ 200 mls/hr 06/24/19 11:15 06/28/19 09:34 Dextrose IVPB 200 mls/hr DAILY CAMELIA Administration Protocol Lactobacillus Acidophilus 1 tab 06/20/19 15:00 06/28/19 09:34 Bacid - PO 1 tab DAILY CAMELIA Administration Multivitamins/Minerals/Vitamin C 1 tab 06/21/19 10:00 06/28/19 09:34 Tab-A-Vit - PO 1 tab DAILY CAMELIA Administration Thiamine HCl 100 mg 06/21/19 22:00 06/28/19 21:32 Vitamin B1 - PO 100 mg BID CAMELIA Administration Warfarin Sodium 5 mg 06/28/19 18:00 06/28/19 17:35 Coumadin - PO 5 mg DAILY@1800 CAMELIA Administration Records obtained from [facility] (Jun 14 2014): Has a history of positive anti-cardiolipin, non-compliance with AC, ulcerative colitis, alcohol abuse/dependence. Was admitted at the time for LOC which was deemed likely in the setting of patient's chronic alcohol use. Patient had a history of thromboembolic events (LLE thrombus s/p L BKA in 2009, positive anti-cardiolipin IGMx2). Was previously on warfarin 5mg qhs but had not been compliant. Was rebridged and restarted on warfarin 5mg qhs. Had consistently low plt levels (100k) and elevated factor VIII. Was advised to follow up with hematology outpatient. ASSESSMENT/PLAN: Roshan Crump is a 64 year old male with past medical history of Factor V Leiden, renal vein thrombosis, LE DVTs, Peripheral artery disease s/p bilateral BKA, hx of C. diff colitis, admitted for osteomyelitis. Osteomyelitis of R tibia - RLE MRI (06/10/2019)-There is subcutaneous edema at the level of the amputation and stump with enhancement compatible with evolving cellulitis and possible evolving ulceration. There is enhancement within the bone marrow of the remnant aspect of the tibia in its most distal aspect compatible with osteomyelitis. No evidence of abscess collection. No evidence of osteomyelitis of the remnant proximal third of the fibula. - Wound culture (05/20/2019) of right stump: Klebsiella, staph aureus, Staph coag neg, Diptheria/Corynebacterium - blood cultures negative to date - ID consulted, recs appreciated, started ceftriaxone (day 6) for a total of 6 weeks, PICC placed today - vascular surgery consulted, obtained bone biopsy - bone biopsy showing Klebsiella pneumonia and Staph Aureus with multiple sensitivities - ESR 7, CRP 0.7, will need follow up ESR/CRP outpatient Acute URI, likely viral - flu swab, RSV negative - CXR with no acute pathology - legionella/strep antigen negative - currently improving Hx of PAD, DVT - unclear history, records as above noting history of anticardiolipin antibodies consistent with antiphospholipid syndrome - not on Eliquis, medication was stopped due to bleeding from stump site and hx of GI bleed, was only on medication for less than 1 year, was also previously on coumadin however patient stopped because he no longer wanted frequent INR checks - after discussion with hematology, the ideal AC for antiphospholipid syndrome would be coumadin - options were discussed with the patient regarding the benefits of warfarin including optimal AC for antiphospholipid syndrome, reversibility, and less risk compared with NOACs for GI bleed as patient has a history of GI bleed. Patient understands that he will require frequent monitoring of INR with coumadin. - Lovenox 50mg bid for bridging, started coumadin 5mg, increased to 7.5mg and will continue to monitor INR - repeat Factor V Leiden testing shows negative for mutation - repeat testing for antiphospholipid syndrome pending - aspirin 81mg HLD - continue home atorvastatin FEN - not on any standing fluids - continue to monitor electrolytes and replete as necessary - Sodium restricted diet Prophylaxis - Lovenox 50mg subq bid, Coumadin 7.5mg Disposition - full code - continue to monitor on med surg Visit type - Emergency Visit Emergency Visit: Yes ED Registration Date: 06/20/19 Care time: The patient presented to the Emergency Department on the above date and was hospitalized for further evaluation of their emergent condition. - New Patient This patient is new to me today: No - Critical Care Critical Care patient: No
[2019-06-29 07:36] LABS: BASO % 0.6 % (0-2.0); EOS % 2.4 % (0-4.5); HEMATOCRIT 41.3 % (35.4-49); HEMOGLOBIN 14.4 GM/dL (11.7-16.9); MCH 32.4 pg (25.7-33.7); MCHC 34.9 g/dl (32.0-35.9); MEAN CELL VOLUME 92.9 fl (80-96); MEAN PLT VOLUME 7.9 fl (7.5-11.1); MONO % 8.5 % (3.8-10.2); NEUT % 68.5 % (42.8-82.8); PLATELET COUNT 332 K/MM3 (134-434); RBC 4.44 M/mm3 (4.00-5.60); RDW 15.6 % (11.9-15.9); WHITE BLOOD COUNT 8.1 K/mm3 (4.0-10.0)
[2019-06-29 07:59] LABS: BLOOD UREA NITROGEN 14.1 mg/dL (7-18); CALCIUM 8.7 mg/dL (8.5-10.1); CREATININE 0.6 mg/dL (0.55-1.3); POTASSIUM 4.3 mmol/L (3.5-5.1)
[2019-06-29 08:20] LABS: INR 0.96 (0.83-1.09); PROTHROMBIN TIME (PATIENT) 11.3 SEC (9.7-13.0)
[2019-06-29 08:23] LABS: ACTIVATED PTT 40.9 SECONDS (25.2-36.5)
--- NOTE | 2019-06-29 09:26 | PN ---
Progress Note, Physician History of Present Illness: stable no new issues cx result noted - Current Medication List Current Medications: Active Medications Aspirin (Asa -) 81 mg PO DAILY [facility] Atorvastatin Calcium (Lipitor -) 20 mg PO HS [facility] Last Admin: 06/28/19 21:32 Dose: 20 mg Enoxaparin Sodium (Lovenox -) 50 mg SQ Q12H [facility] Last Admin: 06/29/19 05:55 Dose: 50 mg Folic Acid (Folic Acid -) 1 mg PO DAILY [facility] Last Admin: 06/28/19 09:34 Dose: 1 mg Ceftriaxone Sodium 2 gm/ (Dextrose) 100 mls @ 200 mls/hr IVPB DAILY [facility]; Protocol Last Admin: 06/28/19 09:34 Dose: 200 mls/hr Lactobacillus Acidophilus (Bacid -) 1 tab PO DAILY [facility] Last Admin: 06/28/19 09:34 Dose: 1 tab Multivitamins/Minerals/Vitamin C (Tab-A-Vit -) 1 tab PO DAILY [facility] Last Admin: 06/28/19 09:34 Dose: 1 tab Thiamine HCl (Vitamin B1 -) 100 mg PO BID [facility] Last Admin: 06/28/19 21:32 Dose: 100 mg Warfarin Sodium (Coumadin -) 5 mg PO DAILY@1800 [facility] Last Admin: 06/28/19 17:35 Dose: 5 mg - Objective Vital Signs: Vital Signs Temperature 97.6 F 06/29/19 05:31 Pulse Rate 68 06/29/19 05:31 Respiratory Rate 18 06/29/19 05:31 Blood Pressure 119/68 06/29/19 05:31 O2 Sat by Pulse Oximetry (%) 94 L 06/28/19 21:00 Constitutional: Yes: No Distress, Calm Cardiovascular: Yes: Regular Rate and Rhythm Respiratory: Yes: Regular, CTA Bilaterally Gastrointestinal: Yes: Normal Bowel Sounds, Soft Musculoskeletal: Yes: WNL Extremities: Yes: Other Neurological: Yes: Alert, Oriented Psychiatric: Yes: Alert, Oriented Labs: CBC, BMP 06/29/19 06:30 06/29/19 06:30 INR, PTT INR 0.96 (0.83-1.09) 06/29/19 06:30 Assessment/Plan 64 y/o with questionable h/o factor V leiden def, PVD, clotting in LE ( venous VS arterial ?) , non compliance, h/o L remote BKA, and recent R BKA, who presented due to an out patient MRI showing tibial OM. 1- OM in R tibia : 2- H/o Clotting disorder ( ? V Leiden def) , h/o DVT Vs arterial thrombosis: very poor historian and no previous records available. 3 hld wound infection plan continue abx ceftriaxone 2gm daily for 6 weeks esr and crp follow up wound care follow up rest as per the team
[2019-06-29] MEDS ORDERED: PT OWN MED DRAWER 7, Y5N ONE ×3 (10:08→17:32)
[2019-06-29] MEDS ORDERED: DEXTROSE 5%-WATER 100 ML IVPB ONE (10:09)
[2019-06-29] MEDS: ASPIRIN 81 MG CHEWABLE TABLETS PO SCH (10:10)
[2019-06-29] MEDS: FOLIC ACID 1 MG TABLET (FP) PO SCH (10:11)
[2019-06-29] MEDS: LACTOBACILLUS ACIDOPHILUS 1 TABLET PO SCH (10:11)
[2019-06-29] MEDS: MULTIVITAMINS (DAILY MVI) TABLET (FP) PO SCH (10:11)
[2019-06-29] MEDS: THIAMINE HCL 100 MG TABLET (FP) PO SCH ×2 (10:11→22:40)
[2019-06-29] MEDS: CEFTRIAXONE 2 GM in DEXTROSE 5%-WATER 100 ML IVPB SCH (10:12)
[2019-06-29] MEDS: WARFARIN NA 7.5 MG TABLET (FP) PO SCH (17:37)
--- NOTE | 2019-06-29 19:44 | PN ---
Teaching Attending Note Name of Resident: Roshan Kelley ATTENDING PHYSICIAN STATEMENT I saw and evaluated the patient. I reviewed the resident's note and discussed the case with the resident. I agree with the resident's findings and plan as documented. SUBJECTIVE: no pain , no SOB , no N/V OBJECTIVE: NAD CV: RRR. no MRG Lungs: CTAB Ext: b/l BKA. no tenderness No edema on thighs ASSESSMENT AND PLAN: 64 y/o with questionable h/o positive anti-cardiolipin, non-compliance with AC, ulcerative colitis, alcohol abuse/dependence, thromboembolic events (LLE thrombus s/p L BKA in 2009, positive anti-cardiolipin IGMx2), ? factor V leiden def, PVD , and recent R BKA, who presented due to an out patient MRI showing tibial OM. 1- OM in R tibia : - bone cx reviewed - cont ceftriaxone . total of 6 weeks 2- H/o anti-cardiolipin, PVD, thrombophilic events . - cont bridging to coumadin . increase coumadin to 7.5 mg - further f/u as out pt with heme - will probably dc asa when INR is therapeutic 3- H/o HL: cont atorvastatin dispo : plan for home with VNS when ready
[2019-06-29] MEDS: ATORVASTATIN CA 20 MG TABLET (FP) PO SCH (22:39)
[2019-06-30 09:03] LABS: INR 1.11 (0.83-1.09); PROTHROMBIN TIME (PATIENT) 13.1 SEC (9.7-13.0)
[2019-06-30 09:05] LABS: ACTIVATED PTT 48.7 SECONDS (25.2-36.5)
[2019-06-30] MEDS ORDERED: PT OWN MED DRAWER 7, Y5N ONE (10:05)
[2019-06-30] MEDS ORDERED: DEXTROSE 5%-WATER 100 ML IVPB ONE (10:05)
[2019-06-30] MEDS: LACTOBACILLUS ACIDOPHILUS 1 TABLET PO SCH (10:08)
[2019-06-30] MEDS: ASPIRIN 81 MG CHEWABLE TABLETS PO SCH (10:08)
[2019-06-30] MEDS: CEFTRIAXONE 2 GM in DEXTROSE 5%-WATER 100 ML IVPB SCH (10:09)
[2019-06-30] MEDS: FOLIC ACID 1 MG TABLET (FP) PO SCH (10:09)
[2019-06-30] MEDS: MULTIVITAMINS (DAILY MVI) TABLET (FP) PO SCH (10:09)
[2019-06-30] MEDS: THIAMINE HCL 100 MG TABLET (FP) PO SCH ×2 (10:09→21:52)
--- NOTE | 2019-06-30 10:48 | PN ---
Physical Exam: SUBJECTIVE: Patient seen and examined at the bedside. Stated that he is feeling a bit fatigued but otherwise does not have any acute complaints of cp, sob, abd pain, n/v/c/d, headaches, dizziness, lightheadedness, fever, chills, focal weakness, numbness, tingling. OBJECTIVE: Vital Signs Period Temp Pulse Resp BP Sys/Lam Pulse Ox Last 24 Hr 97.5 F-97.9 F 64-78 15-20 108-138/66-84 96 GENERAL: The patient is awake, alert, and fully oriented, in no acute distress. EYES: PERRL, extraocular movements intact, conjunctiva clear. No ptosis. ENT: Oropharynx clear without exudates, moist mucous membranes. Noted poor oral hygiene. LUNGS: Breath sounds equal, clear to auscultation bilaterally, no wheezes, no crackles, no accessory muscle use. HEART: Regular rate and rhythm, S1, S2 without murmur, rub. ABDOMEN: Soft, nontender, nondistended, normoactive bowel sounds, no guarding, no rebound. EXTREMITIES: Bilateral BKA, dressing over biopsy site intact and clean. No pain to palpation of ulcer site. PICC line in place on R arm NEUROLOGICAL: Moving all limbs spontaneously and has 5/5 muscle strength throughout. Sensation intact to gross touch. PSYCH: Compliant with exam. Normal mood and affect. SKIN: As above on extremities. Dry, warm. Laboratory Results - last 24 hr 06/30/19 07:32 PT with INR 13.10 H INR 1.11 H PTT (Actin FS) 48.7 H Active Medications Generic Name Dose Route Start Last Admin Trade Name Ivone PRN Reason Stop Dose Admin Aspirin 81 mg 06/29/19 10:00 06/30/19 10:08 Asa - PO 81 mg DAILY [facility] Administration Atorvastatin Calcium 20 mg 06/21/19 22:00 06/29/19 22:39 Lipitor - PO 20 mg HS [facility] Administration Enoxaparin Sodium 50 mg 06/24/19 18:00 06/29/19 17:37 Lovenox - SQ 50 mg Q12H [facility] Administration Folic Acid 1 mg 06/21/19 10:00 06/30/19 10:09 Folic Acid - PO 1 mg DAILY [facility] Administration Ceftriaxone Sodium 2 gm/ 100 mls @ 200 mls/hr 06/24/19 11:15 06/30/19 10:09 Dextrose IVPB 200 mls/hr DAILY [facility] Administration Protocol Lactobacillus Acidophilus 1 tab 06/20/19 15:00 06/30/19 10:08 Bacid - PO 1 tab DAILY [facility] Administration Multivitamins/Minerals/Vitamin C 1 tab 06/21/19 10:00 06/30/19 10:09 Tab-A-Vit - PO 1 tab DAILY [facility] Administration Thiamine HCl 100 mg 06/21/19 22:00 06/30/19 10:09 Vitamin B1 - PO 100 mg BID [facility] Administration Warfarin Sodium 7.5 mg 06/29/19 18:00 06/29/19 17:37 Coumadin - PO 7.5 mg DAILY@1800 [facility] Administration Records obtained from [facility] (Jun 14 2014): Has a history of positive anti-cardiolipin, non-compliance with AC, ulcerative colitis, alcohol abuse/dependence. Was admitted at the time for LOC which was deemed likely in the setting of patient's chronic alcohol use. Patient had a history of thromboembolic events (LLE thrombus s/p L BKA in 2009, positive anti-cardiolipin IGMx2). Was previously on warfarin 5mg qhs but had not been compliant. Was rebridged and restarted on warfarin 5mg qhs. Had consistently low plt levels (100k) and elevated factor VIII. Was advised to follow up with hematology outpatient. ASSESSMENT/PLAN: Roshan Crump is a 64 year old male with past medical history of Factor V Leiden, renal vein thrombosis, LE DVTs, Peripheral artery disease s/p bilateral BKA, hx of C. diff colitis, admitted for osteomyelitis. Osteomyelitis of R tibia - RLE MRI (06/10/2019)-There is subcutaneous edema at the level of the amputation and stump with enhancement compatible with evolving cellulitis and possible evolving ulceration. There is enhancement within the bone marrow of the remnant aspect of the tibia in its most distal aspect compatible with osteomyelitis. No evidence of abscess collection. No evidence of osteomyelitis of the remnant proximal third of the fibula. - Wound culture (05/20/2019) of right stump: Klebsiella, staph aureus, Staph coag neg, Diptheria/Corynebacterium - blood cultures negative to date - ID consulted, recs appreciated, started ceftriaxone (day 7) for a total of 6 weeks, PICC placed - vascular surgery consulted, obtained bone biopsy - bone biopsy showing Klebsiella pneumonia and Staph Aureus with multiple sensitivities - ESR 7, CRP 0.7, will need follow up ESR/CRP outpatient Acute URI, likely viral, improved - flu swab, RSV negative - CXR with no acute pathology - legionella/strep antigen negative Hx of PAD, DVT - unclear history, records as above noting history of anticardiolipin antibodies consistent with antiphospholipid syndrome - not on Eliquis, medication was stopped due to bleeding from stump site and hx of GI bleed, was only on medication for less than 1 year, was also previously on coumadin however patient stopped because he no longer wanted frequent INR checks - after discussion with hematology, the ideal AC for antiphospholipid syndrome would be coumadin - options were discussed with the patient regarding the benefits of warfarin including optimal AC for antiphospholipid syndrome, reversibility, and less risk compared with NOACs for GI bleed as patient has a history of GI bleed. Patient understands that he will require frequent monitoring of INR with coumadin. - Lovenox 50mg bid for bridging, coumadin 7.5mg and will continue to monitor INR. Monitor in hospital until INR therapeutic as patient has difficulty with self injections - repeat Factor V Leiden testing shows negative for mutation - repeat testing for antiphospholipid syndrome pending - aspirin 81mg HLD - continue home atorvastatin FEN - not on any standing fluids - continue to monitor electrolytes and replete as necessary - Sodium restricted diet Prophylaxis - Lovenox 50mg subq bid, Coumadin 7.5mg Disposition - full code - continue to monitor on med surg Visit type - Emergency Visit Emergency Visit: Yes ED Registration Date: 06/20/19 Care time: The patient presented to the Emergency Department on the above date and was hospitalized for further evaluation of their emergent condition. - New Patient This patient is new to me today: No - Critical Care Critical Care patient: No
--- NOTE | 2019-06-30 12:01 | PN ---
Progress Note, Physician History of Present Illness: stable no new issues cx result noted - Current Medication List Current Medications: Active Medications Aspirin (Asa -) 81 mg PO DAILY [facility] Last Admin: 06/30/19 10:08 Dose: 81 mg Documented by: Atorvastatin Calcium (Lipitor -) 20 mg PO HS [facility] Last Admin: 06/29/19 22:39 Dose: 20 mg Documented by: Enoxaparin Sodium (Lovenox -) 50 mg SQ Q12H [facility] Last Admin: 06/29/19 17:37 Dose: 50 mg Documented by: Folic Acid (Folic Acid -) 1 mg PO DAILY [facility] Last Admin: 06/30/19 10:09 Dose: 1 mg Documented by: Ceftriaxone Sodium 2 gm/ (Dextrose) 100 mls @ 200 mls/hr IVPB DAILY [facility]; Protocol Last Admin: 06/30/19 10:09 Dose: 200 mls/hr Documented by: Lactobacillus Acidophilus (Bacid -) 1 tab PO DAILY [facility] Last Admin: 06/30/19 10:08 Dose: 1 tab Documented by: Multivitamins/Minerals/Vitamin C (Tab-A-Vit -) 1 tab PO DAILY [facility] Last Admin: 06/30/19 10:09 Dose: 1 tab Documented by: Thiamine HCl (Vitamin B1 -) 100 mg PO BID [facility] Last Admin: 06/30/19 10:09 Dose: 100 mg Documented by: Warfarin Sodium (Coumadin -) 7.5 mg PO DAILY@1800 [facility] Last Admin: 06/29/19 17:37 Dose: 7.5 mg Documented by: - Objective Vital Signs: Vital Signs Temperature 97.9 F 06/30/19 06:00 Pulse Rate 64 06/30/19 06:00 Respiratory Rate 20 06/30/19 06:00 Blood Pressure 112/66 06/30/19 06:00 O2 Sat by Pulse Oximetry (%) 96 06/29/19 21:00 Constitutional: Yes: No Distress, Calm Cardiovascular: Yes: S1, S2 Respiratory: Yes: Regular, CTA Bilaterally Gastrointestinal: Yes: Normal Bowel Sounds, Soft Musculoskeletal: Yes: WNL Extremities: Yes: Other Neurological: Yes: Alert, Oriented Psychiatric: Yes: Alert, Oriented Labs: CBC, BMP 06/29/19 06:30 06/29/19 06:30 INR, PTT INR 1.11 (0.83-1.09) H 06/30/19 07:32 Assessment/Plan 64 y/o with questionable h/o factor V leiden def, PVD, clotting in LE ( venous VS arterial ?) , non compliance, h/o L remote BKA, and recent R BKA, who presented due to an out patient MRI showing tibial OM. 1- OM in R tibia : 2- H/o Clotting disorder ( ? V Leiden def) , h/o DVT Vs arterial thrombosis: very poor historian and no previous records available. 3 hld wound infection plan continue abx ceftriaxone 2gm daily for 6 weeks esr and crp follow up wound care follow up rest as per the team
[2019-06-30 13:07] LABS: DRVVT - 37.5 sec (0.0-47.0)
[2019-06-30] MEDS: ENOXAPARIN NA (PORCINE) 60 MG/0.6 ML DISP.SYRIN SQ SCH (17:41)
[2019-06-30] MEDS: WARFARIN NA 7.5 MG TABLET (FP) PO SCH (17:41)
--- NOTE | 2019-06-30 18:07 | PN ---
Teaching Attending Note Name of Resident: Roshan Kelley ATTENDING PHYSICIAN STATEMENT I saw and evaluated the patient. I reviewed the resident's note and discussed the case with the resident. I agree with the resident's findings and plan as documented. SUBJECTIVE: No fever or chills. no pain . No events OBJECTIVE: NAD CV: RRR. no MRG Lungs: CTAB Ext: b/l BKA. No tenderness No edema on stumps and thighs. ASSESSMENT AND PLAN: 64 y/o with questionable h/o positive anti-cardiolipin, non-compliance with AC, ulcerative colitis, alcohol abuse/dependence, thromboembolic events (LLE thrombus s/p L BKA in 2009, positive anti-cardiolipin IGMx2), ? factor V leiden def, PVD , and recent R BKA, who presented due to an out patient MRI showing tibial OM. 1- OM in R tibia: - cont ceftriaxone. total of 6 weeks. 2- H/o anti-cardiolipin, PVD, thrombophilic events . - cont bridging to coumadin . Give coumadin 7.5 mg today - further f/u as out pt with heme - will probably dc asa when INR is therapeutic 3- H/o HL: cont atorvastatin. dispo : plan for home with VNS when INR is therapeutic
[2019-06-30] MEDS: ATORVASTATIN CA 20 MG TABLET (FP) PO SCH (21:51)
[2019-07-01] MEDS: ENOXAPARIN NA (PORCINE) 60 MG/0.6 ML DISP.SYRIN SQ SCH ×3 (05:48→17:12)
[2019-07-01 08:31] LABS: INR 1.59 (0.83-1.09); PROTHROMBIN TIME (PATIENT) 18.8 SEC (9.7-13.0)
--- NOTE | 2019-07-01 09:21 | PN ---
Progress Note, Physician History of Present Illness: patient stable no new issues - Current Medication List Current Medications: Active Medications Aspirin (Asa -) 81 mg PO DAILY [facility] Last Admin: 06/30/19 10:08 Dose: 81 mg Documented by: Atorvastatin Calcium (Lipitor -) 20 mg PO HS [facility] Last Admin: 06/30/19 21:51 Dose: 20 mg Documented by: Enoxaparin Sodium (Lovenox -) 50 mg SQ Q12H [facility] Last Admin: 07/01/19 07:55 Dose: Not Given Documented by: Folic Acid (Folic Acid -) 1 mg PO DAILY [facility] Last Admin: 06/30/19 10:09 Dose: 1 mg Documented by: Ceftriaxone Sodium 2 gm/ (Dextrose) 100 mls @ 200 mls/hr IVPB DAILY [facility]; Protocol Last Admin: 06/30/19 10:09 Dose: 200 mls/hr Documented by: Lactobacillus Acidophilus (Bacid -) 1 tab PO DAILY [facility] Last Admin: 06/30/19 10:08 Dose: 1 tab Documented by: Multivitamins/Minerals/Vitamin C (Tab-A-Vit -) 1 tab PO DAILY [facility] Last Admin: 06/30/19 10:09 Dose: 1 tab Documented by: Thiamine HCl (Vitamin B1 -) 100 mg PO BID [facility] Last Admin: 06/30/19 21:52 Dose: 100 mg Documented by: Warfarin Sodium (Coumadin -) 7.5 mg PO DAILY@1800 [facility] Last Admin: 06/30/19 17:41 Dose: 7.5 mg Documented by: - Objective Vital Signs: Vital Signs Temperature 98.1 F 07/01/19 05:00 Pulse Rate 65 07/01/19 05:00 Respiratory Rate 16 07/01/19 05:00 Blood Pressure 105/56 L 07/01/19 05:00 O2 Sat by Pulse Oximetry (%) 98 06/30/19 21:00 Constitutional: Yes: No Distress, Calm Respiratory: Yes: Regular, CTA Bilaterally Gastrointestinal: Yes: Normal Bowel Sounds, Soft Musculoskeletal: Yes: WNL Extremities: Yes: Other Neurological: Yes: Alert, Oriented Psychiatric: Yes: Alert, Oriented Labs: CBC, BMP 06/29/19 06:30 06/29/19 06:30 INR, PTT INR 1.59 (0.83-1.09) H 07/01/19 06:55 Assessment/Plan 64 y/o with questionable h/o factor V leiden def, PVD, clotting in LE ( venous VS arterial ?) , non compliance, h/o L remote BKA, and recent R BKA, who presented due to an out patient MRI showing tibial OM. 1- OM in R tibia : 2- H/o Clotting disorder ( ? V Leiden def) , h/o DVT Vs arterial thrombosis: very poor historian and no previous records available. 3 hld wound infection plan continue abx ceftriaxone 2gm daily for 6 weeks esr and crp follow up wound care follow up rest as per the team
[2019-07-01] MEDS ORDERED: DEXTROSE 5%-WATER 100 ML IVPB ONE (10:20)
[2019-07-01] MEDS: CEFTRIAXONE 2 GM in DEXTROSE 5%-WATER 100 ML IVPB SCH (10:27)
[2019-07-01] MEDS: LACTOBACILLUS ACIDOPHILUS 1 TABLET PO SCH (10:27)
[2019-07-01] MEDS: THIAMINE HCL 100 MG TABLET (FP) PO SCH ×2 (10:27→21:10)
[2019-07-01] MEDS: MULTIVITAMINS (DAILY MVI) TABLET (FP) PO SCH (10:27)
[2019-07-01] MEDS: ASPIRIN 81 MG CHEWABLE TABLETS PO SCH (10:27)
[2019-07-01] MEDS: FOLIC ACID 1 MG TABLET (FP) PO SCH (10:27)
--- NOTE | 2019-07-01 13:34 | PN ---
Physical Exam: SUBJECTIVE: Patient seen and examined at the bedside. Stated he was feeling fatigued but otherwise well. Denied acute complaints of cp, sob, abd pain, n/v/c/d, headaches, dizziness, lightheadedness, fever, chills, extremity pain. OBJECTIVE: Vital Signs Period Temp Pulse Resp BP Sys/Lam Pulse Ox Last 24 Hr 96.4 F-98.1 F 65-75 15-20 96-114/56-63 98 GENERAL: The patient is awake, alert, and fully oriented, in no acute distress. EYES: PERRL, extraocular movements intact, conjunctiva clear. No ptosis. ENT: Oropharynx clear without exudates, moist mucous membranes. Noted poor oral hygiene. LUNGS: Breath sounds equal, clear to auscultation bilaterally, no wheezes, no crackles, no accessory muscle use. HEART: Regular rate and rhythm, S1, S2 without murmur, rub. ABDOMEN: Soft, nontender, nondistended, normoactive bowel sounds, no guarding, no rebound. EXTREMITIES: Bilateral BKA, dressing over biopsy site intact and clean. No pain to palpation of ulcer site. PICC line in place on R arm NEUROLOGICAL: Moving all limbs spontaneously and has 5/5 muscle strength throughout. Sensation intact to gross touch. PSYCH: Compliant with exam. Normal mood and affect. SKIN: As above on extremities. Dry, warm. Laboratory Results - last 24 hr 07/01/19 06:55 PT with INR 18.80 H INR 1.59 H Active Medications Generic Name Dose Route Start Last Admin Trade Name Freq PRN Reason Stop Dose Admin Aspirin 81 mg 06/29/19 10:00 07/01/19 10:27 Asa - PO 81 mg DAILY [facility] Administration Atorvastatin Calcium 20 mg 06/21/19 22:00 06/30/19 21:51 Lipitor - PO 20 mg HS [facility] Administration Enoxaparin Sodium 50 mg 06/24/19 18:00 07/01/19 07:55 Lovenox - SQ Not Given Q12H [facility] Folic Acid 1 mg 06/21/19 10:00 07/01/19 10:27 Folic Acid - PO 1 mg DAILY [facility] Administration Ceftriaxone Sodium 2 gm/ 100 mls @ 200 mls/hr 06/24/19 11:15 07/01/19 10:27 Dextrose IVPB 200 mls/hr DAILY [facility] Administration Protocol Lactobacillus Acidophilus 1 tab 06/20/19 15:00 07/01/19 10:27 Bacid - PO 1 tab DAILY [facility] Administration Multivitamins/Minerals/Vitamin C 1 tab 06/21/19 10:00 07/01/19 10:27 Tab-A-Vit - PO 1 tab DAILY [facility] Administration Thiamine HCl 100 mg 06/21/19 22:00 07/01/19 10:27 Vitamin B1 - PO 100 mg BID [facility] Administration Warfarin Sodium 7.5 mg 06/29/19 18:00 06/30/19 17:41 Coumadin - PO 7.5 mg DAILY@1800 [facility] Administration Records obtained from [facility] (Jun 14 2014): Has a history of positive anti-cardiolipin, non-compliance with AC, ulcerative colitis, alcohol abuse/dependence. Was admitted at the time for LOC which was deemed likely in the setting of patient's chronic alcohol use. Patient had a history of thromboembolic events (LLE thrombus s/p L BKA in 2009, positive anti-cardiolipin IGMx2). Was previously on warfarin 5mg qhs but had not been compliant. Was rebridged and restarted on warfarin 5mg qhs. Had consistently low plt levels (100k) and elevated factor VIII. Was advised to follow up with hematology outpatient. ASSESSMENT/PLAN: Roshan Crump is a 64 year old male with past medical history of Factor V Leiden, renal vein thrombosis, LE DVTs, Peripheral artery disease s/p bilateral BKA, hx of C. diff colitis, admitted for osteomyelitis. Osteomyelitis of R tibia - RLE MRI (06/10/2019)-There is subcutaneous edema at the level of the amputation and stump with enhancement compatible with evolving cellulitis and possible evolving ulceration. There is enhancement within the bone marrow of the remnant aspect of the tibia in its most distal aspect compatible with osteomyelitis. No evidence of abscess collection. No evidence of osteomyelitis of the remnant proximal third of the fibula. - Wound culture (05/20/2019) of right stump: Klebsiella, staph aureus, Staph coag neg, Diptheria/Corynebacterium - blood cultures negative to date - ID consulted, recs appreciated, started ceftriaxone (day 8) for a total of 6 weeks, PICC placed - vascular surgery consulted, obtained bone biopsy - bone biopsy showing Klebsiella pneumonia and Staph Aureus with multiple sensitivities - ESR 7, CRP 0.7, will need follow up ESR/CRP outpatient Acute URI, likely viral, improved - flu swab, RSV negative - CXR with no acute pathology - legionella/strep antigen negative Hx of PAD, DVT - unclear history, records as above noting history of anticardiolipin antibodies consistent with antiphospholipid syndrome - not on Eliquis, medication was stopped due to bleeding from stump site and hx of GI bleed, was only on medication for less than 1 year, was also previously on coumadin however patient stopped because he no longer wanted frequent INR checks - after discussion with hematology, the ideal AC for antiphospholipid syndrome would be coumadin - options were discussed with the patient regarding the benefits of warfarin including optimal AC for antiphospholipid syndrome, reversibility, and less risk compared with NOACs for GI bleed as patient has a history of GI bleed. Patient understands that he will require frequent monitoring of INR with coumadin. - Lovenox 50mg bid for bridging, coumadin 7.5mg and will continue to monitor INR. Monitor in hospital until INR therapeutic as patient has difficulty with self injections - repeat Factor V Leiden testing shows negative for mutation - repeat testing for antiphospholipid syndrome noting negative screen, discussed with hematology and as patient has history of PAD and multiple thrombotic events with 2x positive for anti-cardiolipin antibodies would require life-long anticoagulation - aspirin 81mg HLD - continue home atorvastatin FEN - not on any standing fluids - continue to monitor electrolytes and replete as necessary - Sodium restricted diet Prophylaxis - Lovenox 50mg subq bid, Coumadin 7.5mg Disposition - full code - continue to monitor on med surg Visit type - Emergency Visit Emergency Visit: Yes ED Registration Date: 06/20/19 Care time: The patient presented to the Emergency Department on the above date and was hospitalized for further evaluation of their emergent condition. - New Patient This patient is new to me today: No - Critical Care Critical Care patient: No
[2019-07-01] MEDS: WARFARIN NA 7.5 MG TABLET (FP) PO SCH (17:12)
--- NOTE | 2019-07-01 17:48 | PN ---
Teaching Attending Note Name of Resident: Roshan Kelley ATTENDING PHYSICIAN STATEMENT I saw and evaluated the patient. I reviewed the resident's note and discussed the case with the resident. I agree with the resident's findings and plan as documented. SUBJECTIVE: No fever or chills. NO BRADEN . No N/V . feels tired. OBJECTIVE: NAD CV: RRR. no MRG Lungs: CTAB Ext: b/l BKA. No tenderness No edema on stumps and thighs. ASSESSMENT AND PLAN: 64 y/o with questionable h/o positive anti-cardiolipin, non-compliance with AC, ulcerative colitis, alcohol abuse/dependence, thromboembolic events (LLE thrombus s/p L BKA in 2009, positive anti-cardiolipin IGMx2), ? factor V leiden def, PVD , and recent R BKA, who presented due to an out patient MRI showing tibial OM. 1- OM in R tibia: - cont ceftriaxone. total of 6 weeks. 2- H/o anti-cardiolipin, PVD, thrombophilic events . - cont bridging to coumadin . Give coumadin 7.5 mg today agian . INR 1.56 - further f/u as out pt with heme - will probably dc asa when INR is therapeutic 3- H/o HL: cont atorvastatin. dispo: plan for home with VNS when INR is therapeutic
[2019-07-01] MEDS: ATORVASTATIN CA 20 MG TABLET (FP) PO SCH (21:10)
[2019-07-02] MEDS: ENOXAPARIN NA (PORCINE) 60 MG/0.6 ML DISP.SYRIN SQ SCH ×2 (06:35→18:09)
[2019-07-02 08:01] LABS: INR 1.84 (0.83-1.09); PROTHROMBIN TIME (PATIENT) 21.8 SEC (9.7-13.0)
--- NOTE | 2019-07-02 09:00 | PN ---
Physical Exam: SUBJECTIVE: Patient seen and examined at the bedside. Stated he is feeling well but fatigued. Denies acute complaints of cp, sob, abd pain, fever, chills, headaches, dizziness, lightheadedness, focal numbness, tingling, pain at the ulcer site or drainage. OBJECTIVE: Vital Signs Period Temp Pulse Resp BP Sys/Lam Pulse Ox Last 24 Hr 96.4 F-99.7 F 61-84 18-20 96-117/51-70 98-98 GENERAL: The patient is awake, alert, and fully oriented, in no acute distress. EYES: PERRL, extraocular movements intact, conjunctiva clear. No ptosis. ENT: Oropharynx clear without exudates, moist mucous membranes. Noted poor oral hygiene. LUNGS: Breath sounds equal, clear to auscultation bilaterally, no wheezes, no crackles, no accessory muscle use. HEART: Regular rate and rhythm, S1, S2 without murmur, rub. ABDOMEN: Soft, nontender, nondistended, normoactive bowel sounds, no guarding, no rebound. EXTREMITIES: Bilateral BKA, dressing over biopsy site intact and clean. No pain to palpation of ulcer site. PICC line in place on R arm NEUROLOGICAL: Moving all limbs spontaneously and has 5/5 muscle strength throughout. Sensation intact to gross touch. PSYCH: Compliant with exam. Normal mood and affect. SKIN: As above on extremities. Dry, warm. Laboratory Results - last 24 hr 07/02/19 06:17 PT with INR 21.80 H INR 1.84 H Active Medications Generic Name Dose Route Start Last Admin Trade Name Freq PRN Reason Stop Dose Admin Aspirin 81 mg 06/29/19 10:00 07/01/19 10:27 Asa - PO 81 mg DAILY [facility] Administration Atorvastatin Calcium 20 mg 06/21/19 22:00 07/01/19 21:10 Lipitor - PO 20 mg HS [facility] Administration Enoxaparin Sodium 50 mg 06/24/19 18:00 07/02/19 06:35 Lovenox - SQ 50 mg Q12H [facility] Administration Folic Acid 1 mg 06/21/19 10:00 07/01/19 10:27 Folic Acid - PO 1 mg DAILY [facility] Administration Ceftriaxone Sodium 2 gm/ 100 mls @ 200 mls/hr 06/24/19 11:15 07/01/19 10:27 Dextrose IVPB 200 mls/hr DAILY [facility] Administration Protocol Lactobacillus Acidophilus 1 tab 06/20/19 15:00 07/01/19 10:27 Bacid - PO 1 tab DAILY [facility] Administration Multivitamins/Minerals/Vitamin C 1 tab 06/21/19 10:00 07/01/19 10:27 Tab-A-Vit - PO 1 tab DAILY [facility] Administration Thiamine HCl 100 mg 06/21/19 22:00 07/01/19 21:10 Vitamin B1 - PO 100 mg BID [facility] Administration Warfarin Sodium 7.5 mg 06/29/19 18:00 07/01/19 17:12 Coumadin - PO 7.5 mg DAILY@1800 [facility] Administration Records obtained from [facility] (Jun 14 2014): Has a history of positive anti-cardiolipin, non-compliance with AC, ulcerative colitis, alcohol abuse/dependence. Was admitted at the time for LOC which was deemed likely in the setting of patient's chronic alcohol use. Patient had a history of thromboembolic events (LLE thrombus s/p L BKA in 2009, positive anti-cardiolipin IGMx2). Was previously on warfarin 5mg qhs but had not been compliant. Was rebridged and restarted on warfarin 5mg qhs. Had consistently low plt levels (100k) and elevated factor VIII. Was advised to follow up with hematology outpatient. ASSESSMENT/PLAN: Roshan Crump is a 64 year old male with past medical history of Factor V Leiden, renal vein thrombosis, LE DVTs, Peripheral artery disease s/p bilateral BKA, hx of C. diff colitis, admitted for osteomyelitis. Osteomyelitis of R tibia - RLE MRI (06/10/2019)-There is subcutaneous edema at the level of the amputation and stump with enhancement compatible with evolving cellulitis and possible evolving ulceration. There is enhancement within the bone marrow of the remnant aspect of the tibia in its most distal aspect compatible with osteomyelitis. No evidence of abscess collection. No evidence of osteomyelitis of the remnant proximal third of the fibula. - Wound culture (05/20/2019) of right stump: Klebsiella, staph aureus, Staph coag neg, Diptheria/Corynebacterium - blood cultures negative to date - ID consulted, recs appreciated, started ceftriaxone (day 8) for a total of 6 weeks, PICC placed - vascular surgery consulted, obtained bone biopsy - bone biopsy showing Klebsiella pneumonia and Staph Aureus with multiple sensitivities - ESR 7, CRP 0.7, will need follow up ESR/CRP outpatient Acute URI, likely viral, improved - flu swab, RSV negative - CXR with no acute pathology - legionella/strep antigen negative Hx of PAD, DVT - unclear history, records as above noting history of anticardiolipin antibodies consistent with antiphospholipid syndrome - not on Eliquis, medication was stopped due to bleeding from stump site and hx of GI bleed, was only on medication for less than 1 year, was also previously on coumadin however patient stopped because he no longer wanted frequent INR checks - after discussion with hematology, the ideal AC for antiphospholipid syndrome would be coumadin - options were discussed with the patient regarding the benefits of warfarin including optimal AC for antiphospholipid syndrome, reversibility, and less risk compared with NOACs for GI bleed as patient has a history of GI bleed. Patient understands that he will require frequent monitoring of INR with coumadin. - Lovenox 50mg bid for bridging, coumadin 7.5mg and will continue to monitor INR. Monitor in hospital until INR therapeutic as patient has difficulty with self injections - repeat Factor V Leiden testing shows negative for mutation - repeat testing for antiphospholipid syndrome noting negative screen, discussed with hematology and as patient has history of PAD and multiple thrombotic events with 2x positive for anti-cardiolipin antibodies would require life-long anticoagulation - aspirin 81mg HLD - continue home atorvastatin FEN - not on any standing fluids - continue to monitor electrolytes and replete as necessary - Sodium restricted diet Prophylaxis - Lovenox 50mg subq bid, Coumadin 7.5mg Disposition - full code - continue to monitor on med surg Visit type - Emergency Visit Emergency Visit: Yes ED Registration Date: 06/20/19 Care time: The patient presented to the Emergency Department on the above date and was hospitalized for further evaluation of their emergent condition. - New Patient This patient is new to me today: No - Critical Care Critical Care patient: No
[2019-07-02] MEDS ORDERED: PT OWN MED DRAWER 7, Y5N ONE (10:21)
[2019-07-02] MEDS ORDERED: DEXTROSE 5%-WATER 100 ML IVPB ONE (10:21)
[2019-07-02] MEDS: CEFTRIAXONE 2 GM in DEXTROSE 5%-WATER 100 ML IVPB SCH (10:32)
[2019-07-02] MEDS: FOLIC ACID 1 MG TABLET (FP) PO SCH (10:32)
[2019-07-02] MEDS: ASPIRIN 81 MG CHEWABLE TABLETS PO SCH (10:32)
[2019-07-02] MEDS: LACTOBACILLUS ACIDOPHILUS 1 TABLET PO SCH (10:32)
[2019-07-02] MEDS: THIAMINE HCL 100 MG TABLET (FP) PO SCH ×2 (10:32→21:19)
[2019-07-02] MEDS: MULTIVITAMINS (DAILY MVI) TABLET (FP) PO SCH (10:32)
--- NOTE | 2019-07-02 12:51 | PN ---
Progress Note, Physician History of Present Illness: no new issues - Current Medication List Current Medications: Active Medications Aspirin (Asa -) 81 mg PO DAILY [facility] Last Admin: 07/02/19 10:32 Dose: 81 mg Documented by: Atorvastatin Calcium (Lipitor -) 20 mg PO HS [facility] Last Admin: 07/01/19 21:10 Dose: 20 mg Documented by: Enoxaparin Sodium (Lovenox -) 50 mg SQ Q12H [facility] Last Admin: 07/02/19 06:35 Dose: 50 mg Documented by: Folic Acid (Folic Acid -) 1 mg PO DAILY [facility] Last Admin: 07/02/19 10:32 Dose: 1 mg Documented by: Ceftriaxone Sodium 2 gm/ (Dextrose) 100 mls @ 200 mls/hr IVPB DAILY [facility]; Protocol Last Admin: 07/02/19 10:32 Dose: 200 mls/hr Documented by: Lactobacillus Acidophilus (Bacid -) 1 tab PO DAILY [facility] Last Admin: 07/02/19 10:32 Dose: 1 tab Documented by: Multivitamins/Minerals/Vitamin C (Tab-A-Vit -) 1 tab PO DAILY [facility] Last Admin: 07/02/19 10:32 Dose: 1 tab Documented by: Thiamine HCl (Vitamin B1 -) 100 mg PO BID [facility] Last Admin: 07/02/19 10:32 Dose: 100 mg Documented by: Warfarin Sodium (Coumadin -) 7.5 mg PO DAILY@1800 [facility] Last Admin: 07/01/19 17:12 Dose: 7.5 mg Documented by: - Objective Vital Signs: Vital Signs Temperature 97.9 F 07/02/19 06:00 Pulse Rate 61 07/02/19 06:00 Respiratory Rate 20 07/02/19 06:00 Blood Pressure 117/61 07/02/19 06:00 O2 Sat by Pulse Oximetry (%) 98 07/01/19 21:00 Constitutional: Yes: No Distress, Calm Cardiovascular: Yes: S1, S2 Respiratory: Yes: Regular, CTA Bilaterally Gastrointestinal: Yes: Normal Bowel Sounds, Soft Musculoskeletal: Yes: Other Extremities: Yes: Other Neurological: Yes: Alert Psychiatric: Yes: Alert Labs: CBC, BMP 06/29/19 06:30 06/29/19 06:30 INR, PTT INR 1.84 (0.83-1.09) H 07/02/19 06:17 Assessment/Plan 64 y/o with questionable h/o factor V leiden def, PVD, clotting in LE ( venous VS arterial ?) , non compliance, h/o L remote BKA, and recent R BKA, who presented due to an out patient MRI showing tibial OM. 1- OM in R tibia : 2- H/o Clotting disorder ( ? V Leiden def) , h/o DVT Vs arterial thrombosis: very poor historian and no previous records available. 3 hld wound infection plan continue abx course as planned
--- NOTE | 2019-07-02 14:46 | PN ---
Teaching Attending Note Name of Resident: Ron Hagan ATTENDING PHYSICIAN STATEMENT I saw and evaluated the patient. I reviewed the resident's note and discussed the case with the resident. I agree with the resident's findings and plan as documented. SUBJECTIVE: no pain, feels stronger today OBJECTIVE: NAD CV: RRR. no MRG Lungs: CTAB Ext: b/l BKA. No tenderness No edema on stumps and thighs. ASSESSMENT AND PLAN: 64 y/o with questionable h/o positive anti-cardiolipin, non-compliance with AC, ulcerative colitis, alcohol abuse/dependence, thromboembolic events (LLE thrombus s/p L BKA in 2009, positive anti-cardiolipin IGMx2), ? factor V leiden def, PVD , and recent R BKA, who presented due to an out patient MRI showing tibial OM. 1- OM in R tibia: - cont ceftriaxone. total of 6 weeks. 2- H/o anti-cardiolipin, PVD, thrombophilic events . - cont bridging to coumadin . Give coumadin 7.5 mg today . INR 1.82 - further f/u as out pt with heme - will dc asa when INR is therapeutic 3- H/o HL: cont atorvastatin. Dispo: plan for home with [facility] when INR is therapeutic
[2019-07-02] MEDS: WARFARIN NA 7.5 MG TABLET (FP) PO SCH (18:09)
[2019-07-02] MEDS: ATORVASTATIN CA 20 MG TABLET (FP) PO SCH (21:19)
[2019-07-03] MEDS: ENOXAPARIN NA (PORCINE) 60 MG/0.6 ML DISP.SYRIN SQ SCH (05:57)
[2019-07-03 07:05] LABS: INR 2.17 (0.83-1.09); PROTHROMBIN TIME (PATIENT) 25.8 SEC (9.7-13.0)
[2019-07-03] MEDS ORDERED: PT OWN MED DRAWER 7, Y5N ONE (10:06)
[2019-07-03] MEDS ORDERED: DEXTROSE 5%-WATER 100 ML IVPB ONE (10:06)
[2019-07-03] MEDS: THIAMINE HCL 100 MG TABLET (FP) PO SCH ×2 (10:09→21:53)
[2019-07-03] MEDS: CEFTRIAXONE 2 GM in DEXTROSE 5%-WATER 100 ML IVPB SCH (10:09)
[2019-07-03] MEDS: ASPIRIN 81 MG CHEWABLE TABLETS PO SCH (10:09)
[2019-07-03] MEDS: LACTOBACILLUS ACIDOPHILUS 1 TABLET PO SCH (10:09)
[2019-07-03] MEDS: MULTIVITAMINS (DAILY MVI) TABLET (FP) PO SCH (10:09)
[2019-07-03] MEDS: FOLIC ACID 1 MG TABLET (FP) PO SCH (10:09)
[2019-07-03] MEDS: NORMAL SALINE FLUSH 0.9% 10 ML SYRINGE IVPUSH PRN ×2 (11:30→18:58)
--- NOTE | 2019-07-03 13:27 | PN ---
Progress Note, Physician History of Present Illness: stable no new issues - Current Medication List Current Medications: Active Medications Aspirin (Asa -) 81 mg PO DAILY [facility] Last Admin: 07/03/19 10:09 Dose: 81 mg Documented by: Atorvastatin Calcium (Lipitor -) 20 mg PO HS [facility] Last Admin: 07/02/19 21:19 Dose: 20 mg Documented by: Enoxaparin Sodium (Lovenox -) 50 mg SQ Q12H [facility] Last Admin: 07/03/19 05:57 Dose: 50 mg Documented by: Folic Acid (Folic Acid -) 1 mg PO DAILY [facility] Last Admin: 07/03/19 10:09 Dose: 1 mg Documented by: Ceftriaxone Sodium 2 gm/ (Dextrose) 100 mls @ 200 mls/hr IVPB DAILY [facility]; Protocol Last Admin: 07/03/19 10:09 Dose: 200 mls/hr Documented by: Lactobacillus Acidophilus (Bacid -) 1 tab PO DAILY [facility] Last Admin: 07/03/19 10:09 Dose: 1 tab Documented by: Multivitamins/Minerals/Vitamin C (Tab-A-Vit -) 1 tab PO DAILY [facility] Last Admin: 07/03/19 10:09 Dose: 1 tab Documented by: Thiamine HCl (Vitamin B1 -) 100 mg PO BID [facility] Last Admin: 07/03/19 10:09 Dose: 100 mg Documented by: Warfarin Sodium (Coumadin -) 7.5 mg PO DAILY@1800 [facility] Last Admin: 07/02/19 18:09 Dose: 7.5 mg Documented by: - Objective Vital Signs: Vital Signs Temperature 97.4 F L 07/02/19 21:00 Pulse Rate 84 07/02/19 21:00 Respiratory Rate 18 07/02/19 21:00 Blood Pressure 134/80 07/02/19 21:00 O2 Sat by Pulse Oximetry (%) 96 07/02/19 21:00 Constitutional: Yes: No Distress, Calm Cardiovascular: Yes: S1, S2 Respiratory: Yes: Regular, CTA Bilaterally Gastrointestinal: Yes: Normal Bowel Sounds, Soft Musculoskeletal: Yes: WNL Extremities: Yes: Other Neurological: Yes: Alert, Oriented Psychiatric: Yes: Alert, Oriented Labs: CBC, BMP 06/29/19 06:30 06/29/19 06:30 INR, PTT INR 2.17 (0.83-1.09) H 03/08/20 06:05 Assessment/Plan 64 y/o with questionable h/o factor V leiden def, PVD, clotting in LE ( venous VS arterial ?) , non compliance, h/o L remote BKA, and recent R BKA, who presented due to an out patient MRI showing tibial OM. 1- OM in R tibia : 2- H/o Clotting disorder ( ? V Leiden def) , h/o DVT Vs arterial thrombosis: very poor historian and no previous records available. 3 hld wound infection plan continue abx course as planned
--- NOTE | 2019-07-03 16:32 | PN ---
Progress Note (short form) - Note Progress Note: Subjective: No fever or chills. no pain . no SOB Objective: Vital Signs: NAD CV: RRR. no MRG Lungs: CTAB Ext: b/l BKA. ASSESSMENT AND PLAN: 64 y/o with questionable h/o positive anti-cardiolipin, non-compliance with AC, ulcerative colitis, alcohol abuse/dependence, thromboembolic events (LLE thrombus s/p L BKA in 2009, positive anti-cardiolipin IGMx2), ? factor V leiden def, PVD , and recent R BKA, who presented due to an out patient MRI showing tibial OM. 1- OM in R tibia: - cont ceftriaxone. total of 6 weeks. ( started on 06/24 , through 07/29) 2- H/o anti-cardiolipin, PVD, thrombophilic events . - cont bridging to coumadin . Give coumadin 7.5 mg today . INR is therapeutic now - further f/u as out pt with heme - will dc asa 3- H/o HL: cont atorvastatin. Dispo: plan for home with [facility]. His pharmacy was called.They will not be able to get his meds delivered today. He has appointment with PCP tomorrow. Plan for Dc in am directly to his PCP , then from there he can call to arrange transportation. Visit type - Emergency Visit Emergency Visit: Yes ED Registration Date: 06/20/19 Care time: The patient presented to the Emergency Department on the above date and was hospitalized for further evaluation of their emergent condition. - New Patient This patient is new to me today: No - Critical Care Critical Care patient: No
[2019-07-03] MEDS: WARFARIN NA 7.5 MG TABLET (FP) PO SCH (17:33)
[2019-07-03] MEDS: ATORVASTATIN CA 20 MG TABLET (FP) PO SCH (20:57)
[2019-07-04] MEDS: ATORVASTATIN CA 20 MG TABLET (FP) PO SCH (01:04)
[2019-07-04 09:05] LABS: INR 2.34 (0.83-1.09); PROTHROMBIN TIME (PATIENT) 27.8 SEC (9.7-13.0)
[2019-07-04] MEDS ORDERED: DEXTROSE 5%-WATER 100 ML IVPB ONE (09:12)
[2019-07-04] MEDS: CEFTRIAXONE 2 GM in DEXTROSE 5%-WATER 100 ML IVPB SCH (09:17)
[2019-07-04] MEDS: MULTIVITAMINS (DAILY MVI) TABLET (FP) PO SCH (09:19)
[2019-07-04] MEDS: LACTOBACILLUS ACIDOPHILUS 1 TABLET PO SCH (09:19)
[2019-07-04] MEDS: FOLIC ACID 1 MG TABLET (FP) PO SCH (09:19)
[2019-07-04] MEDS: THIAMINE HCL 100 MG TABLET (FP) PO SCH (09:20)
[2019-07-04 11:21] VITALS: BP 125/62; PULSE 71; TEMP 97.6
--- NOTE | 2019-07-04 11:38 | DS ---
Physical Exam: SUBJECTIVE: Patient seen and examined at bedside. pt has no acute complaints. denies SOB or CP. OBJECTIVE: Vital Signs Period Temp Pulse Resp BP Sys/Lam Pulse Ox Last 24 Hr 97.6 F-98.0 F 65-87 16-20 109-130/52-77 99 PHYSICAL EXAM GENERAL: The patient is awake, alert, and fully oriented, in no acute distress. HEAD: Normal with no signs of trauma. NECK: Trachea midline, full range of motion, supple. LUNGS: Breath sounds equal, clear to auscultation bilaterally, no wheezes, no crackles, no accessory muscle use. HEART: Regular rate and rhythm, S1, S2 ABDOMEN: Soft, nontender, nondistended, normoactive bowel sounds, no guarding EXTREMITIES: 2+ pulses, warm, well-perfused, b/l BKA. LLE wound non purulent SKIN: Warm, dry, normal turgor, no rashes or lesions noted. LABS Laboratory Results - last 24 hr 07/04/19 06:25 PT with INR 27.80 H INR 2.34 H HOSPITAL COURSE: Date of Admission:06/20/19 Records obtained from [facility] (Jun 14 2014): Has a history of positive anti-cardiolipin, non-compliance with AC, ulcerative colitis, alcohol abuse/dependence. Was admitted at the time for LOC which was deemed likely in the setting of patient's chronic alcohol use. Patient had a history of thromboembolic events (LLE thrombus s/p L BKA in 2009, positive anti-cardiolipin IGMx2). Was previously on warfarin 5mg qhs but had not been compliant. Was rebridged and restarted on warfarin 5mg qhs. Had c onsistently low plt levels (100k) and elevated factor VIII. Was advised to follow up with hematology outpatient. 64 yo M with PMH of Factor V Leiden, renal vein thrombosis, LE DVTs, Peripheral artery disease s/p bilateral BKA, hx of C. diff colitis, admitted for osteomyelitis. RLE MRI (06/10/2019)-There is subcutaneous edema at the level of the amputation and stump with enhancement compatible with evolving cellulitis and possible evolving ulceration. There is enhancement within the bone marrow of the remnant aspect of the tibia in its most distal aspect compatible with osteomyelitis. No evidence of abscess collection. No evidence of osteomyelitis of the remnant proximal third of the fibula. Pt had a wound culture (05/20/2019) of right stump: Klebsiella, staph aureus, Staph coag neg, Diptheria/Corynebacterium. rpt cultures are now negative to date. ID consulted, recs appreciated, pt received ceftriaxone x9 days for a total of 6 weeks, PICC placed. vascular surgery was consulted and obtained bone biopsy showing Klebsiella pneumonia and Staph Aureus with multiple sensitivities. ESR 7, CRP 0.7, will need follow up ESR/CRP outpatient. pt also had an acute uri, which was likely viral and improved. pt was evaluaed by hematology and the ideal AC for antiphospholipid syndrome would be coumadin. the options were discussed with the patient regarding the benefits of warfarin including optimal AC for antiphospholipid syndrome, reversibility, and less risk compared with NOACs for GI bleed as patient has a history of GI bleed. Patient understands that he will require frequent monitoring of INR with coumadin. Pt was on Lovenox 50mg bid for bridging, coumadin 7.5mg and INR was measured. repeat Factor V Leiden testing shows negative for mutation. repeat testing for antiphospholipid syndrome noting negative screen, discussed with hematology and as patient has history of PAD and multiple thrombotic events with 2x positive for anti-cardiolipin antibodies wo uld require life-long anticoagulation. pt should not take asa on dc. pt wa continued on atorvastatin. pt was discharged to PMD office. then home with [facility]. Date of Discharge: 07/04/19 Minutes to complete discharge: 36 Discharge Summary Problems reviewed: Yes Reason For Visit: OSTEOMYELITIS OF RT LOWER EXTREMITY Condition: Improved - Instructions Diet, Activity, Other Instructions: You were admitted for osteomyelities (infection of the bone in your right leg). You had a bone biopsy performed which showed that you were growing bacteria in the bone and had a PICC line (peripheral catheter) placed in order to receive antibiotics when you leave the hospital. You will need a total of 6 weeks of antibiotics to treat the infection ( inclluding the days you got in the hospital ) . While you were admitted you were started on a blood thinner medication, Coumadin, because of your antiphospholipid syndrome after a discussion of the medications that you can be started on. You will need to obtain frequent INR checks to make sure that your levels of coumadin are appropriate and that they are therapeutic. MEDICATIONS START to take coumadin 7.5mg daily at 6PM daily. Follow up with your primary care doctor for INR checks on a regular basis. START to take ceftriaxone 2gm daily through infusion. Your last dose of antibiotics will be on July 29. No aspirin try to avoid Motrin, advil, ibuprofen, and similar medications as they can increase your risk for bleeding REFERRALS Please follow up with your primary care doctor, Dr. Munoz. You have an appointment on ThursdayJuly 03 at 10:45 AM. Please follow up with the infectious disease doctor, Dr. Palacio, within 2 weeks. Please follow up with the hand compositor, Dr. Payne, within 3 weeks. Please follow up with the wound care physician, Dr. Amador. You have an appointment on ThursdayJuly 10 at 10:00 AM. SPECIAL INSTRUCTIONS Avoid falls as you are on a blood thinner. When you are transfering or moving around take care not to fall. You will need frequent INR check and possible dose adjustment of the coumadin based on the INR levels. You will need to start by having your INR checked at least twice a week initially . Goal INR ( 2-3) Your primary care doctor is to monitor your INR level. Follow up with weekly CBC and CMP, ESR, CRP labwork that you can obtain through your primary care doctor while you are on the antibiotics. If you have any symptoms of fevers, increasing pain in your legs, chest pain, shortness of breath, cold and painful extremities, or any other general feelings of unwellness, please call 911 or go to your nearest emergency room. Referrals: Wendie Palacio MD [Staff Physician] - 2 Weeks Piyush Amador DO [Staff Physician] - 2 Weeks Venkata Payne MD [Staff Physician] - 3 Weeks Jessika Munoz MD [Primary Care Provider] - 1 Week Disposition: VNS/HOME HEALTH CARE - Home Medications Comprehensive Discharge Medication List: Ambulatory Orders Folic Acid 1 tab PO DAILY 05/20/19 Multivitamin [Multiple Vitamins] 1 tab PO DAILY 05/20/19 Atorvastatin Calcium [Lipitor] 20 mg PO DAILY 06/21/19 Thiamine HCl [Vitamin B1 -] 100 mg PO BID 06/21/19 Gabapentin 300 mg PO BID 06/27/19 Ceftriaxone [Rocephin -] 2 gm IVPB DAILY #36 vial 06/29/19 Warfarin Na [Coumadin -] 7.5 mg PO DAILY@1800 #30 tablet 06/30/19 This patient is new to me today: Yes Date on this admission: 07/04/19 Emergency Visit: No Critical Care patient: No - Discharge Referral Referred to [facility] No ATTENDING PHYSICIAN STATEMENT I saw and evaluated the patient. I reviewed the resident's note and discussed the case with the resident. I agree with the resident's findings and plan as documented. SUBJECTIVE: OBJECTIVE: ASSESSMENT AND PLAN:
--- NOTE | 2019-07-04 14:43 | PN ---
Teaching Attending Note Name of Resident: Radha Acosta ATTENDING PHYSICIAN STATEMENT I saw and evaluated the patient. I reviewed the resident's note and discussed the case with the resident. I agree with the resident's findings and plan as documented. SUBJECTIVE: No fever or chills. No pain . did not sleep well last night OBJECTIVE: NAD CV: RRR. no MRG Lungs: CTAB Ext: b/l BKA. ASSESSMENT AND PLAN: 64 y/o with questionable h/o positive anti-cardiolipin, non-compliance with AC, ulcerative colitis, alcohol abuse/dependence, thromboembolic events (LLE thrombus s/p L BKA in 2009, positive anti-cardiolipin IGMx2), ? factor V leiden def, PVD , and recent R BKA, who presented due to an out patient MRI showing tibial OM. 1- OM in R tibia: - cont ceftriaxone. total of 6 weeks. ( started on 06/24 , through 07/29) 2- H/o anti-cardiolipin, PVD, thrombophilic events . - INR 2.3. cont coumadin 7.5 - further f/u as out pt with heme - He will follow up with PCP for INR checks 3- H/o HL: cont atorvastatin. Dispo: DC today. transportation to PCP office was arranged for today's appointment. [facility] was arranged
== END 2019-07-04 11:32 | disposition home health service (06) | DRG 344 ==
LOC: JER 10:03 → JERBED 14:22 → J8W 06-21 01:17
PROVIDERS: ADMIT Internal Medicine; ATTEND Internal Medicine
PROC: 0QB Lower Bones, Excision (ICD-10-PCS; 2019-06-23)
PROC: 02HV33Z Insertion of Infusion Device into Superior Vena Cava, Percutaneous Approach (ICD-10-PCS; principal; 2019-06-28)
PROC: B518ZZA Fluoroscopy of Superior Vena Cava, Guidance (ICD-10-PCS; 2019-06-28)
DX: M86.161 Other acute osteomyelitis, right tibia and fibula (principal); M86.8X6 Other osteomyelitis, lower leg; I73.9 Peripheral vascular disease, unspecified; D68.51 Activated protein C resistance; F10.20 Alcohol dependence, uncomplicated; E78.00 Pure hypercholesterolemia, unspecified; J06.9 Acute upper respiratory infection, unspecified; K51.90 Ulcerative colitis, unspecified, without complications; D68.2 Hereditary deficiency of other clotting factors; B96.1 Klebsiella pneumoniae [K. pneumoniae] as the cause of diseases classified elsewhere; B95.62 Methicillin resistant Staphylococcus aureus infection as the cause of diseases classified elsewhere; D68.61 Antiphospholipid syndrome; Z89.511 Acquired absence of right leg below knee; Z86.718 Personal history of other venous thrombosis and embolism; Z89.512 Acquired absence of left leg below knee; Z91.14 Patient's other noncompliance with medication regimen; Z86.73 Personal history of transient ischemic attack (TIA), and cerebral infarction without residual deficits
CPT/HCPCS: 20225; 36415; 36569; 71045-TC-FY; 73564-TC-LT-FY; 76881-RT; 77001-TC-FY; 80048; 80053; 81241; 82248; 83036; 83735; 84100; 85025; 85610; 85613; 85651; 85730; 85732; 86140; 86850; 86900; 86901; 87040; 87070; 87186; 87205; 87804; 87807; 87899; 93005; 93010; 97161-GP; 99285-25; C1751; G0008; J1644; Q2036